=== PATIENT | female | born 1950 | race African-American/Black ===

== ENCOUNTER 2016-09-22 04:58 | Inpatient (IN) | payer MEDICARE, MEDICAID ==
[2016-09-22] MEDS ORDERED: ALBUTEROL SULFATE 0.083% NEB 2.5 MG/3 ML AMPUL NEB ONE ×2 (05:11→07:45)
[2016-09-22] MEDS ORDERED: PREDNISONE 20 MG TABLET PO ONE (05:12)
[2016-09-22] MEDS: ALBUTEROL SULFATE 0.083% NEB 2.5 MG/3 ML AMPUL NEB SCH ×2 (05:12→05:14)
[2016-09-22] MEDS ORDERED: IPRATROPIUM/ALBUTEROL 0.5-2.5 MG/3 ML AMPUL NEB ONE ×2 (05:12→05:46)
--- NOTE | 2016-09-22 05:49 | ER Document Report ---
Doctor's Note Notes: 09/22/16 05:47 I performed a quick triage evaluation of the patient. Patient is a pleasant 65- year-old female with a history of asthma. Patient has been having difficulty breathing since Monday. She's been trying to treat herself at home with breathing treatments. Breathing became much worse overnight tonight. She comes in with tightness and wheezing along some difficulty breathing. On exam she has some mild accessory muscle use. She has poor to fair air movement. On auscultation she has diffuse wheezing. No fevers. She's able to speak in 4-5 word sentences. No previous history of intubation. I will order breathing treatments. We'll give her BiPAP. She's had BiPAP in the past and says it works well for her. I will order magnesium. She's already had Solu-Medrol in triage.
[2016-09-22] MEDS: MAGNESIUM SULFATE/D5W 100 ML IV SCH (06:10)
[2016-09-22 06:12] LABS: ABSOLUTE BASOPHILS # (AUTO) 0.1 10^3/uL (0.0-0.2); ABSOLUTE EOSINOPHILS # (AUTO) 1.1 10^3/uL (0.0-0.6); ABSOLUTE LYMPHOCYTES (AUTO) 2.6 10^3/uL (0.5-4.7); ABSOLUTE NEUT (AUTO) 8.3 10^3/uL (1.7-8.2); BASOPHILS % (AUTO) 0.6 % (0-2); EOSINOPHILS % (AUTO) 8.2 % (0-6); HEMATOCRIT 37.5 % (36.0-47.0); HEMOGLOBIN 12.5 g/dL (12.0-15.5); MEAN CORPUSCULAR HEMOGLOBIN 30.3 pg (27.0-33.4); MEAN CORPUSCULAR HGB CONC 33.4 g/dL (32.0-36.0); MEAN CORPUSCULAR VOLUME 91 fl (80-97); MONOCYTES % (AUTO) 7.8 % (3-13); RED BLOOD COUNT 4.14 10^6/uL (3.72-5.28); SEGMENTED NEUTROPHILS % (AUTO) 63.4 % (42-78)
[2016-09-22 06:26] LABS: ANION GAP 12 (5-19); BLOOD UREA NITROGEN 17 mg/dL (7-20); CALCIUM 9.6 mg/dL (8.4-10.2); CARBON DIOXIDE 27 mmol/L (22-30); CHLORIDE 102 mmol/L (98-107); CREATININE RESULT 0.81 mg/dL (0.52-1.25); GLUCOSE 96 mg/dL (75-110); POTASSIUM 3.9 mmol/L (3.6-5.0); SODIUM 140.5 mmol/L (137-145)
[2016-09-22] MEDS ORDERED: NORMAL SALINE 1000 ML 1,000 ML IV ONE (06:36)
[2016-09-22 06:54] LABS: TROPONIN I < 0.012 ng/mL
--- NOTE | 2016-09-22 07:44 | ER Document Report ---
ED General - General Chief Complaint: Asthma Exacerbation Stated Complaint: DIFFICULTY BREATHING TRAVEL OUTSIDE OF THE [place] IN LAST 30 DAYS: No - HPI Patient complains to provider of: asthma exacerbation Notes: Patient coming in for evaluation shortness of breath. States ongoing for the last few days. Patient states she has been on steroids no recent antibiotics no recent travel. Patient denies fevers. Patient states history of asthma exacerbations rales time in the past normal required BiPAP. Patient states that she's never been intubated before. Patient upon my evaluation is Tom on BiPAP after breathing treatment station that she feels a lot better. - Related Data Allergies/Adverse Reactions: Penicillins Allergy (Intermediate, Verified 11/04/15 10:36) Nausea Home Medications: Current Home Medications Albuterol Sulfate [Ventolin HFA MDI 18 GM] 2 puff IH Q4HP PRN 09/22/16 [History] Citalopram Hydrobromide [Celexa 20 mg Tablet] 20 mg PO DAILY 09/22/16 [History] Ergocalciferol (Vitamin D2) [Drisdol 50,000 Unit (1.25MG) Capsule] 1 cap PO FR@ 1000 09/22/16 [History] Ipratropium/Albuterol Sulfate [Duoneb 3 ml Ampul] 3 ml NEB RTQID 09/22/16 [ History] Lisinopril/Hydrochlorothiazide [Lisinopril-Hctz 20-12.5 mg Tab] 1 each PO DAILY 09/22/16 [History] Loratadine [Claritin 10 mg Tablet] 10 mg PO DAILY 09/22/16 [History] Lovastatin (Mevacor) 20 Mg 20 mg PO QHS 09/22/16 [History] Nystatin 500,000 unit PO QID 09/22/16 [History] Omeprazole 40 mg PO QAM 09/22/16 [History] Oxycodone HCl/Acetaminophen [Percocet 5-325 mg Tablet] 1 tab PO TIDP PRN [History] Potassium Chloride 20 meq PO DAILY 09/22/16 [History] Past Medical History - Social History Smoking Status: Unknown if Ever Smoked Chew tobacco use (# tins/day): No Frequency of alcohol use: None Drug Abuse: None Family History: Reviewed & Not Pertinent Patient has suicidal ideation: No Patient has homicidal ideation: No - Past Medical History Cardiac Medical History: Reports: Hx Hypercholesterolemia, Hx Hypertension Denies: Hx Coronary Artery Disease, Hx Heart Attack Pulmonary Medical History: Reports: Hx Asthma, Hx COPD, Hx Pneumonia Denies: Hx Bronchitis Neurological Medical History: Denies: Hx Cerebrovascular Accident, Hx Seizures Renal/ Medical History: Denies: Hx Peritoneal Dialysis Musculoskeltal Medical History: Denies Hx Arthritis Psychiatric Medical History: Reports: Hx Depression Past Surgical History: Reports: Hx Bowel Surgery, Hx Hysterectomy, Hx Orthopedic Surgery - Right ORIF, Hx Umbilical Hernia - Immunizations Immunizations up to date: Yes Hx Diphtheria, Pertussis, Tetanus Vaccination: Yes Hx Pneumococcal Vaccination: 10/20/11 Review of Systems - Review of Systems Constitutional: No symptoms reported EENT: No symptoms reported Cardiovascular: No symptoms reported Respiratory: Short of breath, Wheezing Gastrointestinal: No symptoms reported Genitourinary: No symptoms reported Female Genitourinary: No symptoms reported Musculoskeletal: No symptoms reported Skin: No symptoms reported Hematologic/Lymphatic: No symptoms reported Neurological/Psychological: No symptoms reported -: Yes All other systems reviewed and negative Physical Exam - Vital signs Vitals: Temp Pulse Resp BP Pulse Ox 98.3 F 113 H 30 H 125/78 92 09/22/16 05:02 09/22/16 05:02 09/22/16 05:02 09/22/16 05:02 09/22/16 05:02 Interpretation: Normal - General General appearance: Appears well, Alert - HEENT Head: Normocephalic, Atraumatic Eyes: Normal Pupils: PERRL - Respiratory Respiratory status: Respiratory distress - Mild on BiPAP Chest status: Nontender Breath sounds: Wheezing Chest palpation: Normal - Cardiovascular Rhythm: Regular Heart sounds: Normal auscultation Murmur: No - Abdominal Inspection: Normal Distension: No distension Bowel sounds: Normal Tenderness: Nontender Organomegaly: No organomegaly - Back Back: Normal, Nontender - Extremities General upper extremity: Normal inspection, Nontender, Normal color, Normal ROM , Normal temperature General lower extremity: Normal inspection, Nontender, Normal color, Normal ROM , Normal temperature, Normal weight bearing. No: Bette's sign - Neurological Neuro grossly intact: Yes Cognition: Normal Orientation: AAOx4 Selmer Coma Scale Eye Opening: Spontaneous Selmer Coma Scale Verbal: Oriented Selmer Coma Scale Motor: Obeys Commands Sweta Coma Scale Total: 15 Speech: Normal Motor strength normal: LUE, RUE, LLE, RLE Sensory: Normal - Psychological Associated symptoms: Normal affect, Normal mood - Skin Skin Temperature: Warm Skin Moisture: Dry Skin Color: Normal Course - Re-evaluation Re-evalutation: 09/22/16 14:38 We were able to titrate the BiPAP off the patient however still requiring oxygen. Multiple reevaluation patient's lung sounds continued to be very coarse wheezing with mild tachypnea. Discussed with PCP will admit the patient for further observation. - Vital Signs Vital signs: Temp Pulse Resp BP Pulse Ox 98.3 F 113 H 26 H 121/63 96 09/22/16 05:02 09/22/16 05:02 09/22/16 11:01 09/22/16 11:00 09/22/16 11:01 - Laboratory Result Diagrams: 09/22/16 05:53 09/22/16 05:53 Laboratory results interpreted by me: 09/22/16 09/22/16 05:53 05:53 WBC 13.0 H RDW 15.0 H Eosinophils % 8.2 H Absolute Neutrophils 8.3 H Absolute Eosinophils 1.1 H Magnesium 1.4 L Critical Care Note - Critical Care Note Total time excluding time spent on procedures (mins): 35 Comments: Multiple evaluations managing BiPAP patient with mild respiratory distress Discharge - Discharge Clinical Impression: Asthma exacerbation Condition: Good Disposition: ADMITTED INPATIENT Admitting Provider: Cresencio Unit Admitted: DOUG
[2016-09-22] MEDS ORDERED: ACETAMINOPHEN 325 MG TABLET PO PRN (12:57)
[2016-09-22] MEDS ORDERED: METHYLPREDNISOLONE INJ 125 MG/2 ML SDV IV ONE (13:30)
--- NOTE | 2016-09-22 14:21 | EKG REPORT ---
SEVERITY:- BORDERLINE ECG - SINUS TACHYCARDIA BORDERLINE PROLONGED QT INTERVAL : Confirmed by: Fernanda Zuniga 22-Sep-2016 14:21:15
[2016-09-22] MEDS: LEVALBUTEROL HCL NEB 1.25 MG/3 ML AMPUL NEB SCH ×2 (14:28→20:28)
[2016-09-22] MEDS: METHYLPREDNISOLONE INJ 125 MG/2 ML SDV IV SCH ×2 (15:25→19:52)
--- NOTE | 2016-09-22 16:58 | PDOC H&P ---
History of Present Illness Admission Date/PCP: 09/22/16 12:57 DAYTON BROWN MD Patient complains of: Worsening chest tightness, dyspnea and wheezes for 4 days. History of Present Illness: MEL SHAY is a 65 year old female with hx of asthma/HTN/Hyperlipidemia/ Chronic back pain/Hip pain s.p right hip replacement/Intestinal malabsorption/ Vitamin D def./Allergic rhinitis/Depression/Morbid obesity who was having worsening dyspnea, wheezes and chest tightness despite using nebulizers at home.She was brought to ER by family for mgt. Past Medical History Cardiac Medical History: Reports: Hyperlipidema, Hypertension Denies: Coronary Artery Disease, Myocardial Infarction Pulmonary Medical History: Reports: Asthma, Chronic Obstructive Pulmonary Disease (COPD), Pneumonia Denies: Bronchitis Neurological Medical History: Denies: Seizures Musculoskeltal Medical History: Denies: Arthritis Psychiatric Medical History: Reports: Depression Hematology: Denies: Anemia Past Surgical History Past Surgical History: Reports: Hysterectomy, Orthopedic Surgery - Right ORIF Social History Smoking Status: Unknown if Ever Smoked Frequency of Alcohol Use: None Hx Recreational Drug Use: No Drugs: None Hx Prescription Drug Abuse: No - Advance Directive Resuscitation Status: Full Code Family History Family History: Reviewed & Not Pertinent Parental Family History Reviewed: Yes Children Family History Reviewed: Yes Sibling(s) Family History Reviewed.: Yes Medication/Allergy Home Medications: Albuterol Sulfate [Ventolin HFA MDI 18 GM] 2 puff IH Q4HP PRN 09/22/16 Citalopram Hydrobromide [Celexa 20 mg Tablet] 20 mg PO DAILY 09/22/16 Ergocalciferol (Vitamin D2) [Drisdol 50,000 Unit (1.25MG) Capsule] 1 cap PO FR@ 1000 09/22/16 Ipratropium/Albuterol Sulfate [Duoneb 3 ml Ampul] 3 ml NEB RTQID 09/22/16 Lisinopril/Hydrochlorothiazide [Lisinopril-Hctz 20-12.5 mg Tab] 1 each PO DAILY 09/22/16 Loratadine [Claritin 10 mg Tablet] 10 mg PO DAILY 09/22/16 Lovastatin (Mevacor) 20 Mg 20 mg PO QHS 09/22/16 Nystatin 500,000 unit PO QID 09/22/16 Omeprazole 40 mg PO QAM 09/22/16 Oxycodone HCl/Acetaminophen [Percocet 5-325 mg Tablet] 1 tab PO TIDP PRN Potassium Chloride 20 meq PO DAILY 09/22/16 Allergies/Adverse Reactions: Penicillins Allergy (Intermediate, Verified 11/04/15 10:36) Nausea Review of Systems Constitutional: PRESENT: as per HPI Eyes: PRESENT: as per HPI Ears: PRESENT: as per HPI Nose, Mouth, and Throat: PRESENT: as per HPI Breasts: PRESENT: as per HPI Cardiovascular: PRESENT: chest pain, dyspnea on exertion Respiratory: PRESENT: cough, dyspnea Gastrointestinal: PRESENT: as per HPI Genitourinary: PRESENT: as per HPI Musculoskeletal: PRESENT: as per HPI Neurological: PRESENT: as per HPI Psychiatric: PRESENT: as per HPI Endocrine: PRESENT: as per HPI Hematologic/Lymphatic: PRESENT: as per HPI Physical Exam Vital Signs: Temp Pulse Resp BP Pulse Ox 98.2 F 110 H 24 H 107/60 97 09/22/16 15:41 09/22/16 15:41 09/22/16 15:41 09/22/16 15:41 09/22/16 15:41 General appearance: PRESENT: severe distress, well-developed, well-nourished Head exam: PRESENT: normocephalic Eye exam: PRESENT: EOMI, PERRLA Ear exam: PRESENT: normal external ear exam, TM's normal bilaterally Mouth exam: PRESENT: moist, neck supple, tongue midline Respiratory exam: PRESENT: decreased breath sounds, wheezes Cardiovascular exam: PRESENT: +S1, +S2 Pulses: PRESENT: +2 pedal pulses bilateral GI/Abdominal exam: PRESENT: normal bowel sounds, soft Rectal exam: PRESENT: deferred Extremities exam: PRESENT: full ROM Musculoskeletal exam: PRESENT: full ROM Neurological exam: PRESENT: alert, awake, oriented to person, oriented to place , oriented to time, CN II-XII grossly intact Psychiatric exam: PRESENT: normal mood Results Impressions: Chest X-Ray 09/22/16 05:46 IMPRESSION: Borderline cardiomegaly with central pulmonary vascular congestion , similar to prior studies. Assessment & Plan - Diagnosis (1) Asthma exacerbation Is this a current diagnosis for this admission?: YesPlan: Ct with oxygen by N/C at 2-3 L/min; Duonebs q4h prn; Xopenex nebs 1.25 mg q6h; Solumedrol 80 mg q6h IV; Levaquin 500 mg qd IV; Symbicort 160/4.5 2 puffs BID. (2) Hypertension Is this a current diagnosis for this admission?: YesPlan: Ct with Lisinopril/HCTZ 20/25 1 qd po; 2 g sodium diet. (3) Hyperlipidemia Is this a current diagnosis for this admission?: YesPlan: Ct with Atorvastain 10 mg qhs since we do not have Lovastatin in our formulary; 200 mg cholesterol diet. (4) Lumbago Qualifiers: Chronicity: chronic Sciatica presence: without sciatica Is this a current diagnosis for this admission?: YesPlan: Ct with Percocet 5/325 1 q6h prn po. Celebrex 200 mg qd po. (5) Intestinal malabsorption Qualifiers: Intestinal malabsorption type: unspecified Qualified Code(s): K90.9 - Intestinal malabsorption, unspecified Is this a current diagnosis for this admission?: YesPlan: Ct with Cholestyramine 4 g BID po. (6) Vitamin D deficiency Is this a current diagnosis for this admission?: YesPlan: Ct with Vitamin D 20599mc weekly po. (7) Rhinitis, allergic Is this a current diagnosis for this admission?: YesPlan: Ct with Claritin 10 mg qd po (8) Depression Is this a current diagnosis for this admission?: YesPlan: Ct with Celexa 20 mg qd po. (9) DVT prophylaxis Is this a current diagnosis for this admission?: YesPlan: Ct with Lovenox 40 mg qd subcut; SCD. - Time Time Spent: 30 to 50 Minutes Medications reviewed and adjusted accordingly: Yes Anticipated discharge: Home Within: within 72 hours - Inpatient Certification Medical Necessity: Failure to Improve With Outpatient Therapy, Significant Comorbidiites Make Outpatient Treatment Too Risky, Need For Continuous Telemetry Monitoring, Need for Nebulizer Therapy and Monitoring of Response, Need for IV Antibiotics
[2016-09-22] MEDS: IPRATROPIUM/ALBUTEROL 0.5-2.5 MG/3 ML AMPUL NEB PRN (17:59)
[2016-09-22] MEDS: CHOLESTYRAMINE/ASPARTAME 4 GM PACKET PO SCH (19:52)
[2016-09-22] MEDS: ATORVASTATIN CALCIUM 10 MG TABLET PO SCH (21:25)
[2016-09-22] MEDS: BUDESONIDE/FORMOTEROL 160-4.5 MCG 60 PUFF/6 GM MDI IH SCH (21:26)
[2016-09-22] MEDS: OXYCODONE-ACETAMINOPHEN 5-325 MG TABLET PO PRN (23:55)
[2016-09-23] MEDS: METHYLPREDNISOLONE INJ 125 MG/2 ML SDV IV SCH ×4 (01:20→21:30)
[2016-09-23] MEDS: LEVALBUTEROL HCL NEB 1.25 MG/3 ML AMPUL NEB SCH ×4 (02:28→20:54)
[2016-09-23 04:33] LABS: ABSOLUTE LYMPHOCYTES (AUTO) 0.8 10^3/uL (0.5-4.7); ABSOLUTE MONOCYTES (AUTO) 0.3 10^3/uL (0.1-1.4); ABSOLUTE NEUT (AUTO) 10.1 10^3/uL (1.7-8.2); BASOPHILS % (AUTO) 0.1 % (0-2); EOSINOPHILS % (AUTO) 0.1 % (0-6); HEMATOCRIT 35.1 % (36.0-47.0); HEMOGLOBIN 11.7 g/dL (12.0-15.5); LYMPHOCYTES % (AUTO) 7.1 % (13-45); MEAN CORPUSCULAR HEMOGLOBIN 30.3 pg (27.0-33.4); MEAN CORPUSCULAR HGB CONC 33.3 g/dL (32.0-36.0); MEAN CORPUSCULAR VOLUME 91 fl (80-97); MONOCYTES % (AUTO) 2.4 % (3-13); RED BLOOD COUNT 3.87 10^6/uL (3.72-5.28); RED CELL DISTRIBUTION WIDTH 15.1 % (11.5-14.0); SEGMENTED NEUTROPHILS % (AUTO) 90.3 % (42-78); WHITE BLOOD COUNT 11.2 10^3/uL (4.0-10.5)
[2016-09-23 04:51] LABS: ALANINE AMINOTRANSFERASE 22 U/L (9-52); ALBUMIN 3.8 g/dL (3.5-5.0); ALKALINE PHOSPHATASE 75 U/L (38-126); ANION GAP 12 (5-19); ASPARTATE AMINO TRANSFERASE 20 U/L (14-36); BILIRUBIN,DIRECT 0.2 mg/dL (0.0-0.4); BILIRUBIN,TOTAL 0.9 mg/dL (0.2-1.3); BLOOD UREA NITROGEN 18 mg/dL (7-20); CALCIUM 9.6 mg/dL (8.4-10.2); CARBON DIOXIDE 27 mmol/L (22-30); CHLORIDE 101 mmol/L (98-107); CREATININE RESULT 0.78 mg/dL (0.52-1.25); Direct HDL 106 mg/dL (>40); GLUCOSE 194 mg/dL (75-110); POTASSIUM 4.2 mmol/L (3.6-5.0); SODIUM 140.1 mmol/L (137-145); TOTAL PROTEIN 6.3 g/dL (6.3-8.2); TRIGLYCERIDES 111 mg/dL (<150)
[2016-09-23 05:02] LABS: DIRECT LDL 56 mg/dL (<100)
[2016-09-23] MEDS: LANSOPRAZOLE 30 MG TAB.RAP.DR PO SCH (05:47)
[2016-09-23] MEDS: CHOLESTYRAMINE/ASPARTAME 4 GM PACKET PO SCH ×2 (08:37→18:08)
[2016-09-23] MEDS: ENOXAPARIN SODIUM INJ 40 MG/0.4 ML DISP.SYRIN SUBCUT SCH (08:41)
[2016-09-23] MEDS: LISINOPRIL 10 MG TABLET PO SCH (10:09)
[2016-09-23] MEDS: LEVOFLOXACIN 500 MG/D5W RTU 100 ML IV SCH (10:09)
[2016-09-23] MEDS: DOCUSATE SODIUM 100 MG CAPSULE PO SCH (10:10)
[2016-09-23] MEDS: CITALOPRAM HYDROBROMIDE 20 MG TABLET PO SCH (10:10)
[2016-09-23] MEDS: CELECOXIB 200 MG CAPSULE PO SCH (10:10)
[2016-09-23] MEDS: HYDROCHLOROTHIAZIDE 25 MG TABLET PO SCH (10:11)
[2016-09-23] MEDS: LORATADINE 10 MG TABLET PO SCH (10:11)
[2016-09-23] MEDS: BUDESONIDE/FORMOTEROL 160-4.5 MCG 60 PUFF/6 GM MDI IH SCH ×2 (10:12→21:30)
[2016-09-23] MEDS: OXYCODONE-ACETAMINOPHEN 5-325 MG TABLET PO PRN (10:20)
--- NOTE | 2016-09-23 13:01 | PDOC PROGRESS REPORT ---
Subjective Progress Note for:: 09/23/16 Subjective:: She is feeling better and dyspnea and wheezes have decreased. We will decrease Solumedrol to 60 mg q6h IV. Physical Exam Vital Signs: Temp Pulse Resp BP Pulse Ox 97.8 F 108 H 20 142/68 H 98 09/23/16 11:55 09/23/16 11:55 09/23/16 11:55 09/23/16 11:55 09/23/16 11:55 Intake & Output 09/22/16 09/23/16 09/24/16 06:59 06:59 06:59 Intake Total 320 720 Balance 320 720 Weight 117.1 kg General appearance: PRESENT: no acute distress, well-developed, well-nourished Head exam: PRESENT: atraumatic, normocephalic Eye exam: PRESENT: EOMI, PERRLA Ear exam: PRESENT: TM's normal bilaterally Mouth exam: PRESENT: moist, neck supple, tongue midline Respiratory exam: PRESENT: decreased breath sounds, wheezes Cardiovascular exam: PRESENT: +S1, +S2 Pulses: PRESENT: +2 pedal pulses bilateral GI/Abdominal exam: PRESENT: normal bowel sounds, soft Extremities exam: PRESENT: full ROM Musculoskeletal exam: PRESENT: full ROM Neurological exam: PRESENT: alert, awake, oriented to person, oriented to place , oriented to time, CN II-XII grossly intact Psychiatric exam: PRESENT: normal mood Results Laboratory Results: 09/23/16 04:07 09/23/16 04:07 09/23/16 09/23/16 09/23/16 04:07 04:07 04:07 WBC 11.2 H RBC 3.87 Hgb 11.7 L Hct 35.1 L MCV 91 MCH 30.3 MCHC 33.3 RDW 15.1 H Plt Count 163 Seg Neutrophils % 90.3 H Lymphocytes % 7.1 L Monocytes % 2.4 L Eosinophils % 0.1 Basophils % 0.1 Absolute Neutrophils 10.1 H Absolute Lymphocytes 0.8 Absolute Monocytes 0.3 Absolute Eosinophils 0.0 Absolute Basophils 0.0 Sodium 140.1 Potassium 4.2 Chloride 101 Carbon Dioxide 27 Anion Gap 12 BUN 18 Creatinine 0.78 Est GFR ( Amer) > 60 Est GFR (Non-Af Amer) > 60 Glucose 194 H Calcium 9.6 Total Bilirubin 0.9 AST 20 ALT 22 Alkaline Phosphatase 75 Total Protein 6.3 Albumin 3.8 Triglycerides 111 Cholesterol 181.40 LDL Cholesterol Direct 56 VLDL Cholesterol 22.0 HDL Cholesterol 106 TSH 0.19 L Impressions: Chest X-Ray 09/22/16 05:46 IMPRESSION: Borderline cardiomegaly with central pulmonary vascular congestion , similar to prior studies. Assessment & Plan - Diagnosis (1) Asthma exacerbation Is this a current diagnosis for this admission?: YesPlan: Ct with oxygen by N/C at 2-3 L/min; Duonebs q4h prn; Xopenex nebs 1.25 mg q6h; Solumedrol 60 mg q6h IV; Levaquin 500 mg qd IV; Symbicort 160/4.5 2 puffs BID. (2) Hypertension Is this a current diagnosis for this admission?: YesPlan: Ct with Lisinopril/HCTZ 20/25 1 qd po; 2 g sodium diet. (3) Hyperlipidemia Is this a current diagnosis for this admission?: YesPlan: Ct with Atorvastain 10 mg qhs since we do not have Lovastatin in our formulary; 200 mg cholesterol diet. (4) Lumbago Qualifiers: Chronicity: chronic Sciatica presence: without sciatica Is this a current diagnosis for this admission?: YesPlan: Ct with Percocet 5/325 1 q6h prn po. Celebrex 200 mg qd po. (5) Intestinal malabsorption Qualifiers: Intestinal malabsorption type: unspecified Qualified Code(s): K90.9 - Intestinal malabsorption, unspecified Is this a current diagnosis for this admission?: YesPlan: Ct with Cholestyramine 4 g BID po. (6) Vitamin D deficiency Is this a current diagnosis for this admission?: YesPlan: Ct with Vitamin D 28248mi weekly po. (7) Rhinitis, allergic Is this a current diagnosis for this admission?: YesPlan: Ct with Claritin 10 mg qd po (8) Depression Is this a current diagnosis for this admission?: YesPlan: Ct with Celexa 20 mg qd po. (9) DVT prophylaxis Is this a current diagnosis for this admission?: YesPlan: Ct with Lovenox 40 mg qd subcut; SCD.
[2016-09-23] MEDS: ATORVASTATIN CALCIUM 10 MG TABLET PO SCH (21:29)
[2016-09-24] MEDS: LEVALBUTEROL HCL NEB 1.25 MG/3 ML AMPUL NEB SCH ×4 (02:10→20:33)
[2016-09-24] MEDS: METHYLPREDNISOLONE INJ 125 MG/2 ML SDV IV SCH ×4 (04:10→22:21)
[2016-09-24] MEDS: LANSOPRAZOLE 30 MG TAB.RAP.DR PO SCH (06:29)
[2016-09-24 06:31] LABS: HEMATOCRIT 34.4 % (36.0-47.0); HEMOGLOBIN 11.4 g/dL (12.0-15.5); HGB HCT DIFFERENCE -0.2; MEAN CORPUSCULAR HEMOGLOBIN 30.1 pg (27.0-33.4); MEAN CORPUSCULAR HGB CONC 33.2 g/dL (32.0-36.0); MEAN CORPUSCULAR VOLUME 91 fl (80-97); WHITE BLOOD COUNT 15.4 10^3/uL (4.0-10.5)
[2016-09-24 06:55] LABS: ANISOCYTOSIS SLIGHT; BAND NEUTROPHILS % (MANUAL) 1 % (3-5); BASOPHILS % (MANUAL) 0 % (0-2); BURR CELLS SLIGHT; EOSINOPHILS % (MANUAL) 1 % (0-6); LYMPHOCYTES % (MANUAL) 5 % (13-45); OVALOCYTES SLIGHT; POIKILOCYTOSIS SLIGHT; TOTAL CELLS COUNTED 100; TOXIC GRANULATION 1+
[2016-09-24 06:57] LABS: ALANINE AMINOTRANSFERASE 22 U/L (9-52); ALBUMIN 3.6 g/dL (3.5-5.0); ALKALINE PHOSPHATASE 70 U/L (38-126); ANION GAP 15 (5-19); ASPARTATE AMINO TRANSFERASE 18 U/L (14-36); BILIRUBIN,DIRECT 0.3 mg/dL (0.0-0.4); BILIRUBIN,TOTAL 0.6 mg/dL (0.2-1.3); BLOOD UREA NITROGEN 17 mg/dL (7-20); CALCIUM 9.6 mg/dL (8.4-10.2); CARBON DIOXIDE 24 mmol/L (22-30); CHLORIDE 100 mmol/L (98-107); GLUCOSE 197 mg/dL (75-110); POTASSIUM 4.2 mmol/L (3.6-5.0); SODIUM 138.7 mmol/L (137-145); TOTAL PROTEIN 5.9 g/dL (6.3-8.2)
[2016-09-24] MEDS: ENOXAPARIN SODIUM INJ 40 MG/0.4 ML DISP.SYRIN SUBCUT SCH (08:45)
[2016-09-24] MEDS: CHOLESTYRAMINE/ASPARTAME 4 GM PACKET PO SCH ×2 (08:46→18:15)
[2016-09-24] MEDS ORDERED: GLUCAGON,HUMAN RECOMB 1 MG INJ IM PRN (08:52)
[2016-09-24] MEDS ORDERED: DEXTROSE 50%-WATER 25 GM/50 ML DISP.SYRIN IV PRN ×2 (08:52)
[2016-09-24] MEDS ORDERED: DEXTROSE 40% GEL 15 GM TUBE PO PRN ×2 (08:52)
[2016-09-24 09:44] LABS: FREE T3 2.59 pg/mL (2.77-5.27)
[2016-09-24] MEDS: HYDROCHLOROTHIAZIDE 25 MG TABLET PO SCH (10:24)
[2016-09-24] MEDS: LORATADINE 10 MG TABLET PO SCH (10:25)
[2016-09-24] MEDS: LISINOPRIL 10 MG TABLET PO SCH (10:25)
[2016-09-24] MEDS: CELECOXIB 200 MG CAPSULE PO SCH (10:25)
[2016-09-24] MEDS: CITALOPRAM HYDROBROMIDE 20 MG TABLET PO SCH (10:25)
[2016-09-24] MEDS: LEVOFLOXACIN 500 MG/D5W RTU 100 ML IV SCH (10:26)
[2016-09-24] MEDS: DOCUSATE SODIUM 100 MG CAPSULE PO SCH (10:26)
[2016-09-24] MEDS: BUDESONIDE/FORMOTEROL 160-4.5 MCG 60 PUFF/6 GM MDI IH SCH ×2 (10:36→22:21)
[2016-09-24] MEDS: IPRATROPIUM/ALBUTEROL 0.5-2.5 MG/3 ML AMPUL NEB SCH ×3 (12:36→20:33)
[2016-09-24] MEDS: INSULIN LISPRO 100 UNIT/ML 3 ML VIAL SUBCUT PRN ×2 (13:16→18:15)
--- NOTE | 2016-09-24 20:15 | PDOC PROGRESS REPORT ---
Subjective Progress Note for:: 09/24/16 Subjective:: Patient seen earlier today on morning rounds. Patient reports she's feeling significantly better. Patient denies chest pain, abdominal pain, nausea, vomiting, fevers, chills, diarrhea, constipation, headache, new onset weakness. Physical Exam Vital Signs: Temp Pulse Resp BP Pulse Ox 98.2 F 89 18 134/71 H 94 09/24/16 07:58 09/24/16 16:33 09/24/16 16:33 09/24/16 07:58 09/24/16 16:33 Intake & Output 09/23/16 09/24/16 09/25/16 06:59 06:59 06:59 Intake Total 320 2202 1200 Output Total 3 Balance 320 2202 1197 Weight 117.1 kg 104.8 kg Exam: General: Awake alert and oriented 3, no acute respiratory distress, obese HEENT: AT/NC, PERRL, EOMI, oropharynx is moist, pink, no scleral icterus, no conjunctival injection Neck: No JVD, trachea midline Chest: Bilateral end expiratory wheezes CV: Regular rate and rhythm, normal S1 and S2, no murmur, rub, or gallop Abdomen: Soft, nontender to palpation, nondistended, active bowel sounds; no rebound, rigidity, or guarding Extremities: No cyanosis, clubbing; 1+edema Neuro: Cranial nerves II through XII are grossly intact without focal deficits; awake alert and oriented 3 Psych: Normal mood and affect Results Laboratory Results: 09/24/16 05:24 09/24/16 05:24 09/24/16 09/24/16 09/24/16 05:24 05:24 05:24 WBC 15.4 H RBC 3.80 Hgb 11.4 L Hct 34.4 L MCV 91 MCH 30.1 MCHC 33.2 RDW 15.0 H Plt Count 161 Seg Neutrophils % Not Reportable Lymphocytes % Not Reportable Monocytes % Not Reportable Eosinophils % Not Reportable Basophils % Not Reportable Absolute Neutrophils Not Reportable Absolute Lymphocytes Not Reportable Absolute Monocytes Not Reportable Absolute Eosinophils Not Reportable Absolute Basophils Not Reportable Sodium 138.7 Potassium 4.2 Chloride 100 Carbon Dioxide 24 Anion Gap 15 BUN 17 Creatinine 0.70 Est GFR ( Amer) > 60 Est GFR (Non-Af Amer) > 60 Glucose 197 H Calcium 9.6 Total Bilirubin 0.6 AST 18 ALT 22 Alkaline Phosphatase 70 Total Protein 5.9 L Albumin 3.6 Free T4 1.00 Free T3 pg/mL 2.59 L Impressions: Chest X-Ray 09/22/16 05:46 IMPRESSION: Borderline cardiomegaly with central pulmonary vascular congestion , similar to prior studies. Assessment & Plan - Diagnosis (1) Acute respiratory failure with hypoxia Is this a current diagnosis for this admission?: YesPlan: Continue oxygen as needed (2) Asthma exacerbation Is this a current diagnosis for this admission?: YesPlan: Continue patient on current study Medrol dosing. Due to current bronchospasm feel that patient is not quite ready for de-escalation to oral steroids. Continue nebulized treatments (3) Depression Is this a current diagnosis for this admission?: Yes (4) Hyperlipidemia Is this a current diagnosis for this admission?: Yes (5) Hypertension Is this a current diagnosis for this admission?: YesPlan: Continue home medications (6) Obesity Qualifiers: Obesity type: due to excess calories Obesity severity: morbid Qualified Code(s): E66.01 - Morbid (severe) obesity due to excess calories Is this a current diagnosis for this admission?: Yes (7) Vitamin D deficiency Is this a current diagnosis for this admission?: Yes (8) DVT prophylaxis Is this a current diagnosis for this admission?: Yes - Time Time Spent with patient: 15-24 minutes Medications reviewed and adjusted accordingly: Yes Anticipated discharge: Home Within: within 48 hours
[2016-09-24] MEDS: IPRATROPIUM/ALBUTEROL 0.5-2.5 MG/3 ML AMPUL NEB PRN (20:32)
[2016-09-24] MEDS ORDERED: IPRATROPIUM/ALBUTEROL 0.5-2.5 MG/3 ML AMPUL NEB ONE (21:00)
[2016-09-24] MEDS: ATORVASTATIN CALCIUM 10 MG TABLET PO SCH (22:21)
[2016-09-25] MEDS: METHYLPREDNISOLONE INJ 125 MG/2 ML SDV IV SCH ×2 (04:10→08:37)
[2016-09-25 06:28] LABS: HEMATOCRIT 35.1 % (36.0-47.0); HEMOGLOBIN 11.3 g/dL (12.0-15.5); HGB HCT DIFFERENCE -1.2; MEAN CORPUSCULAR HEMOGLOBIN 29.6 pg (27.0-33.4); MEAN CORPUSCULAR HGB CONC 32.3 g/dL (32.0-36.0); MEAN CORPUSCULAR VOLUME 92 fl (80-97); RED BLOOD COUNT 3.83 10^6/uL (3.72-5.28); RED CELL DISTRIBUTION WIDTH 15.1 % (11.5-14.0); WHITE BLOOD COUNT 11.5 10^3/uL (4.0-10.5)
[2016-09-25] MEDS: LANSOPRAZOLE 30 MG TAB.RAP.DR PO SCH (06:30)
[2016-09-25 06:51] LABS: BLOOD UREA NITROGEN 20 mg/dL (7-20); CALCIUM 9.7 mg/dL (8.4-10.2); CREATININE RESULT 0.75 mg/dL (0.52-1.25); GLUCOSE 203 mg/dL (75-110)
[2016-09-25 06:52] LABS: ALANINE AMINOTRANSFERASE 20 U/L (9-52); ALBUMIN 3.5 g/dL (3.5-5.0); ALKALINE PHOSPHATASE 64 U/L (38-126); ANION GAP 13 (5-19); ASPARTATE AMINO TRANSFERASE 19 U/L (14-36); BILIRUBIN,TOTAL 0.5 mg/dL (0.2-1.3); CARBON DIOXIDE 23 mmol/L (22-30); CHLORIDE 101 mmol/L (98-107); POTASSIUM 3.6 mmol/L (3.6-5.0); SODIUM 137.3 mmol/L (137-145); TOTAL PROTEIN 5.7 g/dL (6.3-8.2)
[2016-09-25 07:13] LABS: BAND NEUTROPHILS % (MANUAL) 3 % (3-5); BASOPHILS % (MANUAL) 0 % (0-2); EOSINOPHILS % (MANUAL) 0 % (0-6); LYMPHOCYTES % (MANUAL) 4 % (13-45); TOTAL CELLS COUNTED 100
[2016-09-25 07:14] LABS: ANISOCYTOSIS SLIGHT
[2016-09-25 07:16] LABS: OVALOCYTES 1+; POIKILOCYTOSIS 1+; POLYCHROMASIA SLIGHT; TARGET CELLS SLIGHT
[2016-09-25 07:18] LABS: BURR CELLS 1+
[2016-09-25] MEDS: IPRATROPIUM/ALBUTEROL 0.5-2.5 MG/3 ML AMPUL NEB SCH ×4 (08:24→20:22)
[2016-09-25] MEDS: OXYCODONE-ACETAMINOPHEN 5-325 MG TABLET PO PRN (08:37)
[2016-09-25] MEDS: CHOLESTYRAMINE/ASPARTAME 4 GM PACKET PO SCH ×2 (08:37→16:14)
[2016-09-25] MEDS: ENOXAPARIN SODIUM INJ 40 MG/0.4 ML DISP.SYRIN SUBCUT SCH (08:39)
[2016-09-25] MEDS: BUDESONIDE/FORMOTEROL 160-4.5 MCG 60 PUFF/6 GM MDI IH SCH ×2 (10:13→21:29)
[2016-09-25] MEDS: LISINOPRIL 10 MG TABLET PO SCH (10:13)
[2016-09-25] MEDS: LORATADINE 10 MG TABLET PO SCH (10:13)
[2016-09-25] MEDS: CITALOPRAM HYDROBROMIDE 20 MG TABLET PO SCH (10:14)
[2016-09-25] MEDS: DOCUSATE SODIUM 100 MG CAPSULE PO SCH (10:14)
[2016-09-25] MEDS: HYDROCHLOROTHIAZIDE 25 MG TABLET PO SCH (10:14)
[2016-09-25] MEDS: CELECOXIB 200 MG CAPSULE PO SCH (10:14)
[2016-09-25] MEDS: LEVOFLOXACIN 500 MG/D5W RTU 100 ML IV SCH (10:14)
[2016-09-25] MEDS: INSULIN LISPRO 100 UNIT/ML 3 ML VIAL SUBCUT PRN ×2 (11:54→21:29)
--- NOTE | 2016-09-25 15:22 | PDOC PROGRESS REPORT ---
Subjective Progress Note for:: 09/25/16 Subjective:: Patient reports she's breathing significantly better. Patient denies chest pain, abdominal pain, nausea, vomiting, fevers, chills, diarrhea, constipation, headache, new onset weakness. Physical Exam Vital Signs: Temp Pulse Resp BP Pulse Ox 98.5 F 89 18 146/72 H 94 09/25/16 00:16 09/25/16 02:00 09/25/16 00:16 09/25/16 00:16 09/25/16 00:16 Intake & Output 09/24/16 09/25/16 09/26/16 06:59 06:59 06:59 Intake Total 2202 1717 Output Total 3 Balance 2202 1714 Weight 104.8 kg Exam: General: Awake alert and oriented 3, no acute respiratory distress, obese HEENT: AT/NC, PERRL, EOMI, oropharynx is moist, pink, no scleral icterus, no conjunctival injection Neck: No JVD, trachea midline Chest: CTAB CV: IRR, normal S1 and S2, no murmur, rub, or gallop Abdomen: Soft, nontender to palpation, nondistended, active bowel sounds; no rebound, rigidity, or guarding Extremities: No cyanosis, clubbing; trace edema Neuro: Cranial nerves II through XII are grossly intact without focal deficits; awake alert and oriented 3 Psych: Normal mood and affect Results Laboratory Results: 09/25/16 05:24 09/25/16 05:24 09/24/16 09/25/16 09/25/16 05:24 05:24 05:24 WBC 11.5 H RBC 3.83 Hgb 11.3 L Hct 35.1 L MCV 92 MCH 29.6 MCHC 32.3 RDW 15.1 H Plt Count 179 Seg Neutrophils % Not Reportable Lymphocytes % Not Reportable Monocytes % Not Reportable Eosinophils % Not Reportable Basophils % Not Reportable Absolute Neutrophils Not Reportable Absolute Lymphocytes Not Reportable Absolute Monocytes Not Reportable Absolute Eosinophils Not Reportable Absolute Basophils Not Reportable Sodium 137.3 Potassium 3.6 Chloride 101 Carbon Dioxide 23 Anion Gap 13 BUN 20 Creatinine 0.75 Est GFR ( Amer) > 60 Est GFR (Non-Af Amer) > 60 Glucose 203 H Calcium 9.7 Total Bilirubin 0.5 AST 19 ALT 20 Alkaline Phosphatase 64 Total Protein 5.7 L Albumin 3.5 Free T4 1.00 Free T3 pg/mL 2.59 L Impressions: Chest X-Ray 09/22/16 05:46 IMPRESSION: Borderline cardiomegaly with central pulmonary vascular congestion , similar to prior studies. Assessment & Plan - Diagnosis (1) PAF (paroxysmal atrial fibrillation) Is this a current diagnosis for this admission?: YesPlan: Patient's heart rhythm is regular and reports that it is occasionally this way. She is on no rate controlling medications at home. Concern for PAF or PMAT. Will obtain cardiac enzymes and EKG. (2) Acute respiratory failure with hypoxia Is this a current diagnosis for this admission?: YesPlan: Continue oxygen as needed Continue treatment for asthma exacerbation. (3) Asthma exacerbation Is this a current diagnosis for this admission?: YesPlan: Transition patient to oral steroids today. Continue to monitor patient's response to nebulized treatments. (4) Depression Is this a current diagnosis for this admission?: Yes (5) Hyperlipidemia Is this a current diagnosis for this admission?: Yes (6) Hypertension Is this a current diagnosis for this admission?: Yes (7) Obesity Qualifiers: Obesity type: due to excess calories Obesity severity: morbid Qualified Code(s): E66.01 - Morbid (severe) obesity due to excess calories Is this a current diagnosis for this admission?: Yes (8) Vitamin D deficiency Is this a current diagnosis for this admission?: Yes (9) DVT prophylaxis Is this a current diagnosis for this admission?: Yes - Time Time Spent with patient: 25-34 minutes Medications reviewed and adjusted accordingly: Yes Anticipated discharge: Home Within: within 24 hours, within 48 hours
[2016-09-25 16:35] LABS: CREATINE KINASE MB 1.62 ng/mL (<4.55)
[2016-09-25 16:36] LABS: TROPONIN I < 0.012 ng/mL
[2016-09-25] MEDS: PREDNISONE 20 MG TABLET PO SCH (17:14)
[2016-09-25] MEDS: ATORVASTATIN CALCIUM 10 MG TABLET PO SCH (21:29)
--- NOTE | 2016-09-25 22:50 | EKG REPORT ---
SEVERITY:- BORDERLINE ECG - SINUS TACHYCARDIA VENTRICULAR PREMATURE COMPLEX INTERPOLATED VENTRICULAR PREMATURE COMPLEX : Confirmed by: Fernanda Zuniga 25-Sep-2016 22:49:05
[2016-09-26] MEDS: LANSOPRAZOLE 30 MG TAB.RAP.DR PO SCH (06:08)
[2016-09-26] MEDS: CHOLESTYRAMINE/ASPARTAME 4 GM PACKET PO SCH ×2 (07:51→16:25)
[2016-09-26] MEDS: ENOXAPARIN SODIUM INJ 40 MG/0.4 ML DISP.SYRIN SUBCUT SCH (07:51)
[2016-09-26] MEDS: IPRATROPIUM/ALBUTEROL 0.5-2.5 MG/3 ML AMPUL NEB SCH ×3 (08:10→16:10)
[2016-09-26] MEDS: LEVOFLOXACIN 500 MG/D5W RTU 100 ML IV SCH (10:11)
[2016-09-26] MEDS: LORATADINE 10 MG TABLET PO SCH (10:12)
[2016-09-26] MEDS: PREDNISONE 20 MG TABLET PO SCH (10:12)
[2016-09-26] MEDS: LISINOPRIL 10 MG TABLET PO SCH (10:12)
[2016-09-26] MEDS: CELECOXIB 200 MG CAPSULE PO SCH (10:12)
[2016-09-26] MEDS: DOCUSATE SODIUM 100 MG CAPSULE PO SCH (10:12)
[2016-09-26] MEDS: BUDESONIDE/FORMOTEROL 160-4.5 MCG 60 PUFF/6 GM MDI IH SCH (10:13)
[2016-09-26] MEDS: CITALOPRAM HYDROBROMIDE 20 MG TABLET PO SCH (10:13)
[2016-09-26] MEDS: HYDROCHLOROTHIAZIDE 25 MG TABLET PO SCH (10:13)
--- NOTE | 2016-09-26 16:53 | PDOC DISCHARGE SUMMARY ---
General - Admit/Disc Date/PCP Admission Date/Primary Care Provider: 09/22/16 12:57 DAYTON BROWN MD Discharge Date: 09/26/16 - Discharge Diagnosis (1) Asthma exacerbation Is this a current diagnosis for this admission?: Yes (2) Hypertension Is this a current diagnosis for this admission?: Yes (3) Hyperlipidemia Is this a current diagnosis for this admission?: Yes (4) Lumbago Is this a current diagnosis for this admission?: Yes (5) Intestinal malabsorption Is this a current diagnosis for this admission?: Yes (6) Vitamin D deficiency Is this a current diagnosis for this admission?: Yes (7) Rhinitis, allergic Is this a current diagnosis for this admission?: Yes (8) Depression Is this a current diagnosis for this admission?: Yes (9) DVT prophylaxis Is this a current diagnosis for this admission?: Yes - Additional Information Resuscitation Status: Full Code Discharge Activity: Activity As Tolerated Home Medications: Albuterol Sulfate [Ventolin HFA MDI 18 GM] 2 puff IH Q4HP PRN 09/22/16 Citalopram Hydrobromide [Celexa 20 mg Tablet] 20 mg PO DAILY 09/22/16 Ergocalciferol (Vitamin D2) [Drisdol 50,000 unit (1.25MG) Capsule] 1 cap PO FR@ 1000 09/22/16 Ipratropium/Albuterol Sulfate [Duoneb 3 ml Ampul] 3 ml NEB RTQID 09/22/16 Lisinopril/Hydrochlorothiazide [Lisinopril-Hctz 20-12.5 mg Tab] 1 each PO DAILY 09/22/16 Loratadine [Claritin 10 mg Tablet] 10 mg PO DAILY 09/22/16 Lovastatin (Mevacor) 20 Mg 20 mg PO QHS 09/22/16 Nystatin 500,000 unit PO QID 09/22/16 Omeprazole 40 mg PO QAM 09/22/16 Oxycodone HCl/Acetaminophen [Percocet 5-325 mg Tablet] 1 tab PO TIDP PRN Potassium Chloride 20 meq PO DAILY 09/22/16 Doxycycline Hyclate 100 mg PO BID #14 tablet 09/26/16 Prednisone [Deltasone 20 mg Tablet] 20 mg PO ASDIR #15 tablet 05/01/17 History of Present Illness History of Present Illness: MEL SHAY is a 65 year old female with hx of asthma/HTN/Hyperlipidemia/ Chronic back pain/Hip pain s.p right hip replacement/Intestinal malabsorption/ Vitamin D def./Allergic rhinitis/Depression/Morbid obesity who was having worsening dyspnea, wheezes and chest tightness despite using nebulizers at home.She was brought to ER by family for mgt. Hospital Course Hospital Course: 65 yr old woman who was admitted for acute hypoxic respiratory failure secondary to acute asthma exacerbation. She was admitted at [facility] and was put on IV solumedrol, Levaquin , nebulization and oxygen therapy. Her steroid was switched to prednisone and she is stable and back to her basleine. Her blood culture grew staph. species sensitive to Doxycycline. She will be discharged home on Prednisone and Doxycycline. She will f/u with PCP within 1 week. Physical Exam Vital Signs: Temp Pulse Resp BP Pulse Ox 98.6 F 102 H 24 H 151/87 H 100 09/26/16 15:44 09/26/16 16:13 09/26/16 16:13 09/26/16 15:44 09/26/16 16:13 Intake & Output 09/25/16 09/26/16 09/27/16 06:59 06:59 06:59 Intake Total 1729 1163 177 Output Total 3 Balance 1726 1163 177 Weight 118.7 kg 121.2 kg General appearance: PRESENT: well-developed, well-nourished Head exam: PRESENT: atraumatic, normocephalic Eye exam: PRESENT: EOMI, PERRLA Mouth exam: PRESENT: moist, neck supple, tongue midline Respiratory exam: PRESENT: clear to auscultation milena, symmetrical Cardiovascular exam: PRESENT: +S1, +S2 Pulses: PRESENT: +2 pedal pulses bilateral GI/Abdominal exam: PRESENT: normal bowel sounds, soft Rectal exam: PRESENT: deferred Musculoskeletal exam: PRESENT: full ROM Neurological exam: PRESENT: alert, awake, oriented to person, oriented to place , oriented to time, CN II-XII grossly intact Psychiatric exam: PRESENT: normal mood Results Laboratory Results: 09/25/16 05:24 09/25/16 05:24 09/22/16 16:38 Blood Blood Culture - Final Staphylococcus Hominis 09/25/16 09/25/16 15:45 15:45 Creatine Kinase 62 CK-MB (CK-2) 1.62 Troponin I < 0.012 Impressions: Chest X-Ray 09/22/16 05:46 IMPRESSION: Borderline cardiomegaly with central pulmonary vascular congestion , similar to prior studies.
[2016-09-26 18:40] VITALS: BP 134/78
[2016-09-27] MEDS ORDERED: PREDNISONE 20 MG TABLET PO SCH (10:00)
[2016-09-27] MEDS ORDERED: LEVOFLOXACIN 500 MG TABLET PO SCH (10:00)
[2016-09-30] MEDS ORDERED: ERGOCALCIFEROL (VITAMIN D2) 50000 UNIT (1.25 MG) CAPSULE PO SCH (10:00)
== END 2016-09-26 19:31 | disposition home or self-care (01) | DRG 202 ==
LOC: ER 04:58 → UNDOADMIN 11:17 → EH 11:17 → 3W 16:48
PROVIDERS: ADMIT Internal Medicine; ATTEND Internal Medicine
DX: J45.901 Unspecified asthma with (acute) exacerbation (principal); J96.01 Acute respiratory failure with hypoxia; K90.9 Intestinal malabsorption, unspecified; Z68.41 Body mass index [BMI] 40.0-44.9, adult; I10 Essential (primary) hypertension; E78.5 Hyperlipidemia, unspecified; I48.0 Paroxysmal atrial fibrillation; E55.9 Vitamin D deficiency, unspecified; M54.9 Dorsalgia, unspecified; E66.01 Morbid (severe) obesity due to excess calories; F32.9 Major depressive disorder, single episode, unspecified; Z96.641 Presence of right artificial hip joint; Z79.51 Long term (current) use of inhaled steroids; Z79.52 Long term (current) use of systemic steroids
CPT/HCPCS: 36415; 71010; 80048; 80053; 80061; 82550; 82553; 82962; 83735; 83880; 84439; 84443; 84481; 84484; 85025; 87040; 87077; 87186; 93005; 93010; 94640; 96361; 96365; 99291; J1650; J1815; J1956; J2930; J3475; J3490; J7030; J7512; J7620

== ENCOUNTER 2016-11-10 14:23 | Emergency (ER) | payer MEDICARE, MEDICAID ==
[2016-11-10] MEDS ORDERED: IPRATROPIUM/ALBUTEROL 0.5-2.5 MG/3 ML AMPUL NEB ONE ×4 (14:29→18:27)
[2016-11-10] MEDS ORDERED: METHYLPREDNISOLONE INJ 125 MG/2 ML SDV IV ONE (14:29)
--- NOTE | 2016-11-10 14:31 | ER Document Report ---
ED Medical Screen (RME) - General Mode of Arrival: Wheelchair Information source: Patient TRAVEL OUTSIDE OF THE [place] IN LAST 30 DAYS: No - HPI Patient complains to provider of: shortness of breath Onset: This morning Associated Symptoms: Other - see notes above <PHILIPP FISHMAN - Last Filed: 11/10/16 16:16> <YORDANRADHA KING - Last Filed: 11/10/16 16:27> - General Chief Complaint: Shortness Of Breath Stated Complaint: DIFFICULTY BREATHING Time Seen by Provider: 11/10/16 14:28 Notes: 65 year old female with history of asthma and COPD presents to the ED complaining of shortness of breath that started earlier today. Patient denies cough or fever. Patient reports that she is sometimes oxygen dependent. I have greeted and performed a rapid initial assessment of this patient. A comprehensive ED assessment and evaluation of the patient, analysis of test results and completion of the medical decision making process will be conducted by additional ED providers. (PHILIPP FISHMAN) - Related Data Allergies/Adverse Reactions: Penicillins Allergy (Intermediate, Verified 11/04/15 10:36) Nausea Past Medical History - General Information source: Patient - Social History Family history: Reviewed & Not Pertinent - Past Medical History Cardiac Medical History: Reports: Hx Hypercholesterolemia, Hx Hypertension Denies: Hx Coronary Artery Disease, Hx Heart Attack Pulmonary Medical History: Reports: Hx Asthma, Hx COPD, Hx Pneumonia Denies: Hx Bronchitis Neurological Medical History: Denies: Hx Cerebrovascular Accident, Hx Seizures Renal/ Medical History: Denies: Hx Peritoneal Dialysis Musculoskeltal Medical History: Denies Hx Arthritis Psychiatric Medical History: Reports: Hx Depression Past Surgical History: Reports: Hx Bowel Surgery, Hx Hysterectomy, Hx Orthopedic Surgery - Right ORIF, Hx Umbilical Hernia - Immunizations Immunizations up to date: Yes Hx Diphtheria, Pertussis, Tetanus Vaccination: Yes <PHILIPP FISHMAN - Last Filed: 11/10/16 16:16> Review of Systems - Review of Systems Constitutional: No symptoms reported. denies: Fever EENT: No symptoms reported Cardiovascular: No symptoms reported Respiratory: See HPI, Short of breath. denies: Cough Gastrointestinal: No symptoms reported Genitourinary: No symptoms reported Female Genitourinary: No symptoms reported Musculoskeletal: No symptoms reported Skin: No symptoms reported Hematologic/Lymphatic: No symptoms reported Neurological/Psychological: No symptoms reported -: Yes All other systems reviewed and negative <PHILIPP FISHMAN - Last Filed: 11/10/16 16:16> Physical Exam - General General appearance: Alert - Respiratory Respiratory status: Respiratory distress Breath sounds: Decreased air movement - bilaterally, Wheezing - Cardiovascular Rhythm: Regular Heart sounds: Normal auscultation <PHILIPP FISHMAN - Last Filed: 11/10/16 16:16> Course - Laboratory Result Diagrams: 11/10/16 14:43 11/10/16 14:43 <PHILIPP FISHMAN - Last Filed: 11/10/16 16:16> - Laboratory Result Diagrams: 11/10/16 14:43 11/10/16 14:43 <RADHA FARR - Last Filed: 11/10/16 16:27> - Re-evaluation Re-evalutation: 11/10/16 16:27 I personally performed the services described in the documentation, reviewed and edited the documentation which was dictated to the scribe in my presence, and it accurately records my words and actions. (RADHA FARR) - Laboratory Laboratory results interpreted by me: 11/10/16 14:43 WBC 12.4 H MCHC 31.7 L RDW 15.4 H Eosinophils % 10.7 H Absolute Eosinophils 1.3 H Scribe Documentation - Scribe Written by Karuna:: Karuna Lui, 11/10/2016 1550 acting as scribe for :: Yordan <PHILIPP FISHMAN - Last Filed: 11/10/16 16:16>
[2016-11-10] MEDS: MAGNESIUM SULFATE/D5W 100 ML IV SCH ×2 (14:39→17:18)
[2016-11-10 15:08] LABS: PROTHROMBIN TIME 11.7 SEC (11.4-15.4)
[2016-11-10 15:09] LABS: VENOUS BLOOD BASE EXCESS -0.4 mmol/L; VENOUS BLOOD HCO3 26.1 mmol/L (20-32); VENOUS BLOOD PCO2 50.7 mmHg (35-63); VENOUS BLOOD PH 7.33 (7.30-7.42)
[2016-11-10 15:13] LABS: ABSOLUTE EOSINOPHILS # (AUTO) 1.3 10^3/uL (0.0-0.6); ABSOLUTE LYMPHOCYTES (AUTO) 2.3 10^3/uL (0.5-4.7); ABSOLUTE MONOCYTES (AUTO) 1.1 10^3/uL (0.1-1.4); ABSOLUTE NEUT (AUTO) 7.6 10^3/uL (1.7-8.2); BASOPHILS % (AUTO) 0.4 % (0-2); EOSINOPHILS % (AUTO) 10.7 % (0-6); HEMATOCRIT 38.7 % (36.0-47.0); HEMOGLOBIN 12.3 g/dL (12.0-15.5); HGB HCT DIFFERENCE -1.8; LYMPHOCYTES % (AUTO) 18.9 % (13-45); MEAN CORPUSCULAR HEMOGLOBIN 29.5 pg (27.0-33.4); MEAN CORPUSCULAR HGB CONC 31.7 g/dL (32.0-36.0); MEAN CORPUSCULAR VOLUME 93 fl (80-97); MONOCYTES % (AUTO) 9.1 % (3-13); RED BLOOD COUNT 4.17 10^6/uL (3.72-5.28); RED CELL DISTRIBUTION WIDTH 15.4 % (11.5-14.0); SEGMENTED NEUTROPHILS % (AUTO) 60.9 % (42-78); WHITE BLOOD COUNT 12.4 10^3/uL (4.0-10.5)
--- NOTE | 2016-11-10 15:16 | RADIOLOGY REPORT (SQ) ---
EXAM DESCRIPTION: CHEST SINGLE VIEW COMPLETED DATE/TIME: 11/10/2016 2:52 pm REASON FOR STUDY: sob COMPARISON: 09/22/2016 EXAM PARAMETERS: NUMBER OF VIEWS: One view. TECHNIQUE: Single frontal radiographic view of the chest acquired. RADIATION DOSE: NA LIMITATIONS: Study is limited somewhat due to the patient's body habitus. FINDINGS: LUNGS AND PLEURA: No opacities, masses or pneumothorax. No pleural effusion. MEDIASTINUM AND HILAR STRUCTURES: No masses. Contour normal. HEART AND VASCULAR STRUCTURES: The configuration of the heart and mediastinal structures is unchanged . Again there is borderline cardiomegaly. There is mild pulmonary vascular congestion. BONES: No acute findings. HARDWARE: None in the chest. OTHER: No other significant finding. IMPRESSION: No significant interval change. No acute findings. Other findings as noted above. TECHNICAL DOCUMENTATION: JOB ID: [id number]
[2016-11-10 15:27] LABS: ALANINE AMINOTRANSFERASE 31 U/L (9-52); ALBUMIN 3.9 g/dL (3.5-5.0); ALKALINE PHOSPHATASE 74 U/L (38-126); ANION GAP 9 (5-19); ASPARTATE AMINO TRANSFERASE 32 U/L (14-36); BILIRUBIN,DIRECT 0.2 mg/dL (0.0-0.4); BILIRUBIN,TOTAL 0.9 mg/dL (0.2-1.3); BLOOD UREA NITROGEN 11 mg/dL (7-20); CALCIUM 9.3 mg/dL (8.4-10.2); CARBON DIOXIDE 26 mmol/L (22-30); CHLORIDE 106 mmol/L (98-107); CREATININE RESULT 0.74 mg/dL (0.52-1.25); GLUCOSE 104 mg/dL (75-110); POTASSIUM 3.7 mmol/L (3.6-5.0); SODIUM 140.8 mmol/L (137-145); TOTAL PROTEIN 6.9 g/dL (6.3-8.2)
[2016-11-10] MEDS ORDERED: ALBUTEROL SULFATE 0.083% NEB 2.5 MG/3 ML AMPUL NEB ONE (16:29)
[2016-11-10 18:44] VITALS: BP 142/78
--- NOTE | 2016-11-10 18:47 | ER Document Report ---
ED Respiratory Problem - General Chief Complaint: Breathing Difficulty Stated Complaint: DIFFICULTY BREATHING Time Seen by Provider: 11/10/16 14:28 Mode of Arrival: Wheelchair Notes: Patient is having difficulty with her breathing and her asthma for the past week or so. She has home nebulizers as well as home oxygen. She has a history of asthma. Does not smoke cigarettes. Has seen Dr. Pal for this condition. He is having a cough, but it is mostly dry and nonproductive. Has not noted a fever. Denies chest pains. No history of heart disease. TRAVEL OUTSIDE OF THE [place] IN LAST 30 DAYS: No - Related Data Allergies/Adverse Reactions: Penicillins Allergy (Intermediate, Verified 11/04/15 10:36) Nausea Past Medical History - General Information source: Patient - Social History Smoking Status: Never Smoker Cigarette use (# per day): No Family History: Reviewed & Not Pertinent Patient has suicidal ideation: No Patient has homicidal ideation: No - Past Medical History Cardiac Medical History: Reports: Hx Hypercholesterolemia, Hx Hypertension Pulmonary Medical History: Reports: Hx Asthma, Hx COPD, Hx Pneumonia Psychiatric Medical History: Reports: Hx Depression Past Surgical History: Reports: Hx Bowel Surgery, Hx Hysterectomy, Hx Orthopedic Surgery - Right ORIF, Hx Umbilical Hernia - Immunizations Immunizations up to date: Yes Hx Diphtheria, Pertussis, Tetanus Vaccination: Yes Hx Pneumococcal Vaccination: 10/20/11 Review of Systems - Review of Systems Notes: REVIEW OF SYSTEMS: CONSTITUTIONAL : Denies fever. EENT: Denies eye, ear, nose or mouth or throat pain or other symptoms. CARDIOVASCULAR: Denies chest pain. RESPIRATORY: See HPI. GASTROINTESTINAL: Denies abdominal pain or nausea, vomiting, or diarrhea. GENITOURINARY: Denies difficulty or painful urinating, urinary frequency, blood in urine. MUSCULOSKELETAL: Denies back or neck pain. Denies joint pain or swelling. SKIN: Denies rash or skin lesions. NEUROLOGICAL: Denies LOC or altered mental status. Denies headache. Denies sensory loss or motor deficits. ALL OTHER SYSTEMS REVIEWED AND NEGATIVE. Physical Exam - Vital signs Vitals: Resp Pulse Ox 24 H 95 11/10/16 15:23 11/10/16 15:23 Interpretation: Normal - Notes Notes: PHYSICAL EXAMINATION: Heart rate about 105. O2 sat low to mid 90s. GENERAL: Patient is in moderate distress, very tight, prolonged expiratory wheezes bilaterally. HEAD: Atraumatic, normocephalic. EYES: Pupils equal round and reactive to light, extraocular movements intact. ENT: oropharynx clear without exudates. Moist mucous membranes. NECK: Normal range of motion, supple. LUNGS: Breath sounds have multiple areas of labored, wheezing, primarily expiratory, along with prolonged expiratory phase. HEART: Regular rate and rhythm without murmurs. Heart rate between 100 - 110. ABDOMEN: Soft, nontender. No guarding or rebound. BACK: No tenderness throughout entire back. EXTREMITIES: Normal range of motion without pain. No edema. Negative Homans. NEUROLOGICAL: Normal speech, normal gait. Normal sensory, motor, and reflex exams. Awake, alert, and oriented x3. Cranial nerves normal. PSYCH: Normal mood, normal affect. SKIN: Warm, dry, no rashes. Course - Re-evaluation Re-evalutation: 11/10/16 18:44 Patient was able to get up and ambulate around the emergency department and returned to her bed with only a transient decrease in her O2 sat to 88% which quickly returned to the mid 90s on room air. He still has a few expiratory wheezes bilaterally. I am giving her one final, fourth nebulizer treatment and going to discharge her on prednisone taper. 11/10/16 19:07 Patient received a total of 4 nebulizer treatments during her stay. She showed significant breathing bilaterally. She was able to ambulate around the department and only dropped her O2 sats slightly and transiently. Giving her a tapering dose of prednisone to follow her Solu-Medrol IV that was given here. - Vital Signs Vital signs: Temp Pulse Resp BP Pulse Ox 19 142/78 H 93 11/10/16 18:16 11/10/16 18:16 11/10/16 18:30 - Laboratory Result Diagrams: 11/10/16 14:43 11/10/16 14:43 Laboratory results interpreted by me: 11/10/16 14:43 WBC 12.4 H MCHC 31.7 L RDW 15.4 H Eosinophils % 10.7 H Absolute Eosinophils 1.3 H - Diagnostic Test Radiology results interpreted by me: 11/10/16 19:11 Chest x-ray is normal. Discharge - Discharge Clinical Impression: Exacerbation of asthma Condition: Stable Disposition: HOME, SELF-CARE Additional Instructions: ASTHMA: You have been diagnosed as having asthma. This is a condition where there is episodic tightness in the bronchial tubes. Allergies, infections, and polluted or cold air may be contributing factors. Emergency treatment of a severe asthma attack may include adrenaline shots , or bronchodilator aerosol. You may feel lightheaded, have a decreased exercise tolerance and a rapid pulse for an hour or two. Rest and get plenty of fluids. Home treatment of asthma requires bronchodilator drugs. These can be administered by injection, inhalation, or by mouth. Antibiotics and corticosteroids may be required for some patients. You should avoid chemical fumes, dusts, pollens, and exercising in very cold or dry air. If you smoke, stop!! If you develop a fever, increased wheezing, chest pain, or severe shortness of breath, you should contact the doctor immediately. STEROID MEDICATION: You have been given an injection of or oral medicine of the cortisone/ steroid class. This medication is used to control inflammation or allergy. Juan Alberto t is usually only given for a short period of time, until the acute process subsides. There are usually no side effects from short-term use of cortisone-like medications. Some persons feel an increased sense of well-being and are not sleepy at bedtime. Long-term use of cortisone medications is best avoided, unless required for a severe condition. If your condition does not remit, or relapses after the course of corticosteroid medication, you should consult your physician. INHALED BRONCHODILATORS: You have received treatment(s) of and/or prescription for an inhaled bronchodilator -- a medication which stimulates the airways in the lung to dilate. This improves the flow of air in asthma, bronchitis, and emphysema. These medicines have some similarity to adrenaline, and can cause similar side effects: shakiness, racing heart, and a sense of nervousness. These side effects decrease with time. Contact your doctor if these side effects are severe. Do not over-use the medicine. Too-frequent use of the inhaler may make it ineffective. Call your doctor if the inhaler is not controlling your symptoms at the prescribed doses. USE OF ACETAMINOPHEN (Tylenol): Acetaminophen may be taken for pain relief or fever control. It's much safer than aspirin, offering a wider range of "safe" dosages. It is safe during . Some brand names are Tylenol, Panadol, Datril, Anacin 3, Tempra, and Liquiprin. Acetaminophen can be repeated every four hours. The following are maximum recommended dosages: WEIGHT Dose Drops Elixir Chewable( 80mg) (LBS.) drprs=droppers tsp=teaspoon >89 pounds or adults 650 mg to 900 mg Acetaminophen can be repeated every four hours. Maximum dose not to exceed 4000 mg a day. These maximum recommended dosages are slightly higher than the dosages written on the product container, but these dosages are very safe and below the toxic dosage for acetaminophen. FOLLOW-UP CARE: If you have been referred to a physician for follow-up care, call the physician s office for an appointment as you were instructed or within the next two days. If you experience worsening or a significant change in your symptoms, notify the physician immediately or return to the Emergency Department at any time for re-evaluation. Prescriptions: Prednisone [Deltasone 10 mg Tablet] 10 mg PO ASDIR PRN #21 tablet PRN Reason: Forms: Return to Work Referrals: OLY PAL MD [Primary Care Provider] - Follow up as needed
--- NOTE | 2016-11-10 22:25 | EKG REPORT ---
SEVERITY:- OTHERWISE NORMAL ECG - SINUS TACHYCARDIA : Confirmed by: Fernanda Zuniga 10-Nov-2016 22:24:48
== END 2016-11-10 18:58 | disposition home or self-care (01) ==
LOC: ER 14:23
DX: J44.9 Chronic obstructive pulmonary disease, unspecified (principal); Z99.81 Dependence on supplemental oxygen; I10 Essential (primary) hypertension; Z87.01 Personal history of pneumonia (recurrent)
CPT/HCPCS: 93005; 94640 ×2; 99285; 96375; 96365; 36415; 87040; 85025; 85610; 80053; 82803; 83605; 71010; 93010; J2930; J3475; A9270 ×2; J7620

== ENCOUNTER 2016-11-26 14:57 | Inpatient (IN) | payer MEDICARE, MEDICAID ==
[2016-11-26] MEDS ORDERED: IPRATROPIUM/ALBUTEROL 0.5-2.5 MG/3 ML AMPUL NEB ONE ×3 (15:09→15:31)
[2016-11-26] MEDS ORDERED: PREDNISONE 20 MG TABLET PO ONE (15:15)
--- NOTE | 2016-11-26 15:23 | ER Document Report ---
ED Medical Screen (RME) - General Chief Complaint: Shortness Of Breath Stated Complaint: DIFFICULTY BREATHING Time Seen by Provider: 11/26/16 15:15 Notes: Patient with a history of asthma who was exposed to dinner today and began wheezing and is having a severe asthma attack at this time. Patient has many allergies and very severe asthma reaction to many allergens. She was just seen here a week or so ago with a bad episode of wheezing, but responded nicely and was able to be discharged home eventually. Her chest has wheezes bilaterally and the upper and lower lobes. She has had a dry cough. Denies fever. TRAVEL OUTSIDE OF THE [place] IN LAST 30 DAYS: No - Related Data Allergies/Adverse Reactions: Penicillins Allergy (Intermediate, Verified 11/26/16 15:02) Nausea Past Medical History - Social History Chew tobacco use (# tins/day): No Frequency of alcohol use: None Drug Abuse: None Family history: Reviewed & Not Pertinent - Past Medical History Cardiac Medical History: Reports: Hx Hypercholesterolemia, Hx Hypertension Denies: Hx Coronary Artery Disease, Hx Heart Attack Pulmonary Medical History: Reports: Hx Asthma, Hx COPD, Hx Pneumonia Denies: Hx Bronchitis Neurological Medical History: Denies: Hx Cerebrovascular Accident, Hx Seizures Renal/ Medical History: Denies: Hx Peritoneal Dialysis Musculoskeltal Medical History: Denies Hx Arthritis Psychiatric Medical History: Reports: Hx Depression Past Surgical History: Reports: Hx Bowel Surgery, Hx Hysterectomy, Hx Orthopedic Surgery - Right ORIF, Hx Umbilical Hernia - Immunizations Immunizations up to date: Yes Hx Diphtheria, Pertussis, Tetanus Vaccination: Yes Physical Exam - Vital signs Vitals: Temp Pulse Resp BP Pulse Ox 98.3 F 118 H 24 H 124/79 93 11/26/16 15:01 11/26/16 15:01 11/26/16 15:01 11/26/16 15:01 11/26/16 15:01 Course - Vital Signs Vital signs: Temp Pulse Resp BP Pulse Ox 98.3 F 118 H 24 H 124/79 93 11/26/16 15:01 11/26/16 15:01 11/26/16 15:12 11/26/16 15:01 11/26/16 15:01
[2016-11-26] MEDS ORDERED: ALBUTEROL SULFATE 0.083% NEB 2.5 MG/3 ML AMPUL NEB ONE ×2 (15:31→17:37)
--- NOTE | 2016-11-26 15:37 | ER Document Report ---
ED Respiratory Problem - General Mode of Arrival: Wheelchair Information source: Patient, Relative - TRAVEL OUTSIDE OF THE [place] IN LAST 30 DAYS: No - HPI Patient complains to provider of: Asthma, Cough, Short of breath Onset: Other - 2 days ago Context: Hx asthma Cough: Nonproductive Associated symptoms: Other - see notes above <PHILIPP FISHMAN - Last Filed: 11/26/16 19:24> <DENIA GEORGES - Last Filed: 11/26/16 19:33> - General Chief Complaint: Shortness Of Breath Stated Complaint: DIFFICULTY BREATHING Time Seen by Provider: 11/26/16 15:15 Notes: 65 year old female with history of asthma, hypertension, and hyperlipidemia presents to the ED complaining of shortness of breath that started 2 days ago. Patient is additionally complaining of chest tightness, but no pain, and non- productive cough. Patient denies fever, vomiting, diarrhea, numbness, tingling, or weakness. Patient reports that she was cleaning the oven prior to onset of symptoms. Patient reports pine allergy and does not take daily allergy medication. Patient has used an inhaler 3-4 times a day for the past 2 days with no relief. Patient was seen in the ED 3 weeks ago for similar complaints. Patient has never been intubated secondary to asthma exacerbation. PCP: Dr. Dupont (PHILIPP FISHMAN) - Related Data Allergies/Adverse Reactions: Penicillins Allergy (Intermediate, Verified 11/26/16 15:02) Nausea Past Medical History - General Information source: Patient, Relative - - Social History Smoking Status: Never Smoker Chew tobacco use (# tins/day): Yes Frequency of alcohol use: None Drug Abuse: None Family History: Reviewed & Not Pertinent Patient has suicidal ideation: No Patient has homicidal ideation: No - Past Medical History Cardiac Medical History: Reports: Hx Hypercholesterolemia, Hx Hypertension Pulmonary Medical History: Reports: Hx Asthma, Hx Pneumonia Renal/ Medical History: Denies: Hx Peritoneal Dialysis Psychiatric Medical History: Reports: Hx Depression Past Surgical History: Reports: Hx Bowel Surgery, Hx Hysterectomy, Hx Orthopedic Surgery - Right ORIF, Hx Umbilical Hernia - Immunizations Immunizations up to date: Yes Hx Diphtheria, Pertussis, Tetanus Vaccination: Yes Hx Pneumococcal Vaccination: 10/20/11 <PHILIPP FISHMAN - Last Filed: 11/26/16 19:24> Review of Systems - Review of Systems Constitutional: No symptoms reported. denies: Fever, Weakness EENT: No symptoms reported Cardiovascular: See HPI, Other - chest tightness. denies: Chest pain Respiratory: See HPI, Cough, Short of breath. denies: Sputum Gastrointestinal: No symptoms reported. denies: Diarrhea, Vomiting Genitourinary: No symptoms reported Female Genitourinary: No symptoms reported Musculoskeletal: See HPI Skin: No symptoms reported Hematologic/Lymphatic: No symptoms reported Neurological/Psychological: No symptoms reported. denies: Numbness, Tingling -: Yes All other systems reviewed and negative <PHILIPP FISHMAN - Last Filed: 11/26/16 19:24> Physical Exam <PHILIPP FISHMAN - Last Filed: 11/26/16 19:24> <DENIA GEORGES - Last Filed: 11/26/16 19:33> - Vital signs Vitals: Temp Pulse Resp BP Pulse Ox 98.3 F 118 H 24 H 124/79 93 11/26/16 15:01 11/26/16 15:01 11/26/16 15:01 11/26/16 15:01 11/26/16 15:01 - Notes Notes: GENERAL: Alert, interacts well. Appears acutely short of breath. HEAD: Normocephalic, atraumatic. EYES: Pupils equal, round, and reactive to light. Extraocular movements intact. ENT: Oral mucosa moist, tongue midline. NECK: Full range of motion. Supple. Trachea midline. LUNGS: No rales, rhonchi, or crackles. Severe diffuse expiratory wheezing that is auditory without a stethoscope. Patient is breathing with pursed lips, but is not tripoding. Appears significantly short of breath. HEART: Regular rhythm, but mildly tachycardic. No murmurs, gallops, or rubs. ABDOMEN: Soft, non-tender. Non-distended. Bowel sounds present in all 4 quadrants. EXTREMITIES: Moves all 4 extremities spontaneously. No edema, radial and dorsalis pedis pulses 2/4 bilaterally. No cyanosis. NEUROLOGICAL: Alert and oriented x3. Normal speech. Biceps and patellar DTRs 2+ bilaterally. PSYCH: Normal affect, normal mood. SKIN: Warm, dry, normal turgor. No rashes or lesions noted. (PHILIPP FISHMAN) Course - Consults Dr. Amaya Time consulted: 17:40 <PHILIPP FISHMAN - Last Filed: 11/26/16 19:24> <DENIA GEORGES - Last Filed: 11/26/16 19:33> - Re-evaluation Re-evalutation: 11/26/16 16:18 Wheezing has decreased, but is still audible without a stethoscope. 11/26/16 16:50 Expiratory wheezing is no longer audible through the door, but is still audible with the stethoscope. Patient continues to breath with pursed lips. (PHILIPP FISHMAN) 11/26/16 17:43 After recheck and 3 breathing treatments, patient has improved, but not significantly, patient will be admitted to Dr. Amaya for exacerbation of asthma. Patient is started on BiPAP 11/26/16 17:44 X-ray reveals no acute process (DENIA GEORGES) - Vital Signs Vital signs: Temp Pulse Resp BP Pulse Ox 98.3 F 118 H 24 H 124/79 93 11/26/16 15:01 11/26/16 15:01 11/26/16 15:12 11/26/16 15:01 11/26/16 15:01 - Consults Dr. Amaya Reason for consultation: 11/26/16 17:40 Patient was discussed with Dr. Amaya who agrees to admit the patient. (PHILIPP FISHMAN) Critical Care Note - Critical Care Note Total time excluding time spent on procedures (mins): 35 <DENIA GEORGES - Last Filed: 11/26/16 19:33> Discharge <PHILPIP FISHMAN - Last Filed: 11/26/16 19:24> - Discharge Admitting Provider: Elo Amaya Unit Admitted: Telemetry <DENIA GEORGES - Last Filed: 11/26/16 19:33> - Discharge Clinical Impression: Acute severe exacerbation of asthma with allergic rhinitis Condition: Fair Disposition: ADMITTED INPATIENT Scribe Attestation: 11/26/16 19:33 I personally performed the services described in the documentation, reviewed and edited the documentation which was dictated to the scribe in my presence, and it accurately records my words and actions. (DENIA GEORGES) Scribe Documentation - Scribe Written by Scribe:: Karuna Lui, 11/26/2016 1557 acting as scribe for :: Charis <PHILIPP FISHMAN - Last Filed: 11/26/16 19:24>
--- NOTE | 2016-11-26 16:20 | RADIOLOGY REPORT (SQ) ---
EXAM DESCRIPTION: CHEST SINGLE VIEW COMPLETED DATE/TIME: 11/26/2016 4:00 pm REASON FOR STUDY: severe wheezing, SOB COMPARISON: 11/10/2016 EXAM PARAMETERS: NUMBER OF VIEWS: One view. TECHNIQUE: Single frontal radiographic view of the chest acquired. RADIATION DOSE: NA LIMITATIONS: Body habitus. FINDINGS: LUNGS AND PLEURA: No opacities, masses or pneumothorax. No pleural effusion. MEDIASTINUM AND HILAR STRUCTURES: No masses. Contour normal. HEART AND VASCULAR STRUCTURES: Heart normal in size on today's examination. Normal vasculature. BONES: No acute findings. HARDWARE: None in the chest. OTHER: No other significant finding. IMPRESSION: NO ACUTE RADIOGRAPHIC FINDING IN THE CHEST. TECHNICAL DOCUMENTATION: JOB ID: [id number]
[2016-11-26] MEDS ORDERED: METHYLPREDNISOLONE INJ 125 MG/2 ML SDV IV ONE (17:37)
[2016-11-26] MEDS ORDERED: ALBUTEROL SULFATE 0.083% NEB 2.5 MG/3 ML AMPUL NEB PRN (17:40)
[2016-11-26] MEDS ORDERED: ONDANSETRON HCL INJ/PF 4 MG/2 ML SDV IV PRN (17:40)
[2016-11-26] MEDS ORDERED: ACETAMINOPHEN 325 MG TABLET PO PRN (17:40)
[2016-11-26] MEDS ORDERED: HYDRALAZINE HCL INJ/PF 20 MG/1 ML SDV IV PRN (18:16)
--- NOTE | 2016-11-26 18:25 | PDOC H&P ---
History of Present Illness Admission Date/PCP: 11/26/16 18:08 Dr. Dupont Patient complains of: Shortness of breath History of Present Illness: MEL SHAY is a 65 year old female with past medical history of asthma, hypertension presents with several days increasing shortness of breath. No fevers. No chest pain. Patient has had frequent admissions for asthma. She has been seen by pulmonary medicine in the past Dr. Ontiveros. She apparently has allergy to pine pollen and her asthma has been worse since moving to this area from [place]. Medications listed below have not been verified. Past Medical History Cardiac Medical History: Reports: Hyperlipidema, Hypertension Denies: Coronary Artery Disease, Myocardial Infarction Pulmonary Medical History: Reports: Asthma, Chronic Obstructive Pulmonary Disease (COPD), Pneumonia Denies: Bronchitis Neurological Medical History: Denies: Seizures Musculoskeltal Medical History: Denies: Arthritis Psychiatric Medical History: Reports: Depression Hematology: Denies: Anemia Past Surgical History Past Surgical History: Reports: Hysterectomy, Orthopedic Surgery - Right ORIF Social History Information Source: Patient Lives with: Family Smoking Status: Never Smoker Frequency of Alcohol Use: None Hx Recreational Drug Use: No Drugs: None Hx Prescription Drug Abuse: No - Advance Directive Resuscitation Status: Full Code Family History Family History: Reviewed & Not Pertinent Parental Family History Reviewed: Yes Children Family History Reviewed: Yes Sibling(s) Family History Reviewed.: Yes Medication/Allergy Home Medications: Albuterol Sulfate [Ventolin HFA MDI 18 GM] 2 puff IH Q4HP PRN 09/22/16 Citalopram Hydrobromide [Celexa 20 mg Tablet] 20 mg PO DAILY 09/22/16 Ergocalciferol (Vitamin D2) [Drisdol 50,000 unit (1.25MG) Capsule] 1 cap PO FR@ 1000 09/22/16 Ipratropium/Albuterol Sulfate [Duoneb 3 ml Ampul] 3 ml NEB RTQID 09/22/16 Lisinopril/Hydrochlorothiazide [Lisinopril-Hctz 20-12.5 mg Tab] 1 each PO DAILY 09/22/16 Loratadine [Claritin 10 mg Tablet] 10 mg PO DAILY 09/22/16 Lovastatin (Mevacor) 20 Mg 20 mg PO QHS 09/22/16 Nystatin 500,000 unit PO QID 09/22/16 Omeprazole 40 mg PO QAM 09/22/16 Oxycodone HCl/Acetaminophen [Percocet 5-325 mg Tablet] 1 tab PO TIDP PRN Potassium Chloride 20 meq PO DAILY 09/22/16 Doxycycline Hyclate 100 mg PO BID #14 tablet 09/26/16 Prednisone [Deltasone 20 mg Tablet] 20 mg PO ASDIR #15 tablet 09/26/16 Prednisone [Deltasone 10 mg Tablet] 10 mg PO ASDIR PRN #21 tablet 11/10/16 Allergies/Adverse Reactions: Penicillins Allergy (Intermediate, Verified 11/26/16 15:02) Nausea Review of Systems Constitutional: ABSENT: chills, fever(s), headache(s), weight gain, weight loss Eyes: ABSENT: visual disturbances Ears: ABSENT: hearing changes Cardiovascular: PRESENT: dyspnea on exertion. ABSENT: chest pain, edema, orthropnea, palpitations Respiratory: PRESENT: dyspnea. ABSENT: cough, hemoptysis Gastrointestinal: ABSENT: abdominal pain, constipation, diarrhea, hematemesis, hematochezia, nausea, vomiting Genitourinary: ABSENT: dysuria, hematuria Musculoskeletal: ABSENT: joint swelling Integumentary: ABSENT: rash, wounds Neurological: ABSENT: abnormal gait, abnormal speech, confusion, dizziness, focal weakness, syncope Psychiatric: ABSENT: anxiety, depression, homidical ideation, suicidal ideation Endocrine: ABSENT: cold intolerance, heat intolerance, polydipsia, polyuria Hematologic/Lymphatic: ABSENT: easy bleeding, easy bruising Physical Exam Vital Signs: Temp Pulse Resp BP Pulse Ox 98.3 F 118 H 24 H 124/79 93 11/26/16 15:01 11/26/16 15:01 11/26/16 15:12 11/26/16 15:01 11/26/16 15:01 PHYSICAL EXAM: GENERAL: Appears well, no acute distress HEENT: Normocephalic, no scleral icterus, conjunctiva clear, EOEM intact, PERRLA , moist mucous membranes NECK: trachea midline, no thyromegally RESPIRATORY: Mildly tachypneic, inspiratory/expiratory wheezes, poor air excursion CARDIAC: Regular rate and rhythm, no murmur/mirella/rub ABDOMEN: Soft, no distension, no tenderness, no guarding, normal bowel sounds, negative Aguillon sign RECTAL: deferred : deferred EXTREMITIES: Trace bilateral lower extremity edema MUSCULOSKELETAL: No joint swelling or deformity VASCULAR: normal peripheral pulses NEUROLOGIC: Alert, oriented to person/place/time, normal speech, cranial nerves grossly intact, 5/5 strength in all extremities, tactile sensation intact in all extremities SKIN: No rash, no wounds, no worrisome skin lesions PSYCHIATRIC: Normal mood, normal affect Results Impressions: Chest X-Ray 11/26/16 15:31 IMPRESSION: NO ACUTE RADIOGRAPHIC FINDING IN THE CHEST. Assessment & Plan - Diagnosis (1) Acute severe exacerbation of asthma with allergic rhinitis Is this a current diagnosis for this admission?: YesPlan: Admit patient to hospital. IV Solu-Medrol. Scheduled duo nebs. As needed albuterol. (2) Hyperlipidemia Is this a current diagnosis for this admission?: Yes (3) Hypertension Is this a current diagnosis for this admission?: YesPlan: As needed IV hydralazine. Verify home medications and resume. - Time Time Spent: 50 to 70 Minutes
[2016-11-26 21:23] LABS: ABSOLUTE EOSINOPHILS # (AUTO) 0.1 10^3/uL (0.0-0.6); ABSOLUTE LYMPHOCYTES (AUTO) 0.8 10^3/uL (0.5-4.7); ABSOLUTE MONOCYTES (AUTO) 0.3 10^3/uL (0.1-1.4); ABSOLUTE NEUT (AUTO) 12.2 10^3/uL (1.7-8.2); BASOPHILS % (AUTO) 0.2 % (0-2); EOSINOPHILS % (AUTO) 1.1 % (0-6); HEMATOCRIT 37.8 % (36.0-47.0); HGB HCT DIFFERENCE -1.8; LYMPHOCYTES % (AUTO) 6.1 % (13-45); MEAN CORPUSCULAR HEMOGLOBIN 29.5 pg (27.0-33.4); MEAN CORPUSCULAR HGB CONC 31.7 g/dL (32.0-36.0); MEAN CORPUSCULAR VOLUME 93 fl (80-97); MONOCYTES % (AUTO) 2.1 % (3-13); RED BLOOD COUNT 4.06 10^6/uL (3.72-5.28); SEGMENTED NEUTROPHILS % (AUTO) 90.5 % (42-78); WHITE BLOOD COUNT 13.5 10^3/uL (4.0-10.5)
[2016-11-26] MEDS: IPRATROPIUM/ALBUTEROL 0.5-2.5 MG/3 ML AMPUL NEB SCH (21:26)
[2016-11-26 21:43] LABS: ALANINE AMINOTRANSFERASE 28 U/L (9-52); ALBUMIN 3.9 g/dL (3.5-5.0); ALKALINE PHOSPHATASE 83 U/L (38-126); ANION GAP 15 (5-19); ASPARTATE AMINO TRANSFERASE 22 U/L (14-36); BILIRUBIN,DIRECT 0.2 mg/dL (0.0-0.4); BILIRUBIN,TOTAL 1.1 mg/dL (0.2-1.3); BLOOD UREA NITROGEN 22 mg/dL (7-20); CALCIUM 8.8 mg/dL (8.4-10.2); CARBON DIOXIDE 22 mmol/L (22-30); CHLORIDE 106 mmol/L (98-107); CREATININE RESULT 0.91 mg/dL (0.52-1.25); GLUCOSE 164 mg/dL (75-110); POTASSIUM 3.2 mmol/L (3.6-5.0); SODIUM 142.6 mmol/L (137-145); TOTAL PROTEIN 6.5 g/dL (6.3-8.2)
[2016-11-26] MEDS: METHYLPREDNISOLONE INJ 40 MG/1 ML SDV IV SCH (21:57)
[2016-11-26] MEDS ORDERED: METHYLPREDNISOLONE INJ 40 MG/1 ML SDV IV SCH (22:00)
[2016-11-27] MEDS: METHYLPREDNISOLONE INJ 40 MG/1 ML SDV IV SCH ×3 (05:32→21:11)
[2016-11-27] MEDS: IPRATROPIUM/ALBUTEROL 0.5-2.5 MG/3 ML AMPUL NEB SCH ×3 (08:39→20:07)
[2016-11-27] MEDS: ENOXAPARIN SODIUM INJ 40 MG/0.4 ML DISP.SYRIN SUBCUT SCH (11:00)
[2016-11-27] MEDS ORDERED: OXYCODONE-ACETAMINOPHEN 5-325 MG TABLET PO PRN (17:18)
--- NOTE | 2016-11-27 17:19 | PDOC PROGRESS REPORT ---
Subjective Progress Note for:: 11/27/16 Subjective:: Patient's shortness of breath is much improved. She denies fevers, chills, headache, chest pain, abdominal pain, nausea, vomiting. Physical Exam Vital Signs: Temp Pulse Resp BP Pulse Ox 98.1 F 124 H 23 H 140/92 H 95 11/27/16 15:18 11/27/16 15:18 11/27/16 15:18 11/27/16 15:18 11/27/16 15:18 Intake & Output 11/26/16 11/27/16 11/28/16 06:59 06:59 06:59 Intake Total 1000 Output Total 300 Balance 700 Weight 114.7 kg GENERAL: No acute distress HEENT: Conjunctiva clear, nonicteric, moist mucous membranes, no JVD, midline trachea RESPIRATORY: Bilateral inspiratory and expiratory wheezes, good air excursion CARDIAC: Regular rate and rhythm, no murmurs/gallops/rubs ABDOMEN: Soft, nondistended, nontender, positive bowel sounds, no rebound, no guarding EXTREMETIES: No edema, cyanosis, clubbing NEUROLOGIC: Alert, oriented to person/place/time, CN's grossly intact, no focal deficits SKIN: No rash, wounds PSYCH: Normal mood, normal affect Results Laboratory Results: 11/26/16 19:04 11/26/16 19:15 11/26/16 11/26/16 11/26/16 19:04 19:04 19:15 WBC 13.5 H RBC 4.06 Hgb 12.0 Hct 37.8 MCV 93 MCH 29.5 MCHC 31.7 L RDW 15.0 H Plt Count 178 Seg Neutrophils % 90.5 H Lymphocytes % 6.1 L Monocytes % 2.1 L Eosinophils % 1.1 Basophils % 0.2 Absolute Neutrophils 12.2 H Absolute Lymphocytes 0.8 Absolute Monocytes 0.3 Absolute Eosinophils 0.1 Absolute Basophils 0.0 Sodium 142.6 Cancelled Potassium 3.2 L Cancelled Chloride 106 Cancelled Carbon Dioxide 22 Cancelled Anion Gap 15 Cancelled BUN 22 H Cancelled Creatinine 0.91 Cancelled Est GFR ( Amer) > 60 Cancelled Est GFR (Non-Af Amer) > 60 Cancelled Glucose 164 H Cancelled Calcium 8.8 Cancelled Total Bilirubin 1.1 Cancelled AST 22 Cancelled ALT 28 Cancelled Alkaline Phosphatase 83 Cancelled Total Protein 6.5 Cancelled Albumin 3.9 Cancelled Impressions: Chest X-Ray 11/26/16 15:31 IMPRESSION: NO ACUTE RADIOGRAPHIC FINDING IN THE CHEST. Assessment & Plan - Diagnosis (1) Acute severe exacerbation of asthma with allergic rhinitis Is this a current diagnosis for this admission?: YesPlan: Continue IV Solu-Medrol. Scheduled duo nebs. As needed albuterol. I would like to refer patient to [facility] to see pulmonary and allergy immunology for uncontrolled asthma. I think she would benefit from allergy testing. (2) Hyperlipidemia Is this a current diagnosis for this admission?: Yes (3) Hypertension Is this a current diagnosis for this admission?: YesPlan: As needed IV hydralazine. Home medications. - Time Time Spent with patient: 25-34 minutes Anticipated discharge: Home Within: within 48 hours
[2016-11-27] MEDS: ATORVASTATIN CALCIUM 10 MG TABLET PO SCH (21:11)
[2016-11-28] MEDS: METHYLPREDNISOLONE INJ 40 MG/1 ML SDV IV SCH ×2 (05:38→13:57)
[2016-11-28] MEDS: IPRATROPIUM/ALBUTEROL 0.5-2.5 MG/3 ML AMPUL NEB SCH ×3 (08:10→19:53)
[2016-11-28] MEDS: LANSOPRAZOLE 30 MG TAB.RAP.DR PO SCH (08:26)
[2016-11-28] MEDS: ENOXAPARIN SODIUM INJ 40 MG/0.4 ML DISP.SYRIN SUBCUT SCH (09:49)
--- NOTE | 2016-11-28 09:51 | PDOC PROGRESS REPORT ---
Subjective Progress Note for:: 11/28/16 Subjective:: Patient has continued shortness of breath with minimal exertion. She denies fevers, chills, headache, chest pain, abdominal pain, nausea, vomiting. Physical Exam Vital Signs: Temp Pulse Resp BP Pulse Ox 98.0 F 91 16 145/74 H 96 11/28/16 08:00 11/28/16 08:10 11/28/16 08:10 11/28/16 08:00 11/28/16 08:10 Intake & Output 11/27/16 11/28/16 11/29/16 06:59 06:59 06:59 Intake Total 1560 Output Total 300 Balance 1260 Weight 114.7 kg 114.7 kg GENERAL: No acute distress HEENT: Conjunctiva clear, nonicteric, moist mucous membranes, no JVD, midline trachea RESPIRATORY: Bilateral inspiratory and expiratory wheezes, good air excursion CARDIAC: Regular rate and rhythm, no murmurs/gallops/rubs ABDOMEN: Soft, nondistended, nontender, positive bowel sounds, no rebound, no guarding EXTREMETIES: No edema, cyanosis, clubbing NEUROLOGIC: Alert, oriented to person/place/time, CN's grossly intact, no focal deficits SKIN: No rash, wounds PSYCH: Normal mood, normal affect Results Laboratory Results: 11/26/16 19:04 11/26/16 19:15 Impressions: Chest X-Ray 11/26/16 15:31 IMPRESSION: NO ACUTE RADIOGRAPHIC FINDING IN THE CHEST. Assessment & Plan - Diagnosis (1) Acute severe exacerbation of asthma with allergic rhinitis Is this a current diagnosis for this admission?: YesPlan: Continue IV Solu-Medrol. Scheduled duo nebs. As needed albuterol. I would like to refer patient to [facility] to see pulmonary and allergy immunology for uncontrolled asthma. I think she would benefit from allergy testing. Patient is regularly followed by Dr. Dupont her primary care. He can assume care if patient remains in the hospital after 11/29/2016. (2) Hyperlipidemia Is this a current diagnosis for this admission?: Yes (3) Hypertension Is this a current diagnosis for this admission?: YesPlan: As needed IV hydralazine. Home medications. - Time Time Spent with patient: 25-34 minutes Anticipated discharge: Home Within: within 48 hours
[2016-11-28] MEDS: HYDROCHLOROTHIAZIDE 25 MG TABLET PO SCH (09:52)
[2016-11-28] MEDS: POTASSIUM CHLORIDE 10 MEQ TABLET.SA PO SCH (09:52)
[2016-11-28] MEDS: CITALOPRAM HYDROBROMIDE 20 MG TABLET PO SCH (09:52)
[2016-11-28] MEDS: LISINOPRIL 10 MG TABLET PO SCH (09:53)
[2016-11-28] MEDS: LORATADINE 10 MG TABLET PO SCH (09:55)
[2016-11-28] MEDS ORDERED: OXYCODONE-ACETAMINOPHEN 5-325 MG TABLET PO PRN (15:03)
[2016-11-28] MEDS ORDERED: ONDANSETRON HCL INJ/PF 4 MG/2 ML SDV IV PRN (15:07)
[2016-11-28] MEDS: ATORVASTATIN CALCIUM 10 MG TABLET PO SCH (21:44)
[2016-11-28] MEDS: METHYLPREDNISOLONE INJ 125 MG/2 ML SDV IV SCH (21:44)
[2016-11-29] MEDS: METHYLPREDNISOLONE INJ 125 MG/2 ML SDV IV SCH ×3 (05:26→22:28)
[2016-11-29] MEDS: LANSOPRAZOLE 30 MG TAB.RAP.DR PO SCH (07:40)
[2016-11-29] MEDS ORDERED: OXYCODONE-ACETAMINOPHEN 5-325 MG TABLET PO PRN (07:48)
[2016-11-29] MEDS ORDERED: FUROSEMIDE INJ/PF 20 MG/2 ML SDV IV ONE (08:30)
[2016-11-29] MEDS: IPRATROPIUM/ALBUTEROL 0.5-2.5 MG/3 ML AMPUL NEB SCH ×3 (09:16→20:06)
[2016-11-29] MEDS: ENOXAPARIN SODIUM INJ 40 MG/0.4 ML DISP.SYRIN SUBCUT SCH (09:20)
[2016-11-29] MEDS: HYDROCHLOROTHIAZIDE 25 MG TABLET PO SCH (09:32)
[2016-11-29] MEDS: LORATADINE 10 MG TABLET PO SCH (09:32)
[2016-11-29] MEDS: CITALOPRAM HYDROBROMIDE 20 MG TABLET PO SCH (09:32)
[2016-11-29] MEDS: POTASSIUM CHLORIDE 10 MEQ TABLET.SA PO SCH ×2 (09:33→18:50)
[2016-11-29] MEDS: LISINOPRIL 10 MG TABLET PO SCH (09:33)
--- NOTE | 2016-11-29 09:35 | RADIOLOGY REPORT (SQ) ---
EXAM DESCRIPTION: CHEST PA/LAT COMPLETED DATE/TIME: 11/29/2016 9:13 am REASON FOR STUDY: shortness of breath COMPARISON: 11/26/2016. 11/10/2016. TECHNIQUE: Frontal and lateral radiographic views of the chest acquired. NUMBER OF VIEWS: Two view. LIMITATIONS: None. FINDINGS: LUNGS AND PLEURA: Probable subsegmental volume loss in the lingula superimposed on promine nt epicardial fat. No other areas of abnormal lung opacity. No pneumothorax or suggestion of pleura l effusion. MEDIASTINUM AND HILAR STRUCTURES: Stable contours. HEART AND VASCULAR STRUCTURES: Heart normal size. No evidence for failure. BONES: No acute findings. HARDWARE: None in the chest. OTHER: No other significant finding. IMPRESSION: Suspect mild volume loss in the left upper lobe. TECHNICAL DOCUMENTATION: JOB ID: [id number] [employer]- All Rights Reserved
[2016-11-29] MEDS ORDERED: DOCUSATE SODIUM 100 MG CAPSULE PO SCH (10:00)
[2016-11-29 12:42] LABS: ANION GAP 12 (5-19); BLOOD UREA NITROGEN 25 mg/dL (7-20); CALCIUM 9.1 mg/dL (8.4-10.2); CARBON DIOXIDE 25 mmol/L (22-30); CHLORIDE 102 mmol/L (98-107); CREATININE RESULT 0.71 mg/dL (0.52-1.25); GLUCOSE 299 mg/dL (75-110); SODIUM 138.9 mmol/L (137-145)
[2016-11-29] MEDS ORDERED: POTASSIUM CHLORIDE 10 MEQ TABLET.SA PO ONE (16:16)
[2016-11-29] MEDS ORDERED: GLUCAGON,HUMAN RECOMB 1 MG INJ IM PRN (16:18)
[2016-11-29] MEDS ORDERED: DEXTROSE 50%-WATER 25 GM/50 ML DISP.SYRIN IV PRN ×2 (16:18)
[2016-11-29] MEDS ORDERED: DEXTROSE 40% GEL 15 GM TUBE PO PRN ×2 (16:18)
--- NOTE | 2016-11-29 16:34 | RADIOLOGY REPORT (SQ) ---
EXAM DESCRIPTION: CTA CHEST COMPLETED DATE/TIME: 11/29/2016 4:06 pm REASON FOR STUDY: persistant sob COMPARISON: 03/22/2016 TECHNIQUE: CT scan of the chest performed using helical scanning technique with dynamic intravenous contrast injection. Images reviewed with lung, soft tissue and bone windows. Reconstructed coronal and sagittal MPR images reviewed. Additional 3 dimensional post-processing performed to develop Maximal Intensity Projection images (CO P). All images stored on PACS. All CT scanners at this facility use dose modulation, iterative reconstruction, and/or weight based d osing when appropriate to reduce radiation dose to as low as reasonably achievable (ALARA). [facility]: Dose Right [facility]: CareDose [facility]: Dose Right [facility]: Teradose 4D [facility]: Smart Keelr CONTRAST TYPE AND DOSE: contrast/concentration: Isovue 370.00 mg/ml; Total Contrast Delivered: 98.0 ml; Total Saline Delivered: 189.9 ml RENAL FUNCTION: BUN 22 creatinine 0.91 RADIATION DOSE: Up-to-date CT equipment and radiation dose reduction techniques were employed. CTDIv ol: 28.1 - 45.5 mGy. DLP: 3431 mGy-cm. . LIMITATIONS: None. FINDINGS: LUNGS AND PLEURA: Scarring/total of cul atelectasis noted along fissure on the left. No f ocal infiltrates. No worrisome pulmonary lesions. No pneumothorax. No significant pleural effusion . Coronary artery calcifications. AORTA AND GREAT VESSELS: No aneurysm or dissection. HEART: No pericardial effusion. PULMONARY ARTERIES: No emboli visualized in the main pulmonary arteries or the segmental branches. HILAR AND MEDIASTINAL STRUCTURES: No identified masses or abnormal nodes. HARDWARE: None in the chest. UPPER ABDOMEN: No significant findings. Bilateral renal cysts. Limited exam. THYROID AND OTHER SOFT TISSUES: No masses. No adenopathy. BONES: Multilevel degenerative changes the spine. No acute osseous abnormality. 3D MIPS: Confirm above findings. OTHER: No other significant finding. IMPRESSION: No acute pulmonary embolus identified. No focal infiltrates identified. No significant abnormality identified. TECHNICAL DOCUMENTATION: JOB ID: [id number] Quality ID # [id number]: Final reports with documentation of one or more dose reduction techniques (e.g., Au tomated exposure control, adjustment of the mA and/or kV according to patient size, use of iterative reconstruction technique) 2010 [employer]- All Rights Reserved
--- NOTE | 2016-11-29 16:35 | PDOC PROGRESS REPORT ---
Subjective Progress Note for:: 11/29/16 Subjective:: Reports that she still having difficulty breathing. Patient reports it is worse with ambulation. Patient denies orthopnea/PND. She denies lower extremity swelling. Patient reports that she was using easy off in her oven prior to admission. Denies chest pain, fever, chills, nausea, vomiting, diarrhea, edema. Physical Exam Vital Signs: Temp Pulse Resp BP Pulse Ox 97.5 F 85 22 H 158/86 H 98 11/29/16 07:19 11/29/16 07:19 11/29/16 07:19 11/29/16 07:19 11/29/16 07:19 Intake & Output 11/28/16 11/29/16 11/30/16 06:59 06:59 06:59 Intake Total 1560 1945 Output Total 300 Balance 1260 1945 Weight 114.7 kg 116.9 kg Exam: GENERAL: No acute distress HEENT: Conjunctiva clear, nonicteric, moist mucous membranes, no JVD, midline trachea RESPIRATORY: Tachypnea, Bilateral inspiratory and expiratory wheezes, good air excursion CARDIAC: Regular rate and rhythm, no murmurs/gallops/rubs ABDOMEN: Soft, nondistended, nontender, positive bowel sounds, no rebound, no guarding EXTREMETIES: No cyanosis, clubbing; 2+BLE edema NEUROLOGIC: Alert, oriented to person/place/time, CN's grossly intact, no focal deficits SKIN: No rash, wounds PSYCH: Normal mood, normal affect Results Laboratory Results: 11/26/16 19:04 11/26/16 19:15 Impressions: Chest X-Ray 11/26/16 15:31 IMPRESSION: NO ACUTE RADIOGRAPHIC FINDING IN THE CHEST. Assessment & Plan - Diagnosis (1) Acute severe exacerbation of asthma with allergic rhinitis Is this a current diagnosis for this admission?: YesPlan: Patient Solu-Medrol 125 mg IV q. 8. Patient has had possible pneumonia in her left lower lobe for the last 3 admissions. Patient has not had a CT of the chest since developing chronic recurring pneumonia. Obtain CT chest with contrast. Add singulair and flonase. Patient will be covered by Dr. Dupont beginning 11/30/2016. (2) Hyperlipidemia Qualifiers: Hyperlipidemia type: unspecified Qualified Code(s): E78.5 - Hyperlipidemia, unspecified Is this a current diagnosis for this admission?: YesPlan: Statin (3) Hypertension Is this a current diagnosis for this admission?: YesPlan: Control, but could use improvement. Add Lasix IV twice daily, suspect patient has an element of chronic diastolic heart failure and will change patient's diet to being cardiac. (4) Hypokalemia Is this a current diagnosis for this admission?: YesPlan: Replete and recheck. Check magnesium (5) Osteoarthritis Qualifiers: Osteoarthritis location: unspecified site Osteoarthritis type: unspecified Qualified Code(s): M19.90 - Unspecified osteoarthritis, unspecified site Is this a current diagnosis for this admission?: Yes (6) Vitamin D deficiency Is this a current diagnosis for this admission?: YesPlan: Continue vitamin D oral (7) Obesity Qualifiers: Obesity type: due to excess calories Obesity severity: morbid Qualified Code(s): E66.01 - Morbid (severe) obesity due to excess calories Is this a current diagnosis for this admission?: Yes - Time Time Spent with patient: 25-34 minutes Medications reviewed and adjusted accordingly: Yes - Inpatient Certification Based on my medical assessment, after consideration of the patient's comorbidities, presenting symptoms, or acuity I expect that the services needed warrant INPATIENT care.: Yes I certify that my determination is in accordance with my understanding of Medicare's requirements for reasonable and necessary INPATIENT services [42 CFR 412.3e].: Yes Medical Necessity: Need for Nebulizer Therapy and Monitoring of Response Post Hospital Care: D/C Computer [employer] Integrator Documentation
[2016-11-29] MEDS: FUROSEMIDE INJ/PF 20 MG/2 ML SDV IV SCH (17:14)
[2016-11-29 21:50] LABS: ANION GAP 11 (5-19); BLOOD UREA NITROGEN 27 mg/dL (7-20); CALCIUM 9.3 mg/dL (8.4-10.2); CARBON DIOXIDE 28 mmol/L (22-30); CHLORIDE 97 mmol/L (98-107); CREATININE RESULT 0.85 mg/dL (0.52-1.25); GLUCOSE 238 mg/dL (75-110); SODIUM 135.8 mmol/L (137-145)
[2016-11-29 22:00] LABS: POTASSIUM 2.9 mmol/L (3.6-5.0)
[2016-11-29] MEDS: MONTELUKAST SODIUM 10 MG TABLET PO SCH (22:28)
[2016-11-29] MEDS: ATORVASTATIN CALCIUM 10 MG TABLET PO SCH (22:28)
[2016-11-29] MEDS ORDERED: FLUTICASONE NASAL SPRAY 50 MCG/SPRY 120 SPRAY/16 GM ONE (22:45)
[2016-11-29] MEDS: POTASSIUM CHLORIDE 20 MEQ/15 ML UDCUP PO SCH (23:24)
[2016-11-29] MEDS: FLUTICASONE NASAL SPRAY 50 MCG/SPRY 120 SPRAY/16 GM NASL SCH (23:26)
[2016-11-30] MEDS: INSULIN LISPRO 100 UNIT/ML 3 ML VIAL SUBCUT PRN ×3 (00:04→22:39)
[2016-11-30] MEDS: POTASSIUM CHLORIDE 20 MEQ/15 ML UDCUP PO SCH ×3 (02:29→05:32)
[2016-11-30] MEDS: METHYLPREDNISOLONE INJ 125 MG/2 ML SDV IV SCH ×3 (05:31→22:05)
[2016-11-30 06:32] LABS: ANION GAP 11 (5-19); BLOOD UREA NITROGEN 28 mg/dL (7-20); CALCIUM 9.3 mg/dL (8.4-10.2); CARBON DIOXIDE 29 mmol/L (22-30); CHLORIDE 101 mmol/L (98-107); GLUCOSE 205 mg/dL (75-110); SODIUM 140.6 mmol/L (137-145)
[2016-11-30 06:48] LABS: POTASSIUM 3.9 mmol/L (3.6-5.0)
[2016-11-30 07:02] LABS: HEMOGLOBIN 11.5 g/dL (12.0-15.5); HGB HCT DIFFERENCE -0.5; MEAN CORPUSCULAR HEMOGLOBIN 29.7 pg (27.0-33.4); MEAN CORPUSCULAR HGB CONC 32.7 g/dL (32.0-36.0); MEAN CORPUSCULAR VOLUME 91 fl (80-97); RED BLOOD COUNT 3.86 10^6/uL (3.72-5.28); RED CELL DISTRIBUTION WIDTH 14.9 % (11.5-14.0); WHITE BLOOD COUNT 13.5 10^3/uL (4.0-10.5)
[2016-11-30 07:16] LABS: BAND NEUTROPHILS % (MANUAL) 4 % (3-5); BASOPHILS % (MANUAL) 0 % (0-2); EOSINOPHILS % (MANUAL) 0 % (0-6); LYMPHOCYTES % (MANUAL) 9 % (13-45); TOTAL CELLS COUNTED 100
[2016-11-30 07:19] LABS: POLYCHROMASIA SLIGHT
[2016-11-30 07:20] LABS: ANISOCYTOSIS SLIGHT; BURR CELLS SLIGHT; TEAR DROP CELLS SLIGHT
[2016-11-30] MEDS: IPRATROPIUM/ALBUTEROL 0.5-2.5 MG/3 ML AMPUL NEB SCH ×3 (07:57→19:54)
[2016-11-30] MEDS: LANSOPRAZOLE 30 MG TAB.RAP.DR PO SCH (08:20)
[2016-11-30] MEDS: ENOXAPARIN SODIUM INJ 40 MG/0.4 ML DISP.SYRIN SUBCUT SCH (09:02)
[2016-11-30] MEDS: FLUTICASONE NASAL SPRAY 50 MCG/SPRY 120 SPRAY/16 GM NASL SCH ×2 (09:05→22:06)
[2016-11-30] MEDS: FUROSEMIDE INJ/PF 20 MG/2 ML SDV IV SCH ×2 (09:06→17:07)
[2016-11-30] MEDS: POTASSIUM CHLORIDE 10 MEQ TABLET.SA PO SCH ×2 (09:06→17:07)
[2016-11-30] MEDS: CITALOPRAM HYDROBROMIDE 20 MG TABLET PO SCH (09:06)
[2016-11-30] MEDS: LORATADINE 10 MG TABLET PO SCH (09:06)
[2016-11-30] MEDS: HYDROCHLOROTHIAZIDE 25 MG TABLET PO SCH (09:07)
[2016-11-30] MEDS: LISINOPRIL 10 MG TABLET PO SCH (09:07)
[2016-11-30] MEDS ORDERED: ERGOCALCIFEROL (VITAMIN D2) 50000 UNIT (1.25 MG) CAPSULE PO SCH (10:00)
--- NOTE | 2016-11-30 17:47 | XCELERA REPORT ---
[address] [address] Transthoracic Echocardiogram Report Name: MEL SHAY Age: 65 yrs Gender: Female : 1950 Patient Status: Inpatient Patient Location: 5\S\536\S\A Study Date: 11/30/2016 09:57 AM Height: 68 in Weight: 257 lb BSA: 2.3 m2 Procedure: A two-dimensional transthoracic echocardiogram with color flow and Doppler was performed. The study was technically difficult with many images being suboptimal in quality. Reason For Study: ?pulm htn, chronic chf History: ?pulm htn, chronic chf. Ordering Physician: PAT CAMP Performed By: Fanny Iraheta Interpretation Summary ?pulm htn, chronic chf The left ventricle is normal in size. There is mild asymmetric left ventricular hypertrophy. No 'MONSTER' or LVOT obstruction , hence no IHSS ( HOCM ). LV EF is 65% Left ventricular systolic function is normal. Doppler measurements suggest impaired left ventricular relaxation, which is associated with grade I/IV or mild diastolic dysfunction The left ventricular wall motion is normal. There is no thrombus. The left atrial size is normal. There is no evidence of mitral valve prolapse. There is no mitral valve stenosis. There is no mitral regurgitation noted. There is no aortic valve stenosis There is no LVOT obstruction. No aortic regurgitation is present. There is no tricuspid stenosis. There is a mild amount of tricuspid regurgitation There is mild pulmonary hypertension by echo RVSP is 40 mm of Hg , with RA mean of 10. There is no pericardial effusion. MMode/2D Measurements \T\ Calculations RVDd: 2.9 cm LVIDd: 4.0 cm FS: 37.6 % Ao root diam: 2.6 cm IVSd: 1.3 cm LVIDs: 2.5 cm EDV(Teich): 69.7 ml LVPWd: 1.2 cm ESV(Teich): 22.1 ml Ao root area: 5.4 cm2 EF(Teich): 68.2 % LA dimension: 2.8 cm LVOT diam: 2.0 cm LVOT area: 3.2 cm2 Doppler Measurements \T\ Calculations MV E max brenda: MV P1/2t max brenda: Ao V2 max: LV V1 max P.7 cm/sec 50.7 cm/sec 156.1 cm/sec 4.1 mmHg MV A max brenda: MV P1/2t: 87.1 msec Ao max PG: LV V1 max: 62.4 cm/sec MVA(P1/2t): 2.5 cm2 9.7 mmHg 100.8 cm/sec MV E/A: 0.81 MV dec slope: FLORIN(V,D): 2.0 cm2 170.7 cm/sec2 PA V2 max: TR max brenda: 116.7 cm/sec 274.2 cm/sec PA max PG: TR max P.1 mmHg 5.5 mmHg Left Ventricle The left ventricle is normal in size. There is mild asymmetric left ventricular hypertrophy. No 'MONSTER' or LVOT obstruction , hence no IHSS ( HOCM ). LV EF is 65%. Left ventricular systolic function is normal. Doppler measurements suggest impaired left ventricular relaxation, which is associated with grade I/IV or mild diastolic dysfunction. The left ventricular wall motion is normal. There is no thrombus. Right Ventricle The right ventricle is grossly normal size. The right ventricle is not well visualized secondary to technical limitations. Atria The right atrium is normal. The left atrial size is normal. Mitral Valve There is mild mitral annular calcification. There is no evidence of mitral valve prolapse. There is no vegetation seen on the mitral valve. There is no mitral valve stenosis. There is no mitral regurgitation noted. Aortic Valve The aortic valve is mildly calcified. There is no aortic valvular vegetation. There is no aortic valve stenosis. There is no LVOT obstruction. No aortic regurgitation is present. Tricuspid Valve There is no tricuspid stenosis. There is a mild amount of tricuspid regurgitation. There is mild pulmonary hypertension by echo. RVSP is 40 mm of Hg , with RA mean of 10. Pulmonic Valve There is no pulmonic valvular stenosis. There is no pulmonic valvular regurgitation. Great Vessels The aortic root is normal size. Effusions There is no pericardial effusion. : PAT CAMP > Noemi Cunningham
--- NOTE | 2016-11-30 17:52 | PDOC PROGRESS REPORT ---
Subjective Progress Note for:: 11/30/16 Subjective:: 65 year old woman admitted for severe asthma exacerbation. She has not been compliant with refill of Symbicort HFA as per pharmacy review. She is still having wheezes and dyspnea. We will add Symbicort HFA. Physical Exam Vital Signs: Temp Pulse Resp BP Pulse Ox 97.8 F 90 20 140/83 H 98 11/30/16 16:03 11/30/16 16:03 11/30/16 16:03 11/30/16 16:03 11/30/16 16:10 Intake & Output 11/29/16 11/30/16 12/01/16 06:59 06:59 06:59 Intake Total 1944 1730 50 Balance 1944 1730 50 Weight 116.9 kg 117.1 kg General appearance: PRESENT: mild distress, morbidly obese, well-nourished Head exam: PRESENT: atraumatic, normocephalic Eye exam: PRESENT: EOMI, PERRLA Ear exam: PRESENT: TM's normal bilaterally Mouth exam: PRESENT: moist, neck supple, tongue midline Neck exam: PRESENT: full ROM Respiratory exam: PRESENT: decreased breath sounds, wheezes Cardiovascular exam: PRESENT: +S1, +S2 Pulses: PRESENT: +2 pedal pulses bilateral GI/Abdominal exam: PRESENT: normal bowel sounds, soft Rectal exam: PRESENT: deferred Extremities exam: PRESENT: full ROM Musculoskeletal exam: PRESENT: full ROM Neurological exam: PRESENT: alert, awake, oriented to person, oriented to place , oriented to time, CN II-XII grossly intact Psychiatric exam: PRESENT: normal mood Results Laboratory Results: 11/30/16 05:55 11/30/16 05:55 11/29/16 11/30/16 11/30/16 21:08 05:55 05:55 WBC 13.5 H RBC 3.86 Hgb 11.5 L Hct 35.0 L MCV 91 MCH 29.7 MCHC 32.7 RDW 14.9 H Plt Count 173 Seg Neutrophils % Not Reportable Lymphocytes % Not Reportable Monocytes % Not Reportable Eosinophils % Not Reportable Basophils % Not Reportable Absolute Neutrophils Not Reportable Absolute Lymphocytes Not Reportable Absolute Monocytes Not Reportable Absolute Eosinophils Not Reportable Absolute Basophils Not Reportable Sodium 135.8 L 140.6 Potassium 2.9 L* 3.9 D Chloride 97 L 101 Carbon Dioxide 28 29 Anion Gap 11 11 BUN 27 H 28 H Creatinine 0.85 0.70 Est GFR ( Amer) > 60 > 60 Est GFR (Non-Af Amer) > 60 > 60 Glucose 238 H 205 H Calcium 9.3 9.3 Impressions: Chest X-Ray 11/29/16 00:00 IMPRESSION: Suspect mild volume loss in the left upper lobe. Chest/Abdomen CTA 11/29/16 00:00 IMPRESSION: No acute pulmonary embolus identified. No focal infiltrates identified. No significant abnormality identified. Assessment & Plan - Diagnosis (1) Acute severe exacerbation of asthma with allergic rhinitis Is this a current diagnosis for this admission?: YesPlan: Ct with Duonebs q6h; Albuterol nebs 2.5 mg q6h prl; Solumedrol 125 mg q6h IV; Symbicort HFA 160/4.5 2 puffs q12h; oxygen by N/C at 2 L/min prn. (2) Hypertension Qualifiers: Hypertension type: essential hypertension Qualified Code(s): I10 - Essential (primary) hypertension Is this a current diagnosis for this admission?: YesPlan: Ct with Lisinopril/HCTZ 20/25 1 qd po; Hydarlazine 10 mg q6h prn IV. 2 g sodium diet. (3) Hyperlipidemia Qualifiers: Hyperlipidemia type: unspecified Qualified Code(s): E78.5 - Hyperlipidemia, unspecified Is this a current diagnosis for this admission?: YesPlan: Ct with Atorvastatin 5 mg qhs po since Lovastatin is not in our formulary. Ct with 200 mg cholesterol diet. (4) Rhinitis, allergic Qualifiers: Chronicity: unspecified Allergic rhinitis seasonality: non-seasonal Is this a current diagnosis for this admission?: YesPlan: Ct with Flonase nasal spray- 2 sprays BID; Claritin 10 mg qd po; Singulair 10 mg qd po (5) Intestinal malabsorption Qualifiers: Intestinal malabsorption type: unspecified Qualified Code(s): K90.9 - Intestinal malabsorption, unspecified Is this a current diagnosis for this admission?: YesPlan: Ct with Cholestyramine 4 g BID po (6) Vitamin D deficiency Is this a current diagnosis for this admission?: YesPlan: Ct with Vitamin D [id number] weekly po (7) Edema extremities Is this a current diagnosis for this admission?: YesPlan: Ct with Lasix 20 mG BID po; Monitor chemistries daily. Strict input/out put chart. (8) Hypokalemia Is this a current diagnosis for this admission?: YesPlan: Ct with KCL 40 MEQ qd po. Monitor chemistries daily (9) Depression Plan: Ct with Celexa 20 mg qd po. (10) DVT prophylaxis Is this a current diagnosis for this admission?: YesPlan: Ct with Lovenox 40 mg qd subcut; SCD
[2016-11-30] MEDS: CHOLESTYRAMINE/ASPARTAME 4 GM PACKET PO SCH (22:05)
[2016-11-30] MEDS: BUDESONIDE/FORMOTEROL 160-4.5 MCG 60 PUFF/6 GM MDI IH SCH (22:06)
[2016-11-30] MEDS: MONTELUKAST SODIUM 10 MG TABLET PO SCH (22:06)
[2016-11-30] MEDS: ATORVASTATIN CALCIUM 10 MG TABLET PO SCH (22:06)
[2016-12-01] MEDS: METHYLPREDNISOLONE INJ 125 MG/2 ML SDV IV SCH ×2 (06:28→21:19)
[2016-12-01 06:33] LABS: ALANINE AMINOTRANSFERASE 36 U/L (9-52); ALBUMIN 3.5 g/dL (3.5-5.0); ALKALINE PHOSPHATASE 63 U/L (38-126); ANION GAP 12 (5-19); ASPARTATE AMINO TRANSFERASE 17 U/L (14-36); BILIRUBIN,DIRECT 0.2 mg/dL (0.0-0.4); BLOOD UREA NITROGEN 31 mg/dL (7-20); CALCIUM 9.4 mg/dL (8.4-10.2); CARBON DIOXIDE 30 mmol/L (22-30); CHLORIDE 97 mmol/L (98-107); CREATININE RESULT 0.74 mg/dL (0.52-1.25); GLUCOSE 206 mg/dL (75-110); POTASSIUM 3.4 mmol/L (3.6-5.0); SODIUM 139.3 mmol/L (137-145); TOTAL PROTEIN 5.6 g/dL (6.3-8.2)
[2016-12-01 06:53] LABS: HEMOGLOBIN 11.8 g/dL (12.0-15.5); HGB HCT DIFFERENCE -0.6; MEAN CORPUSCULAR HEMOGLOBIN 29.5 pg (27.0-33.4); MEAN CORPUSCULAR HGB CONC 32.6 g/dL (32.0-36.0); MEAN CORPUSCULAR VOLUME 91 fl (80-97); RED BLOOD COUNT 3.98 10^6/uL (3.72-5.28); RED CELL DISTRIBUTION WIDTH 14.9 % (11.5-14.0); WHITE BLOOD COUNT 12.5 10^3/uL (4.0-10.5)
[2016-12-01 06:59] LABS: BASOPHILS % (MANUAL) 0 % (0-2); EOSINOPHILS % (MANUAL) 0 % (0-6); LYMPHOCYTES % (MANUAL) 10 % (13-45); TOTAL CELLS COUNTED 100
[2016-12-01 07:00] LABS: ANISOCYTOSIS SLIGHT; BURR CELLS SLIGHT; OVALOCYTES SLIGHT; POIKILOCYTOSIS SLIGHT; SCHISTOCYTES SLIGHT; TOXIC GRANULATION SLIGHT
[2016-12-01] MEDS: IPRATROPIUM/ALBUTEROL 0.5-2.5 MG/3 ML AMPUL NEB SCH ×3 (08:11→19:57)
[2016-12-01] MEDS: INSULIN LISPRO 100 UNIT/ML 3 ML VIAL SUBCUT PRN ×4 (08:32→23:17)
[2016-12-01] MEDS: CHOLESTYRAMINE/ASPARTAME 4 GM PACKET PO SCH ×4 (08:36→21:21)
[2016-12-01] MEDS: LANSOPRAZOLE 30 MG TAB.RAP.DR PO SCH (08:36)
[2016-12-01] MEDS: HYDROCHLOROTHIAZIDE 25 MG TABLET PO SCH (10:45)
[2016-12-01] MEDS: LORATADINE 10 MG TABLET PO SCH (10:46)
[2016-12-01] MEDS: FUROSEMIDE INJ/PF 20 MG/2 ML SDV IV SCH (10:46)
[2016-12-01] MEDS: LISINOPRIL 10 MG TABLET PO SCH (10:46)
[2016-12-01] MEDS: CITALOPRAM HYDROBROMIDE 20 MG TABLET PO SCH (10:46)
[2016-12-01] MEDS: ENOXAPARIN SODIUM INJ 40 MG/0.4 ML DISP.SYRIN SUBCUT SCH (10:47)
[2016-12-01] MEDS: POTASSIUM CHLORIDE 10 MEQ TABLET.SA PO SCH ×2 (10:47→17:20)
[2016-12-01] MEDS: FLUTICASONE NASAL SPRAY 50 MCG/SPRY 120 SPRAY/16 GM NASL SCH ×2 (10:48→21:21)
[2016-12-01] MEDS: BUDESONIDE/FORMOTEROL 160-4.5 MCG 60 PUFF/6 GM MDI IH SCH ×2 (10:49→21:21)
[2016-12-01] MEDS ORDERED: HYDRALAZINE HCL INJ/PF 20 MG/1 ML SDV IV PRN (12:47)
--- NOTE | 2016-12-01 14:31 | PDOC PROGRESS REPORT ---
Subjective Progress Note for:: 12/01/16 Subjective:: 65 year old woman admitted for severe asthma exacerbation. She has not been compliant with refill of Symbicort HFA as per pharmacy review. She is still having wheezes and dyspnea, but she is better after we added Symbicort HFA.We will decrease Solumedrol to 80 mg Q8H IV. Physical Exam Vital Signs: Temp Pulse Resp BP Pulse Ox 97.8 F 92 16 149/75 H 95 12/01/16 11:40 12/01/16 11:40 12/01/16 11:40 12/01/16 11:40 12/01/16 11:40 Intake & Output 11/30/16 12/01/16 12/02/16 06:59 06:59 06:59 Intake Total 1730 1198 Balance 1730 1198 Weight 117.1 kg 117.7 kg General appearance: PRESENT: cooperative, mild distress, morbidly obese, well- nourished Head exam: PRESENT: atraumatic, normocephalic Eye exam: PRESENT: EOMI, PERRLA Ear exam: PRESENT: normal external ear exam, TM's normal bilaterally Mouth exam: PRESENT: moist, neck supple Neck exam: PRESENT: full ROM Respiratory exam: PRESENT: decreased breath sounds, wheezes Cardiovascular exam: PRESENT: +S1, +S2 Pulses: PRESENT: +2 pedal pulses bilateral GI/Abdominal exam: PRESENT: normal bowel sounds, soft Rectal exam: PRESENT: deferred Extremities exam: PRESENT: full ROM Musculoskeletal exam: PRESENT: full ROM Neurological exam: PRESENT: alert, awake, oriented to person, oriented to place , oriented to time, CN II-XII grossly intact Psychiatric exam: PRESENT: normal mood Results Laboratory Results: 12/01/16 05:54 12/01/16 05:54 12/01/16 12/01/16 05:54 05:54 WBC 12.5 H RBC 3.98 Hgb 11.8 L Hct 36.0 MCV 91 MCH 29.5 MCHC 32.6 RDW 14.9 H Plt Count 178 Seg Neutrophils % Not Reportable Lymphocytes % Not Reportable Monocytes % Not Reportable Eosinophils % Not Reportable Basophils % Not Reportable Absolute Neutrophils Not Reportable Absolute Lymphocytes Not Reportable Absolute Monocytes Not Reportable Absolute Eosinophils Not Reportable Absolute Basophils Not Reportable Sodium 139.3 Potassium 3.4 L Chloride 97 L Carbon Dioxide 30 Anion Gap 12 BUN 31 H Creatinine 0.74 Est GFR ( Amer) > 60 Est GFR (Non-Af Amer) > 60 Glucose 206 H Calcium 9.4 Total Bilirubin 1.0 AST 17 ALT 36 Alkaline Phosphatase 63 Total Protein 5.6 L Albumin 3.5 Impressions: Chest X-Ray 11/29/16 00:00 IMPRESSION: Suspect mild volume loss in the left upper lobe. Chest/Abdomen CTA 11/29/16 00:00 IMPRESSION: No acute pulmonary embolus identified. No focal infiltrates identified. No significant abnormality identified. Assessment & Plan - Diagnosis (1) Acute severe exacerbation of asthma with allergic rhinitis Is this a current diagnosis for this admission?: YesPlan: Ct with Duonebs q6h; Albuterol nebs 2.5 mg q6h prl; Solumedrol 80 mg q8h IV; Symbicort HFA 160/4.5 2 puffs q12h; oxygen by N/C at 2 L/min prn. (2) Hypertension Qualifiers: Hypertension type: essential hypertension Qualified Code(s): I10 - Essential (primary) hypertension Is this a current diagnosis for this admission?: YesPlan: Ct with Lisinopril/HCTZ 20/25 1 qd po; Hydarlazine 10 mg q6h prn IV. 2 g sodium diet. (3) Hyperlipidemia Qualifiers: Hyperlipidemia type: unspecified Qualified Code(s): E78.5 - Hyperlipidemia, unspecified Is this a current diagnosis for this admission?: YesPlan: Ct with Atorvastatin 5 mg qhs po since Lovastatin is not in our formulary. Ct with 200 mg cholesterol diet. (4) Rhinitis, allergic Qualifiers: Chronicity: unspecified Allergic rhinitis seasonality: non-seasonal Is this a current diagnosis for this admission?: YesPlan: Ct with Flonase nasal spray- 2 sprays BID; Claritin 10 mg qd po; Singulair 10 mg qd po (5) Intestinal malabsorption Qualifiers: Intestinal malabsorption type: unspecified Qualified Code(s): K90.9 - Intestinal malabsorption, unspecified Is this a current diagnosis for this admission?: YesPlan: Ct with Cholestyramine 4 g BID po (6) Vitamin D deficiency Is this a current diagnosis for this admission?: YesPlan: Ct with Vitamin D [id number] weekly po (7) Edema extremities Is this a current diagnosis for this admission?: YesPlan: Ct with Lasix 20 mg daily po; Monitor chemistries daily. Strict input/out put chart. (8) Hypokalemia Is this a current diagnosis for this admission?: YesPlan: Ct with KCL 40 MEQ qd po. Monitor chemistries daily (9) Depression Plan: Ct with Celexa 20 mg qd po. (10) DVT prophylaxis Is this a current diagnosis for this admission?: YesPlan: Ct with Lovenox 40 mg qd subcut; SCD
[2016-12-01] MEDS ORDERED: METHYLPREDNISOLONE INJ 125 MG/2 ML SDV IV ONE (15:00)
[2016-12-01] MEDS: ATORVASTATIN CALCIUM 10 MG TABLET PO SCH (21:21)
[2016-12-01] MEDS: MONTELUKAST SODIUM 10 MG TABLET PO SCH (21:21)
[2016-12-02] MEDS: METHYLPREDNISOLONE INJ 125 MG/2 ML SDV IV SCH ×3 (05:40→21:42)
[2016-12-02 05:50] LABS: HEMATOCRIT 36.8 % (36.0-47.0); HGB HCT DIFFERENCE -0.8; MEAN CORPUSCULAR HGB CONC 32.5 g/dL (32.0-36.0); MEAN CORPUSCULAR VOLUME 92 fl (80-97); RED BLOOD COUNT 3.99 10^6/uL (3.72-5.28); RED CELL DISTRIBUTION WIDTH 14.4 % (11.5-14.0); WHITE BLOOD COUNT 13.7 10^3/uL (4.0-10.5)
[2016-12-02 06:08] LABS: ALANINE AMINOTRANSFERASE 27 U/L (9-52); ALBUMIN 3.5 g/dL (3.5-5.0); ALKALINE PHOSPHATASE 58 U/L (38-126); ANION GAP 12 (5-19); ASPARTATE AMINO TRANSFERASE 22 U/L (14-36); BILIRUBIN,DIRECT 0.2 mg/dL (0.0-0.4); BILIRUBIN,TOTAL 1.2 mg/dL (0.2-1.3); BLOOD UREA NITROGEN 36 mg/dL (7-20); CALCIUM 9.2 mg/dL (8.4-10.2); CARBON DIOXIDE 29 mmol/L (22-30); CHLORIDE 98 mmol/L (98-107); CREATININE RESULT 0.72 mg/dL (0.52-1.25); GLUCOSE 193 mg/dL (75-110); POTASSIUM 3.7 mmol/L (3.6-5.0); SODIUM 138.7 mmol/L (137-145); TOTAL PROTEIN 6.1 g/dL (6.3-8.2)
[2016-12-02 06:21] LABS: BAND NEUTROPHILS % (MANUAL) 2 % (3-5); BASOPHILS % (MANUAL) 0 % (0-2); EOSINOPHILS % (MANUAL) 0 % (0-6); LYMPHOCYTES % (MANUAL) 2 % (13-45); TOTAL CELLS COUNTED 100
[2016-12-02 06:22] LABS: ANISOCYTOSIS SLIGHT; OVALOCYTES SLIGHT; POIKILOCYTOSIS SLIGHT; TOXIC VACUOLATION PRESENT
[2016-12-02] MEDS: IPRATROPIUM/ALBUTEROL 0.5-2.5 MG/3 ML AMPUL NEB SCH ×3 (07:44→19:56)
[2016-12-02] MEDS: LANSOPRAZOLE 30 MG TAB.RAP.DR PO SCH (08:38)
[2016-12-02] MEDS: CHOLESTYRAMINE/ASPARTAME 4 GM PACKET PO SCH ×4 (08:38→21:42)
[2016-12-02] MEDS: INSULIN LISPRO 100 UNIT/ML 3 ML VIAL SUBCUT PRN ×4 (08:38→23:17)
[2016-12-02] MEDS ORDERED: FUROSEMIDE INJ/PF 20 MG/2 ML SDV IV SCH (10:00)
[2016-12-02] MEDS: FLUTICASONE NASAL SPRAY 50 MCG/SPRY 120 SPRAY/16 GM NASL SCH ×2 (10:33→21:42)
[2016-12-02] MEDS: ENOXAPARIN SODIUM INJ 40 MG/0.4 ML DISP.SYRIN SUBCUT SCH (10:33)
[2016-12-02] MEDS: BUDESONIDE/FORMOTEROL 160-4.5 MCG 60 PUFF/6 GM MDI IH SCH ×2 (10:33→21:43)
[2016-12-02] MEDS: LORATADINE 10 MG TABLET PO SCH (10:33)
[2016-12-02] MEDS: CITALOPRAM HYDROBROMIDE 20 MG TABLET PO SCH (10:34)
[2016-12-02] MEDS: POTASSIUM CHLORIDE 10 MEQ TABLET.SA PO SCH ×2 (10:34→17:11)
[2016-12-02] MEDS: HYDROCHLOROTHIAZIDE 25 MG TABLET PO SCH (10:35)
[2016-12-02] MEDS: LISINOPRIL 10 MG TABLET PO SCH (10:35)
--- NOTE | 2016-12-02 17:07 | PDOC PROGRESS REPORT ---
Subjective Progress Note for:: 12/02/16 Subjective:: 65 year old woman admitted for severe asthma exacerbation. She has not been compliant with refill of Symbicort HFA as per pharmacy review. She is still having wheezes and dyspnea, but she is better after we added Symbicort HFA.We will decrease Solumedrol to 60 mg Q8H IV. Physical Exam Vital Signs: Temp Pulse Resp BP Pulse Ox 98.2 F 85 18 147/86 H 97 12/02/16 15:16 12/02/16 15:16 12/02/16 15:16 12/02/16 15:16 12/02/16 15:16 Intake & Output 12/01/16 12/02/16 12/03/16 06:59 06:59 06:59 Intake Total 1198 2770 Balance 1198 2770 Weight 117.7 kg 115.5 kg General appearance: PRESENT: cooperative, mild distress, morbidly obese, well- nourished Head exam: PRESENT: atraumatic, normocephalic Eye exam: PRESENT: EOMI, PERRLA Ear exam: PRESENT: TM's normal bilaterally Mouth exam: PRESENT: moist, neck supple, tongue midline Respiratory exam: PRESENT: decreased breath sounds, symmetrical, wheezes Cardiovascular exam: PRESENT: +S1, +S2 Pulses: PRESENT: +2 pedal pulses bilateral GI/Abdominal exam: PRESENT: normal bowel sounds, soft Rectal exam: PRESENT: deferred Extremities exam: PRESENT: full ROM Musculoskeletal exam: PRESENT: full ROM Neurological exam: PRESENT: alert, awake, oriented to person, oriented to place Psychiatric exam: PRESENT: normal mood Results Laboratory Results: 12/02/16 05:15 12/02/16 05:15 12/02/16 12/02/16 05:15 05:15 WBC 13.7 H RBC 3.99 Hgb 12.0 Hct 36.8 MCV 92 MCH 30.0 MCHC 32.5 RDW 14.4 H Plt Count 160 Seg Neutrophils % Not Reportable Lymphocytes % Not Reportable Monocytes % Not Reportable Eosinophils % Not Reportable Basophils % Not Reportable Absolute Neutrophils Not Reportable Absolute Lymphocytes Not Reportable Absolute Monocytes Not Reportable Absolute Eosinophils Not Reportable Absolute Basophils Not Reportable Sodium 138.7 Potassium 3.7 Chloride 98 Carbon Dioxide 29 Anion Gap 12 BUN 36 H Creatinine 0.72 Est GFR ( Amer) > 60 Est GFR (Non-Af Amer) > 60 Glucose 193 H Calcium 9.2 Total Bilirubin 1.2 AST 22 ALT 27 Alkaline Phosphatase 58 Total Protein 6.1 L Albumin 3.5 Impressions: Chest X-Ray 11/29/16 00:00 IMPRESSION: Suspect mild volume loss in the left upper lobe. Chest/Abdomen CTA 11/29/16 00:00 IMPRESSION: No acute pulmonary embolus identified. No focal infiltrates identified. No significant abnormality identified. Assessment & Plan - Diagnosis (1) Acute severe exacerbation of asthma with allergic rhinitis Is this a current diagnosis for this admission?: YesPlan: Ct with Duonebs q6h; Albuterol nebs 2.5 mg q6h prl; Solumedrol 60 mg q8h IV; Symbicort HFA 160/4.5 2 puffs q12h; oxygen by N/C at 2 L/min prn. (2) Hypertension Qualifiers: Hypertension type: essential hypertension Qualified Code(s): I10 - Essential (primary) hypertension Is this a current diagnosis for this admission?: YesPlan: Ct with Lisinopril/HCTZ 20/25 1 qd po; Hydarlazine 10 mg q6h prn IV. 2 g sodium diet. (3) Hyperlipidemia Qualifiers: Hyperlipidemia type: unspecified Qualified Code(s): E78.5 - Hyperlipidemia, unspecified Is this a current diagnosis for this admission?: YesPlan: Ct with Atorvastatin 5 mg qhs po since Lovastatin is not in our formulary. Ct with 200 mg cholesterol diet. (4) Rhinitis, allergic Qualifiers: Chronicity: unspecified Allergic rhinitis seasonality: non-seasonal Is this a current diagnosis for this admission?: YesPlan: Ct with Flonase nasal spray- 2 sprays BID; Claritin 10 mg qd po; Singulair 10 mg qd po (5) Intestinal malabsorption Qualifiers: Intestinal malabsorption type: unspecified Qualified Code(s): K90.9 - Intestinal malabsorption, unspecified Is this a current diagnosis for this admission?: YesPlan: Ct with Cholestyramine 4 g BID po (6) Vitamin D deficiency Is this a current diagnosis for this admission?: YesPlan: Ct with Vitamin D [id number] weekly po (7) Edema extremities Is this a current diagnosis for this admission?: NoPlan: Monitor chemistries daily. Strict input/out put chart.She no longer need diuretic since she does not have leg swelling. (8) Hypokalemia Is this a current diagnosis for this admission?: YesPlan: Ct with KCL 40 MEQ qd po. Monitor chemistries daily (9) Depression Is this a current diagnosis for this admission?: YesPlan: Ct with Celexa 20 mg qd po. (10) DVT prophylaxis Is this a current diagnosis for this admission?: YesPlan: Ct with Lovenox 40 mg qd subcut; SCD
[2016-12-02] MEDS: ATORVASTATIN CALCIUM 10 MG TABLET PO SCH (21:42)
[2016-12-02] MEDS: MONTELUKAST SODIUM 10 MG TABLET PO SCH (21:43)
[2016-12-03] MEDS: METHYLPREDNISOLONE INJ 125 MG/2 ML SDV IV SCH (05:16)
[2016-12-03 06:58] LABS: HEMATOCRIT 37.8 % (36.0-47.0); HEMOGLOBIN 12.1 g/dL (12.0-15.5); HGB HCT DIFFERENCE -1.5; MEAN CORPUSCULAR HEMOGLOBIN 29.6 pg (27.0-33.4); MEAN CORPUSCULAR HGB CONC 32.1 g/dL (32.0-36.0); MEAN CORPUSCULAR VOLUME 92 fl (80-97); RED CELL DISTRIBUTION WIDTH 14.4 % (11.5-14.0); WHITE BLOOD COUNT 14.1 10^3/uL (4.0-10.5)
[2016-12-03 07:16] LABS: BAND NEUTROPHILS % (MANUAL) 2 % (3-5); BASOPHILS % (MANUAL) 0 % (0-2); EOSINOPHILS % (MANUAL) 1 % (0-6); LYMPHOCYTES % (MANUAL) 9 % (13-45); TOTAL CELLS COUNTED 100
[2016-12-03 07:17] LABS: POLYCHROMASIA SLIGHT
[2016-12-03 07:18] LABS: ANISOCYTOSIS SLIGHT; BURR CELLS SLIGHT; OVALOCYTES 1+; POIKILOCYTOSIS 1+
[2016-12-03 07:21] LABS: ALANINE AMINOTRANSFERASE 33 U/L (9-52); ALBUMIN 3.5 g/dL (3.5-5.0); ALKALINE PHOSPHATASE 65 U/L (38-126); ANION GAP 11 (5-19); ASPARTATE AMINO TRANSFERASE 22 U/L (14-36); BILIRUBIN,DIRECT 0.1 mg/dL (0.0-0.4); BILIRUBIN,TOTAL 1.2 mg/dL (0.2-1.3); BLOOD UREA NITROGEN 32 mg/dL (7-20); CALCIUM 9.3 mg/dL (8.4-10.2); CARBON DIOXIDE 27 mmol/L (22-30); CHLORIDE 101 mmol/L (98-107); CREATININE RESULT 0.68 mg/dL (0.52-1.25); GLUCOSE 160 mg/dL (75-110); POTASSIUM 3.8 mmol/L (3.6-5.0); SODIUM 138.7 mmol/L (137-145); TOTAL PROTEIN 6.1 g/dL (6.3-8.2)
[2016-12-03] MEDS: IPRATROPIUM/ALBUTEROL 0.5-2.5 MG/3 ML AMPUL NEB SCH ×3 (08:15→19:34)
[2016-12-03] MEDS: CHOLESTYRAMINE/ASPARTAME 4 GM PACKET PO SCH ×4 (08:29→21:18)
[2016-12-03] MEDS: LANSOPRAZOLE 30 MG TAB.RAP.DR PO SCH (08:30)
[2016-12-03] MEDS: FLUTICASONE NASAL SPRAY 50 MCG/SPRY 120 SPRAY/16 GM NASL SCH ×2 (11:02→21:19)
[2016-12-03] MEDS: ENOXAPARIN SODIUM INJ 40 MG/0.4 ML DISP.SYRIN SUBCUT SCH (11:02)
[2016-12-03] MEDS: BUDESONIDE/FORMOTEROL 160-4.5 MCG 60 PUFF/6 GM MDI IH SCH ×2 (11:02→21:18)
[2016-12-03] MEDS: LISINOPRIL 10 MG TABLET PO SCH (11:03)
[2016-12-03] MEDS: PREDNISONE 20 MG TABLET PO SCH ×2 (11:03→17:13)
[2016-12-03] MEDS: LORATADINE 10 MG TABLET PO SCH (11:04)
[2016-12-03] MEDS: HYDROCHLOROTHIAZIDE 25 MG TABLET PO SCH (11:04)
[2016-12-03] MEDS: CITALOPRAM HYDROBROMIDE 20 MG TABLET PO SCH (11:05)
[2016-12-03] MEDS: INSULIN LISPRO 100 UNIT/ML 3 ML VIAL SUBCUT PRN ×3 (12:20→22:15)
[2016-12-03] MEDS: POTASSIUM CHLORIDE 10 MEQ TABLET.SA PO SCH (17:14)
--- NOTE | 2016-12-03 20:05 | PDOC PROGRESS REPORT ---
Subjective Progress Note for:: 12/03/16 Subjective:: Reports that she is piquantly improved. Denies chest pain, fever, chills, nausea, vomiting, diarrhea, edema. Physical Exam Vital Signs: Temp Pulse Resp BP Pulse Ox 97.9 F 98 16 146/94 H 97 12/03/16 07:12 12/03/16 08:15 12/03/16 08:15 12/03/16 07:12 12/03/16 08:15 Intake & Output 12/02/16 12/03/16 12/04/16 06:59 06:59 06:59 Intake Total 2770 1170 390 Balance 2770 1170 390 Weight 115.5 kg 115.5 kg 115.5 kg Exam: GENERAL: No acute distress HEENT: Conjunctiva clear, nonicteric, moist mucous membranes, no JVD, midline trachea RESPIRATORY: good air excursion, CTAB CARDIAC: Regular rate and rhythm, no murmurs/gallops/rubs ABDOMEN: Soft, nondistended, nontender, positive bowel sounds, no rebound, no guarding EXTREMETIES: No cyanosis, clubbing; trace edema NEUROLOGIC: Alert, oriented to person/place/time, CN's grossly intact, no focal deficits SKIN: No rash, wounds PSYCH: Normal mood, normal affect Results Laboratory Results: 12/03/16 06:32 12/03/16 06:32 12/03/16 12/03/16 06:32 06:32 WBC 14.1 H RBC 4.10 Hgb 12.1 Hct 37.8 MCV 92 MCH 29.6 MCHC 32.1 RDW 14.4 H Plt Count 163 Seg Neutrophils % Not Reportable Lymphocytes % Not Reportable Monocytes % Not Reportable Eosinophils % Not Reportable Basophils % Not Reportable Absolute Neutrophils Not Reportable Absolute Lymphocytes Not Reportable Absolute Monocytes Not Reportable Absolute Eosinophils Not Reportable Absolute Basophils Not Reportable Sodium 138.7 Potassium 3.8 Chloride 101 Carbon Dioxide 27 Anion Gap 11 BUN 32 H Creatinine 0.68 Est GFR ( Amer) > 60 Est GFR (Non-Af Amer) > 60 Glucose 160 H Calcium 9.3 Total Bilirubin 1.2 AST 22 ALT 33 Alkaline Phosphatase 65 Total Protein 6.1 L Albumin 3.5 Impressions: Chest X-Ray 11/29/16 00:00 IMPRESSION: Suspect mild volume loss in the left upper lobe. Chest/Abdomen CTA 11/29/16 00:00 IMPRESSION: No acute pulmonary embolus identified. No focal infiltrates identified. No significant abnormality identified. Assessment & Plan - Diagnosis (1) Acute severe exacerbation of asthma with allergic rhinitis Is this a current diagnosis for this admission?: YesPlan: Transition patient to prednisone. Continue breathing treatments. Continues to be this improved tomorrow may be discharged home Patient will be covered by Dr. Dupont beginning 12/05/2016. (2) Hyperlipidemia Qualifiers: Hyperlipidemia type: unspecified Qualified Code(s): E78.5 - Hyperlipidemia, unspecified Is this a current diagnosis for this admission?: Yes (3) Hypertension Qualifiers: Hypertension type: essential hypertension Qualified Code(s): I10 - Essential (primary) hypertension Is this a current diagnosis for this admission?: Yes (4) Hypokalemia Is this a current diagnosis for this admission?: Yes (5) Osteoarthritis Qualifiers: Osteoarthritis location: unspecified site Osteoarthritis type: unspecified Qualified Code(s): M19.90 - Unspecified osteoarthritis, unspecified site Is this a current diagnosis for this admission?: Yes (6) Vitamin D deficiency Is this a current diagnosis for this admission?: Yes (7) Obesity Qualifiers: Obesity type: due to excess calories Is this a current diagnosis for this admission?: Yes (8) Pulmonary hypertension Is this a current diagnosis for this admission?: Yes (9) Sleep-disordered breathing Is this a current diagnosis for this admission?: YesPlan: Recommend outpatient study for sleep apnea - Time Time Spent with patient: 25-34 minutes Medications reviewed and adjusted accordingly: Yes Anticipated discharge: Home Within: within 24 hours
[2016-12-03] MEDS: MONTELUKAST SODIUM 10 MG TABLET PO SCH (21:19)
[2016-12-03] MEDS: ATORVASTATIN CALCIUM 10 MG TABLET PO SCH (21:21)
[2016-12-04] MEDS: LANSOPRAZOLE 30 MG TAB.RAP.DR PO SCH (08:14)
[2016-12-04] MEDS: CHOLESTYRAMINE/ASPARTAME 4 GM PACKET PO SCH (08:14)
[2016-12-04] MEDS: INSULIN LISPRO 100 UNIT/ML 3 ML VIAL SUBCUT PRN (08:14)
[2016-12-04] MEDS: IPRATROPIUM/ALBUTEROL 0.5-2.5 MG/3 ML AMPUL NEB SCH (08:41)
[2016-12-04 09:15] VITALS: BP 151/97
[2016-12-04] MEDS: LISINOPRIL 10 MG TABLET PO SCH (10:34)
[2016-12-04] MEDS: BUDESONIDE/FORMOTEROL 160-4.5 MCG 60 PUFF/6 GM MDI IH SCH (10:34)
[2016-12-04] MEDS: LORATADINE 10 MG TABLET PO SCH (10:35)
[2016-12-04] MEDS: PREDNISONE 20 MG TABLET PO SCH (10:35)
[2016-12-04] MEDS: CITALOPRAM HYDROBROMIDE 20 MG TABLET PO SCH (10:35)
[2016-12-04] MEDS: FLUTICASONE NASAL SPRAY 50 MCG/SPRY 120 SPRAY/16 GM NASL SCH (10:35)
[2016-12-04] MEDS: HYDROCHLOROTHIAZIDE 25 MG TABLET PO SCH (10:35)
[2016-12-04] MEDS: ENOXAPARIN SODIUM INJ 40 MG/0.4 ML DISP.SYRIN SUBCUT SCH (10:38)
--- NOTE | 2016-12-04 13:49 | PDOC DISCHARGE SUMMARY ---
General - Admit/Disc Date/PCP Admission Date/Primary Care Provider: 11/26/16 17:41 Dr. Dupont Discharge Date: 12/04/16 - Discharge Diagnosis (1) Acute severe exacerbation of asthma with allergic rhinitis Is this a current diagnosis for this admission?: Yes (2) Hyperlipidemia Is this a current diagnosis for this admission?: Yes (3) Hypertension Is this a current diagnosis for this admission?: Yes (4) Hypokalemia Is this a current diagnosis for this admission?: Yes (5) Osteoarthritis Is this a current diagnosis for this admission?: Yes (6) Vitamin D deficiency Is this a current diagnosis for this admission?: Yes (7) Obesity Is this a current diagnosis for this admission?: Yes (8) Pulmonary hypertension Is this a current diagnosis for this admission?: Yes (9) Sleep-disordered breathing Is this a current diagnosis for this admission?: Yes - Additional Information Resuscitation Status: Full Code Discharge Diet: Cardiac, Diabetic Discharge Activity: Activity As Tolerated, Slowly Increase Activity, Weigh Daily Home Medications: Citalopram Hydrobromide [Celexa 20 mg Tablet] 20 mg PO DAILY 11/27/16 Ergocalciferol (Vitamin D2) [Drisdol 50,000 unit (1.25MG) Capsule] 50,000 unit PO WE@10 11/27/16 Ipratropium/Albuterol Sulfate [Duoneb 3 ml Ampul] 3 ml NEB RTQID 11/27/16 Lisinopril/Hydrochlorothiazide [Lisinopril-Hctz 20-25 mg Tab] 1 tab PO DAILY 07/15 Loratadine [Claritin 10 mg Tablet] 10 mg PO DAILY 11/27/16 Lovastatin [Mevacor] 20 mg PO DAILY 11/27/16 Omeprazole 40 mg PO DAILY 11/27/16 Oxycodone HCl/Acetaminophen [Percocet 5-325 mg Tablet] 1 tab PO Q8HP PRN Potassium Chloride [K-Tab ER] 20 meq PO ACBRKFST 11/27/16 Budesonide/Formoterol Fumarate [Symbicort HFA 160-4.5 mcg Inhaler 6 gm] 2 puff IH Q12 #1 inhaler 12/04/16 Fluticasone Propionate [Flonase Nasal Convoy 50 Mcg/Convoy 16 gm] 1 spray NASL Q12 #1 spray.pump 07/09/17 Montelukast Sodium [Singulair 10 mg Tablet] 10 mg PO QHS #30 tablet 12/04/16 Prednisone [Deltasone 20 mg Tablet] 40 mg PO BID #30 tablet 12/04/16 History of Present Illness History of Present Illness: Please see h+P for full HPI Hospital Course Hospital Course: Patient was admitted and started on high dose Solumedrol and scheduled nebulized treatments. Patient required slow taper of steroids. Underwent a CTA of the chest which revealed significant scarring of the lingula. She also underwent echocardiogram which revealed mild pulmonary hypertension. Patient continued to improve and was discharged on a tapering basis steroids. Patient was given referral to pulmonary medicine with Dr. Gibbs and to Dr. Zuniga for possible obstructive sleep apnea. Patient did describe significant snoring and her did admit to frequent arousal from sleep with coughing and gasping. Patient is discharged home today in stable condition. Physical Exam Vital Signs: Temp Pulse Resp BP Pulse Ox 98.1 F 95 17 151/97 H 98 12/04/16 10:23 12/04/16 10:23 12/04/16 10:23 12/04/16 10:23 12/04/16 10:23 Intake & Output 12/03/16 12/04/16 12/05/16 06:59 06:59 06:59 Intake Total 1170 2360 840 Balance 1170 2360 840 Weight 115.5 kg 116.9 kg Exam: GENERAL: No acute distress HEENT: Conjunctiva clear, nonicteric, moist mucous membranes, no JVD, midline trachea RESPIRATORY: good air excursion, CTAB CARDIAC: Regular rate and rhythm, no murmurs/gallops/rubs ABDOMEN: Soft, nondistended, nontender, positive bowel sounds, no rebound, no guarding EXTREMETIES: No cyanosis, clubbing; trace edema NEUROLOGIC: Alert, oriented to person/place/time, CN's grossly intact, no focal deficits SKIN: No rash, wounds PSYCH: Normal mood, normal affect Results Laboratory Results: 12/03/16 06:32 12/03/16 06:32 Impressions: Chest X-Ray 11/29/16 00:00 IMPRESSION: Suspect mild volume loss in the left upper lobe. Chest/Abdomen CTA 11/29/16 00:00 IMPRESSION: No acute pulmonary embolus identified. No focal infiltrates identified. No significant abnormality identified. Qualifiers PATEINT BEING DISCHARGED WITH ANY OF THE FOLLOWING DIAGNOSIS?: No Plan Time Spent: Less than 30 Minutes
== END 2016-12-04 10:50 | disposition home or self-care (01) | DRG 203 ==
LOC: ER 14:57 → EH 17:41 → UNDOADMIN 18:08 → 5 20:20
PROVIDERS: ADMIT Internal Medicine; ATTEND Internal Medicine
PROC: 5A09357 Assistance with Respiratory Ventilation, Less than 24 Consecutive Hours, Continuous Positive Airway Pressure (ICD-10-PCS; principal; 2016-11-26)
DX: J45.51 Severe persistent asthma with (acute) exacerbation (principal); E78.5 Hyperlipidemia, unspecified; I10 Essential (primary) hypertension; E87.6 Hypokalemia; M19.90 Unspecified osteoarthritis, unspecified site; E55.9 Vitamin D deficiency, unspecified; E66.9 Obesity, unspecified; Z68.38 Body mass index [BMI] 38.0-38.9, adult; I27.2 Other secondary pulmonary hypertension; F32.9 Major depressive disorder, single episode, unspecified; Z79.899 Other long term (current) drug therapy; Z90.710 Acquired absence of both cervix and uterus; Z88.0 Allergy status to penicillin
CPT/HCPCS: 36415; 71010; 71020; 71275; 80048; 80053; 82962; 83036; 83735; 85025; 93306; 94640; 99291; J1650; J1815; J1940; J2920; J2930; J3490; J7512; J7620

== ENCOUNTER 2017-03-03 11:33 | Emergency (ER) | payer MEDICARE, MEDICAID ==
[2017-03-03 11:39] VITALS: BP 131/99
[2017-03-03] MEDS ORDERED: IPRATROPIUM/ALBUTEROL 0.5-2.5 MG/3 ML AMPUL NEB ONE ×3 (11:43→11:44)
[2017-03-03] MEDS ORDERED: PREDNISONE 20 MG TABLET PO ONE (11:44)
--- NOTE | 2017-03-03 11:44 | ER Document Report ---
ED General - General Chief Complaint: Shortness Of Breath Stated Complaint: DIFFICULTY BREATHING Time Seen by Provider: 03/03/17 11:43 Mode of Arrival: Ambulatory Information source: Patient Notes: 66-year-old female history of asthma presents with complaint of asthma exacerbation of the 4 days. Patient was last on steroids in October is nondiabetic. She notes they are burning incense at home which has flared up her allergies. Patient denies any fevers or chills denies any productivity to the cough TRAVEL OUTSIDE OF THE [place] IN LAST 30 DAYS: No - HPI Onset: Other Onset/Duration: Persistent Quality of pain: No pain Severity: Mild Pain Level: Denies Associated symptoms: Nonproductive cough, Shortness of breath Exacerbated by: Walking, Coughing Relieved by: Denies Similar symptoms previously: Yes Recently seen / treated by doctor: Yes - Related Data Allergies/Adverse Reactions: Penicillins Allergy (Intermediate, Verified 11/26/16 15:02) Nausea Past Medical History - Social History Smoking Status: Never Smoker Cigarette use (# per day): No Chew tobacco use (# tins/day): No Smoking Education Provided: No Frequency of alcohol use: None Family History: Reviewed & Not Pertinent Patient has suicidal ideation: No Patient has homicidal ideation: No - Past Medical History Cardiac Medical History: Reports: Hx Hypercholesterolemia, Hx Hypertension Denies: Hx Coronary Artery Disease, Hx Heart Attack Pulmonary Medical History: Reports: Hx Asthma, Hx COPD, Hx Pneumonia Denies: Hx Bronchitis Neurological Medical History: Denies: Hx Cerebrovascular Accident, Hx Seizures Renal/ Medical History: Denies: Hx Peritoneal Dialysis Musculoskeltal Medical History: Denies Hx Arthritis Psychiatric Medical History: Reports: Hx Depression Past Surgical History: Reports: Hx Bowel Surgery, Hx Hysterectomy, Hx Orthopedic Surgery - Right ORIF, Hx Umbilical Hernia - Immunizations Immunizations up to date: Yes Hx Diphtheria, Pertussis, Tetanus Vaccination: Yes Hx Pneumococcal Vaccination: 10/20/11 Review of Systems - Review of Systems Notes: REVIEW OF SYSTEMS: CONSTITUTIONAL : Denies fever, chills, or sweats. Denies recent illness. EENT: Denies eye, ear, throat, or mouth pain or symptoms. Denies nasal or sinus congestion or discharge. Denies throat, tongue, or mouth swelling or difficulty swallowing. CARDIOVASCULAR: Denies chest pain. Denies palpitations or racing or irregular heart beat. Denies ankle edema. RESPIRATORY: Admits shortness of breath difficulty breathing GASTROINTESTINAL: Denies abdominal pain or distention. Denies nausea, vomiting , or diarrhea. Denies blood in vomitus, stools, or per rectum. Denies black, tarry stools. Denies constipation. GENITOURINARY: Denies difficulty urinating, painful urination, burning, frequency, blood in urine, or discharge. FEMALE GENITOURINARY: Denies vaginal bleeding, heavy or abnormal periods, irregular periods. Denies vaginal discharge or odor. MUSCULOSKELETAL: Denies back or neck pain or stiffness. Denies joint pain or swelling. SKIN: Denies rash, lesions or sores. HEMATOLOGIC : Denies easy bruising or bleeding. LYMPHATIC: Denies swollen, enlarged glands. NEUROLOGICAL: Denies confusion or altered mental status. Denies passing out or loss of consciousness. Denies dizziness or lightheadedness. Denies headache. Denies weakness or paralysis or loss of use of either side. Denies problems with gait or speech. Denies sensory loss, numbness, or tingling. Denies seizures. PSYCHIATRIC: Denies anxiety or stress. Denies depression, suicidal ideation, or homicidal ideation. ALL OTHER SYSTEMS REVIEWED AND NEGATIVE. PHYSICAL EXAMINATION: GENERAL: Well-appearing, well-nourished and in no acute distress. HEAD: Atraumatic, normocephalic. EYES: Pupils equal round and reactive to light, extraocular movements intact, conjunctiva are normal. ENT: Nares patent, oropharynx clear without exudates. Moist mucous membranes. NECK: Normal range of motion, supple without lymphadenopathy LUNGS: Coarse inspiratory expiratory wheezing all throughout HEART: Regular rate and rhythm without murmurs ABDOMEN: Soft, nontender, nondistended abdomen. No guarding, no rebound. No masses appreciated. Female : deferred Musculoskeletal: Normal range of motion, no pitting or edema. No cyanosis. NEUROLOGICAL: Cranial nerves grossly intact. Normal speech, normal gait. Normal sensory, motor exams PSYCH: Normal mood, normal affect. SKIN: Warm, Dry, normal turgor, no rashes or lesions noted. Dictation was performed using [employer] Mobile recognition software Physical Exam - Vital signs Vitals: Temp Pulse Resp BP Pulse Ox 97.9 F 106 H 24 H 131/99 H 92 03/03/17 11:38 03/03/17 11:38 03/03/17 11:38 03/03/17 11:38 03/03/17 11:38 Course - Re-evaluation Re-evalutation: 03/03/17 11:46 Patient will be treated with 3 DuoNeb's prednisone. I will reevaluate after breathing treatments. Patient is currently satting 92% on room air. Patient does not appear to be in any distress at this time 03/03/17 12:35 Patient notes significant relief of breathing difficulty after breathing treatments. She requests to go home, 03/03/17 12:45 Pt O2 sats are up to 94% patient otherwise looks well is insistent she leaves After performing a Medical Screening Examination, I estimate there is LOW risk for ACUTE CORONARY SYNDROME, RESPIRATORY FAILURE, SEPSIS OR MENINGITIS, thus I consider the discharge disposition reasonable. I have reevaluated this patient multiple times and no significant life threatening changes are noted. The patient and I have discussed the diagnosis and risks, and we agree with discharging home with close follow-up. We also discussed returning to the Emergency Department immediately if new or worsening symptoms occur. We have discussed the symptoms which are most concerning (e.g., changing or worsening pain, trouble swallowing or breathing, neck stiffness, fever) that necessitate immediate return. - Vital Signs Vital signs: Temp Pulse Resp BP Pulse Ox 97.9 F 102 H 24 H 131/99 H 94 03/03/17 11:38 03/03/17 12:34 03/03/17 11:38 03/03/17 11:38 03/03/17 12:34 Discharge - Discharge Clinical Impression: COPD exacerbation Condition: Stable Disposition: HOME, SELF-CARE Instructions: Chronic Obstructive Lung Disease ([facility]) Additional Instructions: Follow up with your physician tomorrow for further care or return to the ED IMMEDIATELY if symptoms worsen or new concerns occur. If you cannot afford to follow up with your primary care physician a list of low cost clinics have been provided at the end of your discharge papers as well. Prescriptions: Prednisone [Deltasone 20 mg Tablet] 3 tab PO DAILY 5 Days tablet
== END 2017-03-03 12:47 | disposition home or self-care (01) ==
LOC: ER 11:33
DX: J44.1 Chronic obstructive pulmonary disease with (acute) exacerbation (principal); R05 Cough; R06.02 Shortness of breath
CPT/HCPCS: 94640 ×2; 99284; A9270 ×2; J7512; J7620

== ENCOUNTER → 2017-05-09 | Outpatient (CLI) | payer MEDICARE, MEDICAID ==
--- NOTE | 2017-05-09 14:13 | WOMENS IMAGING REPORT ---
EXAM DESCRIPTION: BILAT SCREENING MAMMO W/CAD COMPLETED DATE/TIME: 05/09/2017 10:45 am REASON FOR STUDY: SCREENING MAMMO Z12.31 ENCNTR SCREEN MAMMOGRAM FOR MALIGNANT NEOPLASM OF KATJA COMPARISON: Multiple since 2009 TECHNIQUE: Standard craniocaudal and mediolateral oblique views of each breast recorded using digita l acquisition. LIMITATIONS: None. FINDINGS: Findings present which are benign by mammographic criteria. No suspicious masses, calcifi cations or architectural distortion. Pertinent benign findings: Benign calcifications bilaterally Read with the assistance of CAD. .[facility] - R2 Cenova Version 1.3 .[facility] - R2 Cenova Version 1.3 .[facility] - R2 Cenova Version 2.4 .[facility] [place] - R2 Cenova Version 2.4 .[facility] - R2 Washerette Machine Operator Version 9.2 Benign mammographic findings may include one or more of the following: Smooth masses, popcorn/rim/co arse calcifications, asymmetries, post-procedure changes, and lesions with long-standing stability. IMPRESSION: BENIGN MAMMOGRAPHIC FINDINGS. BIRADS 2 BREAST DENSITY: b. There are scattered areas of fibroglandular density. BIRAD: 2 BENIGN FINDING(S) RECOMMENDATION: ROUTINE SCREENING COMMENT: The patient has been notified of the results by letter per SA requirements. Additional no tification policies are in place for contacting patient with suspicious or incomplete findings. Quality ID #225: The [employer] recommends an annual screening mammogram for women aged 40 years or over. This facility utilizes a reminder system to ensure that all patients receive reminder letters, and/or direct phone calls for appointments. This includes reminders for routine scr eening mammograms, diagnostic mammograms, or other Breast Imaging Interventions when appropriate. Th is patient will be placed in the appropriate reminder system. The [employer] (ACR) has developed recommendations for screening MRI of the breast s in certain patient populations, to be used in conjunction with mammography. Breast MRI surveillanc e may be appropriate for women with more than 20% lifetime risk of developing breast cancer as deter mined by genetic testing, significant family history of the disease, or history of mantle radiation f or Hodgkins Disease. ACR Practice Guidelines 2008. TECHNICAL DOCUMENTATION: FINDING NUMBER: (1) ASSESSMENT: (1) JOB ID: [id number] [email or web address]- All Rights Reserved
== END ==
LOC: WI 10:05
PROVIDERS: ATTEND Internal Medicine
DX: Z12.31 Encounter for screening mammogram for malignant neoplasm of breast (principal)
CPT/HCPCS: 77067; G0202

== ENCOUNTER → 2018-04-26 | Outpatient (CLI) | payer MEDICARE, MEDICAID ==
--- NOTE | 2018-04-26 11:24 | RADIOLOGY REPORT (SQ) ---
EXAM DESCRIPTION: CT CHEST WITHOUT COMPLETED DATE/TIME: 04/26/2018 10:32 am REASON FOR STUDY: PULMONARY NODULE R91.1 SOLITARY PULMONARY NODULE COMPARISON: 11/29/2016 TECHNIQUE: CT scan performed of the chest without intravenous contrast. Images reviewed with lung, soft tissue and bone windows. Reconstructed coronal and sagittal MPR images reviewed. All images st ored on PACS. All CT scanners at this facility use dose modulation, iterative reconstruction, and/or weight based d osing when appropriate to reduce radiation dose to as low as reasonably achievable (ALARA). [facility]: Dose Right [facility]: CareDose [facility]: Dose Right [facility]: Teradose 4D [facility]: Smart Technologies RADIATION DOSE: CT Rad equipment meets quality standard of care and radiation dose reduction techniq ues were employed. CTDIvol: 19.4 mGy. DLP: 754 mGy-cm. mGy. LIMITATIONS: No technical limitations. FINDINGS: LUNGS AND PLEURA: Mild chronic interstitial changes are suggested in the left base. No pu lmonary nodule is appreciated. No acute infiltrates are seen. There is no pleural effusion. HILAR AND MEDIASTINAL STRUCTURES: No identified masses or abnormal nodes. No obvious aneurysm. HEART AND VASCULAR STRUCTURES: No aneurysm. No pericardial effusion. UPPER ABDOMEN: There is large parapelvic cyst in the left kidney. THYROID AND OTHER SOFT TISSUES: No masses. No adenopathy. BONES: No significant finding. HARDWARE: None in the chest. OTHER: No other significant findings. IMPRESSION: No pulmonary nodule is seen. There are mild chronic interstitial changes in the left lo wer lobe. There is a large parapelvic cyst in the left kidney. TECHNICAL DOCUMENTATION: JOB ID: [id number] Quality ID # [id number]: Final reports with documentation of one or more dose reduction techniques (e.g., Au tomated exposure control, adjustment of the mA and/or kV according to patient size, use of iterative reconstruction technique) 2010 [email or web address]- All Rights Reserved Reading location - IP/workstation name: [email or web address]
== END ==
LOC: RAD 10:20
PROVIDERS: ATTEND Internal Medicine Critical Care Medicine
DX: R91.1 Solitary pulmonary nodule (principal)
CPT/HCPCS: 71250

== ENCOUNTER → 2018-05-10 | Outpatient (CLI) | payer MEDICARE, MEDICAID ==
--- NOTE | 2018-05-10 11:35 | WOMENS IMAGING REPORT ---
EXAM DESCRIPTION: BILAT SCREENING MAMMO W/CAD COMPLETED DATE/TIME: 05/10/2018 10:28 am REASON FOR STUDY: BILATERAL SCREENING MAMMO /Z12.31 Z12.31 ENCNTR SCREEN MAMMOGRAM FOR MALIGNANT NE OPLASM OF KATJA COMPARISON: [id number] TECHNIQUE: Standard craniocaudal and mediolateral oblique views of each breast recorded using payByMobilea l acquisition. LIMITATIONS: None. FINDINGS: Findings present which are benign by mammographic criteria. No suspicious masses, calcifi cations or architectural distortion. Pertinent benign findings: Stable asymmetry right. Read with the assistance of CAD. .[facility] - R2 Cenova Version 1.3 .[facility] Imaging - R2 Cenova Version 1.3 .[facility] Imaging - R2 Cenova Version 2.4 .[facility] [place] R2 Cenova Version 2.4 .[facility] - R2 Machine Fancy Stitcher Version 9.2 Benign mammographic findings may include one or more of the following: Smooth masses, popcorn/rim/co arse calcifications, asymmetries, post-procedure changes, and lesions with long-standing stability. IMPRESSION: BENIGN MAMMOGRAPHIC FINDINGS. BIRADS 2 BREAST DENSITY: a. The breasts are almost entirely fatty. BIRAD: 2 BENIGN FINDING(S) RECOMMENDATION: ROUTINE SCREENING COMMENT: The patient has been notified of the results by letter per SA requirements. Additional no tification policies are in place for contacting patient with suspicious or incomplete findings. Quality ID #225: The [employer] recommends an annual screening mammogram for women aged 40 years or over. This facility utilizes a reminder system to ensure that all patients receive reminder letters, and/or direct phone calls for appointments. This includes reminders for routine scr eening mammograms, diagnostic mammograms, or other Breast Imaging Interventions when appropriate. Th is patient will be placed in the appropriate reminder system. The [employer] (ACR) has developed recommendations for screening MRI of the breast s in certain patient populations, to be used in conjunction with mammography. Breast MRI surveillanc e may be appropriate for women with more than 20% lifetime risk of developing breast cancer as deter mined by genetic testing, significant family history of the disease, or history of mantle radiation f or Hodgkins Disease. ACR Practice Guidelines 2008. TECHNICAL DOCUMENTATION: FINDING NUMBER: (1) ASSESSMENT: (1) JOB ID: [id number] [employer]- All Rights Reserved Reading location - IP/workstation name: [facility] [[email or web address]]
== END ==
LOC: WI 08:53
PROVIDERS: ATTEND Internal Medicine
DX: Z12.31 Encounter for screening mammogram for malignant neoplasm of breast (principal)
CPT/HCPCS: 77067

== ENCOUNTER → 2018-11-12 | Outpatient (CLI) | payer MEDICARE, MEDICAID ==
--- NOTE | 2018-11-12 16:42 | RADIOLOGY REPORT (SQ) ---
EXAM DESCRIPTION: SHOULDER LEFT 2 OR MORE VIEWS COMPLETED DATE/TIME: 11/12/2018 2:44 pm REASON FOR STUDY: M19.012 PRIMARY OSTEOARTHRITIS, LEFT SHOULDER M19.012 PRIMARY OSTEOARTHRITIS, LEF T SHOULDER COMPARISON: None. NUMBER OF VIEWS: Three views. TECHNIQUE: Internal rotation, external rotation, and Y view images acquired of the left shoulder. LIMITATIONS: None. FINDINGS: MINERALIZATION: Normal. BONES: No acute fracture or dislocation. Mild glenohumeral and acromioclavicular arthrosis. . JOINTS: No dislocation. VISUALIZED LUNGS AND RIBS: No pneumothorax. No rib fracture. SOFT TISSUES: No radiopaque foreign body. OTHER: No other significant finding. IMPRESSION: NO RADIOGRAPHIC EVIDENCE OF ACUTE INJURY.Mild glenohumeral and acromioclavicular arthros is. TECHNICAL DOCUMENTATION: JOB ID: [id number] [place]-72 2010 [employer]- All Rights Reserved Reading location - IP/workstation name: [email or web address]
== END ==
LOC: RAD 14:30
PROVIDERS: ATTEND Internal Medicine
DX: M19.012 Primary osteoarthritis, left shoulder (principal)

== ENCOUNTER 2019-02-16 18:23 | Inpatient (IN) | payer MEDICARE, MEDICAID ==
[2019-02-16] MEDS ORDERED: MAGNESIUM SULFATE/D5W 2 GM/200 ML RTUPB IV ONE (18:27)
[2019-02-16] MEDS ORDERED: ONDANSETRON HCL INJ/PF 4 MG/2 ML SDV ONE (18:35)
[2019-02-16] MEDS ORDERED: ALBUTEROL SULFATE 0.083% NEB 2.5 MG/3 ML AMPUL NEB ONE ×5 (18:36→22:00)
[2019-02-16] MEDS ORDERED: FAMOTIDINE INJ/PF 20 MG/2 ML SDV IV ONE (18:39)
[2019-02-16] MEDS ORDERED: EPINEPHRINE INJ/PF 1 MG/1 ML AMPULE ONE (18:39)
[2019-02-16] MEDS ORDERED: DIPHENHYDRAMINE HCL 50 MG/ML VIAL ONE (18:40)
[2019-02-16 19:22] LABS: ABSOLUTE BASOPHILS # (AUTO) 0.1 10^3/uL (0.0-0.2); ABSOLUTE EOSINOPHILS # (AUTO) 1.7 10^3/uL (0.0-0.6); ABSOLUTE LYMPHOCYTES (AUTO) 5.8 10^3/uL (0.5-4.7); ABSOLUTE MONOCYTES (AUTO) 1.7 10^3/uL (0.1-1.4); ABSOLUTE NEUT (AUTO) 8.4 10^3/uL (1.7-8.2); BASOPHILS % (AUTO) 0.5 % (0-2); EOSINOPHILS % (AUTO) 9.8 % (0-6); HEMATOCRIT 39.9 % (36.0-47.0); HEMOGLOBIN 12.7 g/dL (12.0-15.5); LYMPHOCYTES % (AUTO) 32.6 % (13-45); MEAN CORPUSCULAR HEMOGLOBIN 29.3 pg (27.0-33.4); MEAN CORPUSCULAR VOLUME 92 fl (80-97); MONOCYTES % (AUTO) 9.5 % (3-13); PLATELET COUNT 243 10^3/uL (150-450); RED BLOOD COUNT 4.35 10^6/uL (3.72-5.28); RED CELL DISTRIBUTION WIDTH 14.5 % (11.5-14.0); SEGMENTED NEUTROPHILS % (AUTO) 47.6 % (42-78); TOTAL CELLS COUNTED % (AUTO) 100 %; WHITE BLOOD COUNT 17.7 10^3/uL (4.0-10.5)
[2019-02-16 19:23] LABS: PROTHROMBIN TIME 12.1 SEC (11.4-15.4)
[2019-02-16 19:25] LABS: ALBUMIN 4.2 g/dL (3.5-5.0); ALKALINE PHOSPHATASE 88 U/L (38-126); ANION GAP 10 (5-19); ASPARTATE AMINO TRANSFERASE 28 U/L (14-36); BILIRUBIN,DIRECT 0.2 mg/dL (0.0-0.4); BILIRUBIN,TOTAL 0.7 mg/dL (0.2-1.3); BLOOD UREA NITROGEN 35 mg/dL (7-20); CALCIUM 9.5 mg/dL (8.4-10.2); CARBON DIOXIDE 29 mmol/L (22-30); CHLORIDE 102 mmol/L (98-107); GLUCOSE 126 mg/dL (75-110)
--- NOTE | 2019-02-16 19:39 | RADIOLOGY REPORT (SQ) ---
EXAM DESCRIPTION: CHEST SINGLE VIEW COMPLETED DATE/TIME: 02/16/2019 7:18 pm REASON FOR STUDY: wheezing, SOB COMPARISON: 12/09/2016 TECHNIQUE: Single frontal radiographic view of the chest acquired. NUMBER OF VIEWS: One view. LIMITATIONS: None. FINDINGS: LUNGS AND PLEURA: No pneumothorax. No consolidation or pleural effusion. MEDIASTINUM AND HILAR STRUCTURES: Stable. HEART AND VASCULAR STRUCTURES: Stable. BONES: No acute findings. HARDWARE: None in the chest. OTHER: No other significant finding. IMPRESSION: NO ACUTE FINDINGS. TECHNICAL DOCUMENTATION: JOB ID: [id number] [place]-72 2010 [employer]- All Rights Reserved Reading location - IP/workstation name: [email or web address]
[2019-02-16 20:38] LABS: VENOUS BLOOD BASE EXCESS -2.1 mmol/L; VENOUS BLOOD PCO2 52.8 mmHg (35-63); VENOUS BLOOD PH 7.29 (7.30-7.42)
[2019-02-16 20:50] LABS: APPEARANCE,URINE CLEAR; BILIRUBIN,URINE NEGATIVE (NEGATIVE); COLOR,URINE YELLOW; GLUCOSE, URINE NEGATIVE (NEGATIVE); KETONES,URINE NEGATIVE (NEGATIVE); LEUKOCYTE ESTERASE,URINE NEGATIVE (NEGATIVE); NITRITE,URINE NEGATIVE (NEGATIVE); PROTEIN,URINE NEGATIVE (NEGATIVE); URINE SPECIFIC GRAVITY 1.012; UROBILINOGEN,URINE NEGATIVE mg/dL (<2.0)
--- NOTE | 2019-02-16 22:02 | EKG REPORT ---
SEVERITY:- ABNORMAL ECG - SINUS TACHYCARDIA NONSPECIFIC LATERAL ST-T CHANGES : Confirmed by: Jose Guadalupe Sifuentes MD 16-Feb-2019 22:02:14
--- NOTE | 2019-02-16 22:57 | ER Document Report ---
ED General - General Chief Complaint: Respiratory Distress Stated Complaint: SHORTNESS OF BREATH Time Seen by Provider: 02/16/19 18:47 Notes: 68-year-old female presents emergency department via EMS for extreme shortness of breath. Patient has a history of asthma and states that for the past 2 days her breathing has been getting worse since her sister used a new cleaning product. Patient was given 2 g of magnesium and 125 mg of Solu-Medrol IV by EMS and was also given 3 DuoNeb breathing treatments and an albuterol breathing treatment. They tried to place her on CPAP but she could not tolerate it. She did initially have some hypoxia for EMS. Denies any history of intubation in the past. TRAVEL OUTSIDE OF THE [place] IN LAST 30 DAYS: No - Related Data Allergies/Adverse Reactions: Penicillins Allergy (Intermediate, Verified 11/26/16 15:02) Nausea Past Medical History - General Information source: Patient, Emergency Med Personnel - Social History Smoking Status: Never Smoker Chew tobacco use (# tins/day): No Frequency of alcohol use: None Drug Abuse: None Family History: Reviewed & Not Pertinent Patient has suicidal ideation: No Patient has homicidal ideation: No - Past Medical History Cardiac Medical History: Reports: Hx Hypercholesterolemia, Hx Hypertension Denies: Hx Coronary Artery Disease, Hx Heart Attack Pulmonary Medical History: Reports: Hx Asthma, Hx COPD, Hx Pneumonia Denies: Hx Bronchitis Neurological Medical History: Denies: Hx Cerebrovascular Accident, Hx Seizures Renal/ Medical History: Denies: Hx Peritoneal Dialysis Musculoskeletal Medical History: Denies Hx Arthritis Psychiatric Medical History: Reports: Hx Depression Past Surgical History: Reports: Hx Bowel Surgery, Hx Hysterectomy, Hx Orthopedic Surgery - Right ORIF, Hx Umbilical Hernia - Immunizations Immunizations up to date: Yes Hx Diphtheria, Pertussis, Tetanus Vaccination: Yes Hx Pneumococcal Vaccination: 10/20/11 Review of Systems - Review of Systems Constitutional: No symptoms reported Respiratory: See HPI Gastrointestinal: Vomiting - Once on the way in. -: Yes All other systems reviewed and negative Physical Exam - Vital signs Vitals: Temp Resp BP Pulse Ox 98 F 25 H 152/93 H 96 02/16/19 18:45 02/16/19 18:45 02/16/19 18:45 02/16/19 18:45 Interpretation: Hypertensive, Tachycardic, Tachypneic - Notes Notes: GENERAL: Awake, alert, anxious, appears acutely short of breath. HEAD: Normocephalic, atraumatic EYES: Pupils equal, round and reactive to light, extraocular movements intact. ENT: Oral mucosa moist, tongue midline. NECK: Full range of motion, supple, trachea midline. LUNGS: Tachypnea, diffuse expiratory wheezing, decreased air movement, appears acutely short of breath, using accessory muscles of respiration. HEART: Tachycardic rate and rhythm, no murmurs, gallops, rubs. ABDOMEN: Soft, nontender, nondistended, bowel sounds present in all 4 quadrants. EXTREMITIES: Moves all 4 extremities spontaneously, no edema, radial and dorsalis pedis pulses 2/4 bilaterally. No cyanosis. No edema NEUROLOGICAL: Alert and oriented x3, speaking in 1-2 word sentences. No slurred speech. PSYCH: Appears anxious. SKIN: Warm, Dry, urticarial lesions noted across the upper chest and back. No else noted on the body. Course - Re-evaluation Re-evalutation: 02/16/19 22:56 Patient was placed on BiPAP, had Tom been given Solu-Medrol, given the vomit ing, wheezing and finding of hives and worried about anaphylaxis, patient was given 0.3 mg of epinephrine IV, as well as Benadryl and Pepcid. Patient actually had significant improvement after this. Continued giving breathing treatment as well. Patient currently has had complete resolution of hives and no further vomiting. Patient is still on BiPAP. Patient was discussed with Dr. Martinez who agrees to accept the patient to his service for treatment of this asthma exacerbation and anaphylaxis. Chest x-ray shows no acute process, CBC shows leukocytosis at 17.7, venous blood gas as low pH at 7.29 otherwise unremarkable, CMP grossly unremarkable only slightly elevated BUN, urinalysis unremarkable, - Vital Signs Vital signs: Temp Pulse Resp BP Pulse Ox 98 F 22 H 121/78 97 02/16/19 18:45 02/16/19 21:16 02/16/19 21:16 02/16/19 21:11 - Laboratory Result Diagrams: 02/16/19 18:25 02/16/19 18:25 Laboratory results interpreted by me: 02/16/19 02/16/19 02/16/19 18:25 18:25 20:10 WBC 17.7 H RDW 14.5 H Eos % (Auto) 9.8 H Absolute Neuts (auto) 8.4 H Absolute Lymphs (auto) 5.8 H Absolute Monos (auto) 1.7 H Absolute Eos (auto) 1.7 H VBG pH BUN 35 H Est GFR (MDRD) Non-Af 54 L Glucose 126 H Urine Blood SMALL H 02/16/19 20:22 WBC RDW Eos % (Auto) Absolute Neuts (auto) Absolute Lymphs (auto) Absolute Monos (auto) Absolute Eos (auto) VBG pH 7.29 L BUN Est GFR (MDRD) Non-Af Glucose Urine Blood - EKG Interpretation by Me Additional EKG results interpreted by me: 02/16/19 22:57 EKG shows sinus tachycardia at a rate of 108, normal axis, normal intervals, no ST segment elevations or depressions, no T wave inversions per my interpretation. Critical Care Note - Critical Care Note Total time excluding time spent on procedures (mins): 55 Discharge - Discharge Clinical Impression: Acute severe exacerbation of asthma with allergic rhinitis Anaphylaxis Qualifiers: Encounter type: initial encounter Qualified Code(s): T78.2XXA - Anaphylactic shock, unspecified, initial encounter Condition: Serious Disposition: ADMITTED INPATIENT Admitting Provider: Michelle (Hospitalist) Unit Admitted: [facility]
[2019-02-17] MEDS ORDERED: RINGERS SOLUTION,LACTATED 1,000 ML IV PRN (00:31)
[2019-02-17] MEDS ORDERED: TEMAZEPAM 15 MG CAPSULE PO PRN (00:31)
[2019-02-17] MEDS ORDERED: MAG HYDROX/AL HYDROX/SIMETH SUSP 30 ML UDCUP PO PRN (00:31)
[2019-02-17] MEDS ORDERED: LEVALBUTEROL HCL NEB 0.63 MG/3 ML AMPUL NEB PRN (00:31)
[2019-02-17] MEDS ORDERED: ONDANSETRON HCL INJ/PF 4 MG/2 ML SDV IV PRN (00:31)
[2019-02-17] MEDS ORDERED: MAGNESIUM HYDROXIDE SUSP 30 ML UDCUP PO PRN (00:31)
[2019-02-17] MEDS ORDERED: NALBUPHINE HCL INJ 10 MG/1 ML AMPULE IV PRN ×3 (00:44→01:15)
[2019-02-17] MEDS ORDERED: METOPROLOL TARTRATE PF/INJ 5 MG/5 ML SDV IV PRN (00:44)
[2019-02-17] MEDS ORDERED: HYDRALAZINE HCL INJ/PF 20 MG/1 ML SDV IV PRN (00:44)
[2019-02-17 01:47] LABS: FREE T3 3.21 pg/mL (2.77-5.27); FREE T4 (FREE THYROXINE) 1.01 ng/dL (0.78-2.19)
[2019-02-17 02:00] LABS: THYROID STIMULATING HORMONE 2.36 uIU/mL (0.47-4.68)
[2019-02-17 02:10] LABS: CREATINE KINASE MB 3.26 ng/mL (<4.55)
[2019-02-17 02:12] LABS: TROPONIN I 0.053 ng/mL
[2019-02-17] MEDS ORDERED: METHYLPREDNISOLONE INJ 40 MG/1 ML SDV IV SCH (06:00)
--- NOTE | 2019-02-17 06:02 | PDOC H&P ---
History of Present Illness Admission Date/PCP: 02/16/19 23:05 Michael Dupont MD Patient complains of: Allergic reaction History of Present Illness: MEL SHAY is a 68 year old female who presents the emergency room with a 2-day history of an allergic reaction. She admits that 2 days ago her sister used a new cleaning product and since that time she has had progressively worsening dyspnea as well as itching. Her symptoms became severe today and she called EMS to bring her to the hospital. She denies other associated or accompanying signs and symptoms. She admits numerous prior similar episodes with asthma exacerbations. She has not identified any additional aggravating or ameliorating factors for her allergic reaction symptoms. EMS found her to be hypoxic and administered nebulizer therapy with DuoNeb x3 and Solu-Medrol 125 mg IV plus magnesium 2 g IV. EMS attempted the use of CPAP but the patient could not tolerate the mask. In the emergency room the patient was found to have severe work of breathing and was placed on BiPAP with good results. She was also noted to have hives which diminished following administration of epinephrine, Benadryl, Pepcid and intravenous steroids. The patient was subsequently admitted to the hospital for further evaluation and treatment. Past Medical History Cardiac Medical History: Reports: Hyperlipidema, Hypertension Denies: Coronary Artery Disease, Myocardial Infarction Pulmonary Medical History: Reports: Asthma, Pneumonia, Respiratory Failure Denies: Bronchitis, Chronic Obstructive Pulmonary Disease (COPD) EENT Medical History: Reports: Nose - Allergic rhinitis Denies: Cataracts, Ears - Hearing aids Neurological Medical History: Denies: Hemorrhagic CVA, Ischemic CVA, Seizures Endocrine Medical History: Reports: Obesity Denies: Diabetes Mellitus Type 1, Diabetes Mellitus Type 2, Hyperthyroidism, Hypothyroidism Renal/ Medical History: Denies: Chronic Kidney Disease, Nephrolithiasis Malignancy Medical History: Reports: None GI Medical History: Reports: Gastroesophageal Reflux Disease, Other - Malabsorption syndrome Denies: Cirrhosis, Crohn's Disease, Hepatitis, Ulcerative Colitis Musculoskeltal Medical History: 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 Denies: Gout Skin Medical History: Denies: Eczema, Psoriasis Psychiatric Medical History: Reports: Depression Denies: Alcohol Dependency, Substance Abuse, Tobacco Dependency Traumatic Medical History: Reports: None Hematology: Denies: Anemia, Bleeding Tendencies Infectious Medical History: Reports: None Past Surgical History Past Surgical History: Reports: Hysterectomy, Orthopedic Surgery - Right hip ORIF Social History Information Source: Patient Lives with: Spouse/Significant other Smoking Status: Never Smoker Frequency of Alcohol Use: None Hx Recreational Drug Use: No Drugs: None Hx Prescription Drug Abuse: No - Advance Directive Resuscitation Status: Full Code Surrogate healthcare decision maker:: Diane Shay Family History Family History: CAD, CVA, DM, Malignancy Parental Family History Reviewed: Yes Children Family History Reviewed: No Sibling(s) Family History Reviewed.: Yes Medication/Allergy Home Medications: Citalopram Hydrobromide [Celexa 20 mg Tablet] 20 mg PO DAILY 11/27/16 Ergocalciferol (Vitamin D2) [Drisdol 50,000 unit (1.25MG) Capsule] 50,000 unit PO WE@10 11/27/16 Ipratropium/Albuterol Sulfate [Duoneb 3 ml Ampul] 3 ml NEB RTQID 11/27/16 Lisinopril/Hydrochlorothiazide [Lisinopril-Hctz 20-25 mg Tab] 1 tab PO DAILY 11/27/16 Loratadine [Claritin 10 mg Tablet] 10 mg PO DAILY 11/27/16 Lovastatin [Mevacor] 20 mg PO DAILY 11/27/16 Omeprazole 40 mg PO DAILY 11/27/16 Oxycodone HCl/Acetaminophen [Percocet 5-325 mg Tablet] 1 tab PO Q8HP PRN 11/27/16 Potassium Chloride [K-Tab ER] 20 meq PO [id number] 11/27/16 Budesonide/Formoterol Fumarate [Symbicort HFA 160-4.5 mcg Inhaler 6 gm] 2 puff IH Q12 #1 inhaler 12/04/16 Fluticasone Propionate [Flonase Nasal [place] 50 Mcg/[place] 16 gm] 1 spray NASL Q12 #1 spray.pump 12/04/16 Montelukast Sodium [Singulair 10 mg Tablet] 10 mg PO QHS #30 tablet 12/04/16 Prednisone [Deltasone 20 mg Tablet] 40 mg PO BID #30 tablet 12/04/16 Prednisone [Deltasone 20 mg Tablet] 3 tab PO DAILY 5 Days tablet 03/03/17 Allergies/Adverse Reactions: Penicillins Allergy (Intermediate, Verified 11/26/16 15:02) Nausea Review of Systems Constitutional: ABSENT: chills, fever(s) Eyes: ABSENT: visual disturbances, other - Eye pain Ears: ABSENT: hearing changes, other - Ear pain Nose, Mouth, and Throat: ABSENT: mouth pain, sore throat Cardiovascular: ABSENT: chest pain, palpitations Respiratory: PRESENT: dyspnea, other - Wheezing. ABSENT: cough Gastrointestinal: ABSENT: abdominal pain, constipation, diarrhea, nausea, vomiting Genitourinary: ABSENT: dysuria, hematuria Musculoskeletal: PRESENT: back pain - Chronic back pain Integumentary: PRESENT: as per HPI, pruritus, rash - Hives Neurological: ABSENT: confusion, convulsions, focal weakness, memory loss, syncope Psychiatric: ABSENT: anxiety, depression Endocrine: ABSENT: cold intolerance, heat intolerance Hematologic/Lymphatic: ABSENT: easy bleeding, easy bruising Allergic/Immunologic: ABSENT: seasonal rhinorrhea Physical Exam Vital Signs: Temp Pulse Resp BP Pulse Ox 98 F 19 138/69 H 100 02/16/19 18:45 02/16/19 23:51 02/16/19 23:51 02/16/19 23:51 Intake & Output 02/15/19 02/16/19 02/17/19 23:59 23:59 23:59 Intake Total 200 Balance 200 General appearance: PRESENT: no acute distress, cooperative, morbidly obese, other - On BiPAP Head exam: PRESENT: atraumatic, normocephalic Eye exam: PRESENT: conjunctiva pink. ABSENT: conjunctival injection, scleral icterus Ear exam: PRESENT: normal external ear exam. ABSENT: bleeding, drainage Mouth exam: PRESENT: dry mucosa, neck supple Neck exam: ABSENT: thyromegaly, tracheal deviation Respiratory exam: PRESENT: prolonged expiratory phas - Moderately prolonged expiratory phase present throughout all corral, symmetrical, wheezes - Marked expiratory wheezes present throughout all corral, other - On BiPAP Cardiovascular exam: PRESENT: RRR. ABSENT: clicks, gallop, rubs Pulses: PRESENT: normal radial pulses, normal dorsalis pedis pul Vascular exam: PRESENT: normal capillary refill. ABSENT: pallor GI/Abdominal exam: PRESENT: normal bowel sounds, soft Rectal exam: PRESENT: deferred Extremities exam: ABSENT: joint swelling, pedal edema Musculoskeletal exam: ABSENT: deformity, dislocation Neurological exam: PRESENT: alert, oriented to person, oriented to place, oriented to time, oriented to situation, CN II-XII grossly intact. ABSENT: motor sensory deficit Psychiatric exam: PRESENT: appropriate affect, normal mood Skin exam: PRESENT: dry, intact, urticaria - Minimal urticarial rash with minimal excoriation noted primarily on the upper anterior torso at the time of my evaluation after receiving Benadryl and Solu-Medrol in the ER., warm. ABSENT: jaundice, rash Results Laboratory Results: 02/16/19 18:25 02/16/19 18:25 02/16/19 02/16/19 02/16/19 18:25 18:25 18:25 WBC 17.7 H RBC 4.35 Hgb 12.7 Hct 39.9 MCV 92 MCH 29.3 MCHC 32.0 RDW 14.5 H Plt Count 243 Seg Neutrophils % 47.6 VBG pH VBG pCO2 VBG HCO3 VBG Base Excess Sodium 140.8 Potassium 4.0 Chloride 102 Carbon Dioxide 29 Anion Gap 10 BUN 35 H Creatinine 1.01 Est GFR ( Amer) > 60 Glucose 126 H Lactic Acid 1.5 Calcium 9.5 Total Bilirubin 0.7 AST 28 Alkaline Phosphatase 88 Total Protein 7.0 Albumin 4.2 Urine Color Urine Appearance Urine pH Ur Specific [place] Urine Protein Urine Glucose (UA) Urine Ketones Urine Blood Urine Nitrite Ur Leukocyte Esterase Urine WBC (Auto) Urine RBC (Auto) 02/16/19 02/16/19 20:10 20:22 WBC RBC Hgb Hct MCV MCH MCHC RDW Plt Count Seg Neutrophils % VBG pH 7.29 L VBG pCO2 52.8 VBG HCO3 25.0 VBG Base Excess -2.1 Sodium Potassium Chloride Carbon Dioxide Anion Gap BUN Creatinine Est GFR ( Amer) Glucose Lactic Acid Calcium Total Bilirubin AST Alkaline Phosphatase Total Protein Albumin Urine Color YELLOW Urine Appearance CLEAR Urine pH 5.0 Ur Specific [place] 1.012 Urine Protein NEGATIVE Urine Glucose (UA) NEGATIVE Urine Ketones NEGATIVE Urine Blood SMALL H Urine Nitrite NEGATIVE Ur Leukocyte Esterase NEGATIVE Urine WBC (Auto) 0 Urine RBC (Auto) 1 02/16/19 18:25 Troponin I < 0.012 Impressions: Chest X-Ray 02/16/19 18:48 IMPRESSION: NO ACUTE FINDINGS. Assessment and Plan - Diagnosis (1) Status asthmaticus Qualifiers: Asthma severity: severe Asthma persistence: persistent Qualified Code(s): J45.52 - Severe persistent asthma with status asthmaticus Is this a current diagnosis for this admission?: Yes Plan: Patient will be treated with ongoing use of BiPAP and nebulizer therapy. An intense pulmonary toilet utilizing Xopenex, Atrovent and Pulmicort via nebulizer will be employed. Intravenous Solu-Medrol will be continued and patient will be observed closely on IMCU. Oxygen supplementation will be provided to maintain an O2 sat greater than 93%. (2) Acute respiratory failure with hypoxia Is this a current diagnosis for this admission?: Yes Plan: Patient will be treated with oxygen supplementation utilizing BiPAP initially and eventually downgrading to nasal cannula oxygen in order to support a oxygen saturation greater than 93%. (3) Urticaria Is this a current diagnosis for this admission?: Yes Plan: Patient's urticaria will be treated with intravenous Solu-Medrol and close observation. Should the patient's allergy symptoms worsen she may require additional treatment with epinephrine. (4) Hypertension Qualifiers: Hypertension type: essential hypertension Qualified Code(s): I10 - Essential (primary) hypertension Is this a current diagnosis for this admission?: Yes Plan: Patient be continued on her current antihypertensive regimen. Her blood pressure be monitored closely throughout her hospital course. (5) Hyperlipidemia Qualifiers: Hyperlipidemia type: unspecified Qualified Code(s): E78.5 - Hyperlipidemia, unspecified Is this a current diagnosis for this admission?: Yes Plan: Patient will be continued on her current anti-lipid therapeutic regiment. A lipid profile will be obtained to assess efficacy of current therapy. - Time Time Spent with patient: 25-34 minutes Medications reviewed and adjusted accordingly: Yes Anticipated discharge: Home - Inpatient Certification Based on my medical assessment, after consideration of the patient's comorbidities, presenting symptoms, or acuity I expect that the services needed warrant INPATIENT care.: Yes I certify that my determination is in accordance with my understanding of Medicare's requirements for reasonable and necessary INPATIENT services [42 CFR 412.3e].: Yes Medical Necessity: Need Close Monitoring Due to Risk of Patient Decompensation, Need For IV Fluids, Need For Continuous Telemetry Monitoring, Need for Nebulizer Therapy and Monitoring of Response, Risk of Complication if Not Cared For in H ospital
[2019-02-17] MEDS: HEPARIN SOD (PORCINE) 5,000 UNIT/ML 1 ML VIAL SUBCUT SCH ×3 (06:03→21:22)
[2019-02-17 07:32] LABS: CREATINE KINASE 171 U/L (30-135); TRIGLYCERIDES 122 mg/dL (<150)
[2019-02-17 07:51] LABS: CREATINE KINASE MB 3.79 ng/mL (<4.55); TROPONIN I 0.044 ng/mL
[2019-02-17 07:54] LABS: DIRECT LDL 51 mg/dL (<100)
[2019-02-17] MEDS ORDERED: IPRATROPIUM BROMIDE 0.02% NEB 0.5 MG/2.5 ML AMPUL NEB SCH (08:00)
[2019-02-17] MEDS ORDERED: LEVALBUTEROL HCL NEB 1.25 MG/3 ML AMPUL NEB SCH (08:00)
[2019-02-17] MEDS: BUDESONIDE NEB 0.5 MG/2 ML AMPUL NEB SCH ×2 (08:16→20:12)
[2019-02-17] MEDS: FAMOTIDINE 20 MG TABLET PO SCH ×2 (09:31→21:22)
[2019-02-17] MEDS: DOCUSATE SODIUM 100 MG CAPSULE PO SCH ×2 (09:31→17:39)
[2019-02-17] MEDS ORDERED: ALBUTEROL SULFATE 0.083% NEB 2.5 MG/3 ML AMPUL NEB PRN (11:21)
[2019-02-17] MEDS ORDERED: LISINOPRIL 10 MG TABLET PO SCH (11:24)
[2019-02-17] MEDS ORDERED: OXYCODONE-ACETAMINOPHEN 5-325 MG TABLET PO PRN (11:24)
--- NOTE | 2019-02-17 11:30 | PDOC PROGRESS REPORT ---
Subjective Progress Note for:: 02/17/19 Subjective:: 02/16: MEL SHAY is a 68 year old female who presents the emergency room with a 2-day history of an allergic reaction. She admits that 2 days ago her sister used a new cleaning product and since that time she has had progressively worsening dyspnea as well as itching. Her symptoms became severe today and she called EMS to bring her to the hospital. She denies other associated or accompanying signs and symptoms. She admits numerous prior similar episodes with asthma exacerbations. She has not identified any additional aggravating or ameliorating factors for her allergic reaction symptoms. EMS found her to be hypoxic and administered nebulizer therapy with DuoNeb x3 and Solu-Medrol 125 mg IV plus magnesium 2 g IV. EMS attempted the use of CPAP but the patient could not tolerate the mask. In the emergency room the patient was found to have stephon re work of breathing and was placed on BiPAP with good results. She was also noted to have hives which diminished following administration of epinephrine, Benadryl, Pepcid and intravenous steroids. The patient was subsequently admitted to the hospital for further evaluation and treatment. 02/17: Patient feels better. She still wheezing slightly. She is on oxygen chronically at home. She apparently moved from [place] few years ago and since then she has had issues with wheezing and allergies. She mentions that her sister is spraying something in the bathroom over the past few days and this is what exacerbated her condition. Reason For Visit: STATUS ASTHMATICUS Physical Exam Vital Signs: Temp Pulse Resp BP Pulse Ox 97.7 F 110 H 18 139/69 H 96 02/17/19 08:41 02/17/19 08:41 02/17/19 08:41 02/17/19 08:41 02/17/19 08:41 Intake & Output 02/16/19 02/17/19 02/18/19 06:59 06:59 06:59 Intake Total 800 Output Total 625 Balance 175 Weight 237 lb 7.005 oz Exam: Patient is no acute distress Alert oriented to time place person No anxiety or depression Head: atraumatic normocephalic Pupils: are equal reactive Neck: is supple and trachea is central no lymphadenopathy No pharyngeal erythema or exudates Heart: Regular rate and rhythm Lungs: Bilateral wheezing. On nasal cannula oxygen. Abdomen: nontender nondistended Neurological exam: unremarkable Musculoskeletal: No joint swelling or effusion chronic lower back pain and tenderness No suicidal or homicidal ideation Results Laboratory Results: 02/16/19 18:25 02/16/19 18:25 02/16/19 02/16/19 02/16/19 18:25 18:25 18:25 WBC 17.7 H RBC 4.35 Hgb 12.7 Hct 39.9 MCV 92 MCH 29.3 MCHC 32.0 RDW 14.5 H Plt Count 243 Seg Neutrophils % 47.6 VBG pH VBG pCO2 VBG HCO3 VBG Base Excess Sodium 140.8 Potassium 4.0 Chloride 102 Carbon Dioxide 29 Anion Gap 10 BUN 35 H Creatinine 1.01 Est GFR ( Amer) > 60 Glucose 126 H Lactic Acid 1.5 Calcium 9.5 Total Bilirubin 0.7 AST 28 Alkaline Phosphatase 88 Total Protein 7.0 Albumin 4.2 Triglycerides Cholesterol LDL Cholesterol Direct VLDL Cholesterol HDL Cholesterol TSH Free T4 Free T3 pg/mL Urine Color Urine Appearance Urine pH Ur Specific [place] Urine Protein Urine Glucose (UA) Urine Ketones Urine Blood Urine Nitrite Ur Leukocyte Esterase Urine WBC (Auto) Urine RBC (Auto) 02/16/19 02/16/19 02/16/19 18:25 20:10 20:22 WBC RBC Hgb Hct MCV MCH MCHC RDW Plt Count Seg Neutrophils % VBG pH 7.29 L VBG pCO2 52.8 VBG HCO3 25.0 VBG Base Excess -2.1 Sodium Potassium Chloride Carbon Dioxide Anion Gap BUN Creatinine Est GFR ( Amer) Glucose Lactic Acid Calcium Total Bilirubin AST Alkaline Phosphatase Total Protein Albumin Triglycerides Cholesterol LDL Cholesterol Direct VLDL Cholesterol HDL Cholesterol TSH 2.36 Free T4 1.01 Free T3 pg/mL 3.21 Urine Color YELLOW Urine Appearance CLEAR Urine pH 5.0 Ur Specific [place] 1.012 Urine Protein NEGATIVE Urine Glucose (UA) NEGATIVE Urine Ketones NEGATIVE Urine Blood SMALL H Urine Nitrite NEGATIVE Ur Leukocyte Esterase NEGATIVE Urine WBC (Auto) 0 Urine RBC (Auto) 1 02/17/19 06:55 WBC RBC Hgb Hct MCV MCH MCHC RDW Plt Count Seg Neutrophils % VBG pH VBG pCO2 VBG HCO3 VBG Base Excess Sodium Potassium Chloride Carbon Dioxide Anion Gap BUN Creatinine Est GFR ( Amer) Glucose Lactic Acid Calcium Total Bilirubin AST Alkaline Phosphatase Total Protein Albumin Triglycerides 122 Cholesterol 150.70 LDL Cholesterol Direct 51 VLDL Cholesterol 24.0 HDL Cholesterol 86 TSH Free T4 Free T3 pg/mL Urine Color Urine Appearance Urine pH Ur Specific [place] Urine Protein Urine Glucose (UA) Urine Ketones Urine Blood Urine Nitrite Ur Leukocyte Esterase Urine WBC (Auto) Urine RBC (Auto) 02/16/19 02/16/19 02/16/19 18:25 18:25 18:25 Creatine Kinase 141 H CK-MB (CK-2) 2.50 Troponin I < 0.012 Cancelled 02/17/19 02/17/19 02/17/19 01:05 01:05 06:55 Creatine Kinase 153 H 171 H CK-MB (CK-2) 3.26 Troponin I 0.053 02/17/19 06:55 Creatine Kinase CK-MB (CK-2) 3.79 Troponin I 0.044 Impressions: Chest X-Ray 02/16/19 18:48 IMPRESSION: NO ACUTE FINDINGS. Assessment and Plan - Plan Summary Plan Summary: (1) Status asthmaticus Continue DuoNeb and albuterol. Oxygen as needed. Start oral prednisone. Monitor for another day. Possible discharge tomorrow. (2) Acute respiratory failure with hypoxia Currently on nasal cannula oxygen. She chronically uses oxygen at home. (3) Urticaria Resolved. She is on steroids for asthma. (4) Hypertension Patient be continued on her current antihypertensive regimen. Her blood pressure be monitored closely throughout her hospital course. (5) Hyperlipidemia Patient will be continued on her current anti-lipid therapeutic regiment. LDL 51.
[2019-02-17] MEDS: PREDNISONE 20 MG TABLET PO SCH (11:55)
[2019-02-17] MEDS: FUROSEMIDE 20 MG TABLET PO SCH (11:55)
[2019-02-17] MEDS: IPRATROPIUM BROMIDE 0.02% NEB 0.5 MG/2.5 ML AMPUL NEB SCH ×2 (14:10→20:12)
[2019-02-17] MEDS ORDERED: MONTELUKAST SODIUM 10 MG TABLET PO SCH (22:00)
[2019-02-18] MEDS: IPRATROPIUM BROMIDE 0.02% NEB 0.5 MG/2.5 ML AMPUL NEB SCH ×2 (01:40→08:26)
[2019-02-18 05:24] LABS: HEMATOCRIT 33.4 % (36.0-47.0); MEAN CORPUSCULAR HEMOGLOBIN 29.5 pg (27.0-33.4); MEAN CORPUSCULAR VOLUME 89 fl (80-97); PLATELET COUNT 195 10^3/uL (150-450); RED BLOOD COUNT 3.74 10^6/uL (3.72-5.28); RED CELL DISTRIBUTION WIDTH 14.5 % (11.5-14.0); WHITE BLOOD COUNT 14.3 10^3/uL (4.0-10.5)
[2019-02-18 05:42] LABS: ANION GAP 7 (5-19); BLOOD UREA NITROGEN 28 mg/dL (7-20); CALCIUM 9.3 mg/dL (8.4-10.2); CARBON DIOXIDE 30 mmol/L (22-30); CHLORIDE 101 mmol/L (98-107); GLUCOSE 120 mg/dL (75-110); POTASSIUM 3.6 mmol/L (3.6-5.0)
[2019-02-18] MEDS: HEPARIN SOD (PORCINE) 5,000 UNIT/ML 1 ML VIAL SUBCUT SCH (05:48)
[2019-02-18] MEDS ORDERED: OXYCODONE-ACETAMINOPHEN 5-325 MG TABLET PO PRN (07:58)
[2019-02-18] MEDS ORDERED: ALBUTEROL SULFATE HFA (90 MCG/PUFF) 200 PUFF/8.5 GM MDI IH PRN (07:58)
[2019-02-18] MEDS ORDERED: (PENDING PHARMACY ID) (Potassium Chloride [K-Tab Er] 20 MEQ) PO SCH (08:00)
[2019-02-18] MEDS ORDERED: FUROSEMIDE 20 MG TABLET PO SCH (08:00)
[2019-02-18] MEDS: BUDESONIDE NEB 0.5 MG/2 ML AMPUL NEB SCH (08:26)
[2019-02-18] MEDS ORDERED: POTASSIUM CHLORIDE 10 MEQ CAPSULE.ER PO SCH (09:00)
[2019-02-18] MEDS: FUROSEMIDE 20 MG TABLET PO SCH (09:17)
[2019-02-18] MEDS: FAMOTIDINE 20 MG TABLET PO SCH (09:17)
[2019-02-18] MEDS: DOCUSATE SODIUM 100 MG CAPSULE PO SCH (09:17)
[2019-02-18] MEDS: PREDNISONE 20 MG TABLET PO SCH (09:17)
[2019-02-18 09:22] VITALS: BP 117/68
[2019-02-18] MEDS ORDERED: CITALOPRAM HYDROBROMIDE 20 MG TABLET PO SCH (10:00)
[2019-02-18] MEDS ORDERED: HYDROCHLOROTHIAZIDE 25 MG TABLET PO SCH (10:00)
[2019-02-18] MEDS ORDERED: (PENDING PHARMACY ID) (Lovastatin [Mevacor] 20 MG) PO SCH (10:00)
[2019-02-18] MEDS ORDERED: MULTIVITAMIN TABLET PO SCH (10:00)
[2019-02-18] MEDS ORDERED: (PENDING PHARMACY ID) (Lisinopril/Hydrochlorothiazide [Lisinopril-Hctz 20-25 Mg Tab] 1 TAB PO SCH (10:00)
[2019-02-18] MEDS ORDERED: LISINOPRIL 10 MG TABLET PO SCH (10:00)
[2019-02-18] MEDS ORDERED: PANTOPRAZOLE SODIUM 40 MG TABLET.DR PO SCH (10:00)
[2019-02-18] MEDS ORDERED: (PENDING PHARMACY ID) (Tiotropium Bromide [Spiriva Respimat] 2 PUFF) IH SCH (10:00)
--- NOTE | 2019-02-18 10:49 | PDOC DISCHARGE SUMMARY ---
General - Admit/Disc Date/PCP Admission Date/Primary Care Provider: 02/16/19 23:05 Discharge Date: 02/18/19 - Additional Information Resuscitation Status: Full Code Discharge Diet: As Tolerated Discharge Activity: Activity As Tolerated Prescriptions: Albuterol Sulfate [Albuterol Sulfate Hfa] 2 puff IH Q6HP PRN #1 ea PRN Reason: wheezing/sob Prednisone [Deltasone 20 mg Tablet] 40 mg PO DAILY #10 tablet Budesonide [Pulmicort Neb 0.5 mg/2 ml Ampul] 0.5 mg NEB RTBID #60 ampul.neb Albuterol Sulfate [Ventolin 0.083% Neb 2.5 mg/3 mL Ampul] 2.5 mg NEB RTQ2HP PRN #60 vial.neb PRN Reason: Home Medications: Citalopram Hydrobromide [Celexa 20 mg Tablet] 20 mg PO DAILY 11/27/16 Lisinopril/Hydrochlorothiazide [Lisinopril-Hctz 20-25 mg Tab] 1 tab PO DAILY 11/27/16 Lovastatin [Mevacor] 20 mg PO DAILY 11/27/16 Omeprazole 40 mg PO DAILY 11/27/16 Oxycodone HCl/Acetaminophen [Percocet 5-325 mg Tablet] 1 tab PO Q8HP PRN 11/27/16 Potassium Chloride [K-Tab ER] 20 meq PO ACBRKFST 11/27/16 Furosemide [Lasix 20 mg Tablet] 20 mg PO QAM 02/17/19 Multivitamin [Tab-A-Cesar (Multiple Vitamin) Tablet] 1 tab PO DAILY 02/17/19 Tiotropium [place] [Spiriva Respimat] 2 puff IH DAILY 02/17/19 Albuterol Sulfate [Albuterol Sulfate Hfa] 2 puff IH Q6HP PRN #1 ea 02/18/19 Albuterol Sulfate [Ventolin 0.083% Neb 2.5 mg/3 mL Ampul] 2.5 mg NEB RTQ2HP PRN #60 vial.neb 02/18/19 Budesonide [Pulmicort Neb 0.5 mg/2 ml Ampul] 0.5 mg NEB RTBID #60 ampul.neb 02/18/19 Prednisone [Deltasone 20 mg Tablet] 40 mg PO DAILY #10 tablet 02/18/19 History of Present Illness History of Present Illness: 02/16: MEL SHAY is a 68 year old female who presents the emergency room with a 2-day history of an allergic reaction. She admits that 2 days ago her sister used a new cleaning product and since that time she has had progressively worsening dyspnea as well as itching. Her symptoms became severe today and she called EMS to bring her to the hospital. She denies other associated or accompanying signs and symptoms. She admits numerous prior similar episodes with asthma exacerbations. She has not identified any additional aggravating or ameliorating factors for her allergic reaction symptoms. EMS found her to be hypoxic and administered nebulizer therapy with DuoNeb x3 and Solu-Medrol 125 mg IV plus magnesium 2 g IV. EMS attempted the use of CPAP but the patient could not tolerate the mask. In the emergency room the patient was found to have severe work of breathing and was placed on BiPAP with good results. She was also noted to have hives which diminished following administration of epinephrine, Benadryl, Pepcid and intravenous steroids. The patient was subsequently admitted to the hospital for further evaluation and treatment. 02/17: Patient feels better. She still wheezing slightly. She is on oxygen chronically at home. She apparently moved from [place] few years ago and since then she has had issues with wheezing and allergies. She mentions that her sister is spraying something in the bathroom over the past few days and this is what exacerbated her condition. Hospital Course Hospital Course: (1) Status asthmaticus Received DuoNeb and albuterol. She was started on oral prednisone. Significantly improved and wants to go home. Will discharge on oral prednisone and will add inhaled steroids. Should follow-up with PCP after discharge (2) Acute respiratory failure with hypoxia Is chronically on oxygen at home. She is back to her baseline. (3) Urticaria Resolved. She is on steroids for asthma. (4) Hypertension Patient continued on her current antihypertensive regimen. (5) Hyperlipidemia Patient continued on her current anti-lipid therapeutic regiment. LDL 51. Physical Exam Vital Signs: Temp Pulse Resp BP Pulse Ox 97.5 F 94 18 117/68 99 02/18/19 09:19 02/18/19 09:19 02/18/19 09:19 02/18/19 09:19 02/18/19 09:19 Intake & Output 0902/18/19 02/19/19 06:59 06:59 06:59 Intake Total 800 2063 Output Total 625 300 Balance 175 1763 Weight 237 lb 7.005 oz 238 lb 1.588 oz Exam: Patient is no acute distress Alert oriented to time place person No anxiety or depression Head: atraumatic normocephalic Pupils: are equal reactive Neck: is supple and trachea is central no lymphadenopathy No pharyngeal erythema or exudates Heart: Regular rate and rhythm Lungs: Scattered bilateral wheezing. On nasal cannula oxygen. Abdomen: nontender nondistended Neurological exam: unremarkable Musculoskeletal: No joint swelling or effusion chronic lower back pain and tenderness No suicidal or homicidal ideation Results Laboratory Results: 02/18/19 04:30 02/18/19 04:30 02/18/19 02/18/19 04:30 04:30 WBC 14.3 H RBC 3.74 Hgb 11.0 L Hct 33.4 L MCV 89 MCH 29.5 MCHC 33.0 RDW 14.5 H Plt Count 195 Sodium 137.9 Potassium 3.6 Chloride 101 Carbon Dioxide 30 Anion Gap 7 BUN 28 H Creatinine 0.75 Est GFR ( Amer) > 60 Glucose 120 H Calcium 9.3 Magnesium 2.0 02/16/19 20:10 Catheterized Urine Urine Culture - Final NO GROWTH 2 DAYS 02/16/19 02/16/19 02/16/19 18:25 18:25 18:25 Creatine Kinase 141 H CK-MB (CK-2) 2.50 Troponin I < 0.012 Cancelled 02/17/19 02/17/19 02/17/19 01:05 01:05 06:55 Creatine Kinase 153 H 171 H CK-MB (CK-2) 3.26 Troponin I 0.053 02/17/19 06:55 Creatine Kinase CK-MB (CK-2) 3.79 Troponin I 0.044 Impressions: Chest X-Ray 02/16/19 18:48 IMPRESSION: NO ACUTE FINDINGS. Qualifiers - * PATIENT BEING DISCHARGED WITH ANY OF THE FOLLOWING DIAGNOSIS: No Acute Heart Failure - Is this a Heart Failure Patient?: No
[2019-02-18] MEDS ORDERED: ATORVASTATIN CALCIUM 10 MG TABLET PO SCH (22:00)
== END 2019-02-18 13:01 | disposition home or self-care (01) | DRG 202 ==
LOC: ER 18:23 → EH 23:05 → 3S 02-17 01:40
PROVIDERS: ADMIT Emergency Medicine; ATTEND Emergency Medicine
PROC: 5A09357 Assistance with Respiratory Ventilation, Less than 24 Consecutive Hours, Continuous Positive Airway Pressure (ICD-10-PCS; principal; 2019-02-17)
DX: J45.52 Severe persistent asthma with status asthmaticus (principal); J96.01 Acute respiratory failure with hypoxia; L50.9 Urticaria, unspecified; I10 Essential (primary) hypertension; E78.5 Hyperlipidemia, unspecified; E66.9 Obesity, unspecified; K21.9 Gastro-esophageal reflux disease without esophagitis; F32.9 Major depressive disorder, single episode, unspecified; E78.00 Pure hypercholesterolemia, unspecified; E66.01 Morbid (severe) obesity due to excess calories; Z99.81 Dependence on supplemental oxygen; Z79.899 Other long term (current) drug therapy; Z88.0 Allergy status to penicillin; Z79.891 Long term (current) use of opiate analgesic; Z82.49 Family history of ischemic heart disease and other diseases of the circulatory system; Z82.3 Family history of stroke; Z83.3 Family history of diabetes mellitus
CPT/HCPCS: 36415; 71045; 80048; 80053; 80061; 81001; 82550; 82553; 82803; 83605; 83735; 84439; 84443; 84481; 84484; 85025; 85027; 85610; 87040; 87086; 93005; 93010; 94640; 94660; 96374; 96375; 99291; J0171; J1200; J1644; J2300; J2405; J2920; J3475; J3490; J7120; J7512; J7614; S0028

== ENCOUNTER → 2019-05-28 | Outpatient (CLI) | payer MEDICARE, MEDICAID ==
--- NOTE | 2019-05-28 13:43 | WOMENS IMAGING REPORT ---
EXAM DESCRIPTION: BILAT SCREENING MAMMO W/CAD COMPLETED DATE/TIME: 05/28/2019 10:14 am REASON FOR STUDY: Z12.31 SCREENING MAMMO Z12.31 ENCNTR SCREEN MAMMOGRAM FOR MALIGNANT NEOPLASM OF B RE COMPARISON: 2013 and subsequent. EXAM PARAMETERS: Standard craniocaudal and mediolateral oblique views of each breast recorded using digital acquisition. Read with the assistance of CAD. .[facility] - [employer] Systematic Theology Professor Version 9.2 LIMITATIONS: Habitus. 10 images necessary to cover the bilateral breasts. FINDINGS: Findings present which are benign by mammographic criteria. No suspicious masses, calcifi cations or architectural distortion. Pertinent benign findings: Scattered calcifications without suspicious features. Benign mammographic findings may include one or more of the following: Smooth masses, popcorn/rim/co arse calcifications, asymmetries, post-procedure changes, and lesions with long-standing stability. IMPRESSION: BENIGN MAMMOGRAPHIC FINDINGS. BIRADS 2 BREAST DENSITY: a. The breasts are almost entirely fatty. BIRAD: ASSESSMENT: 2 BENIGN FINDING(S) RECOMMENDATION: ROUTINE SCREENING COMMENT: The patient has been notified of the results by letter per SA requirements. Additional no tification policies are in place for contacting patient with suspicious or incomplete findings. Quality ID #[id number]: The [employer] recommends an annual screening mammogram for women aged 40 years or over. This facility utilizes a reminder system to ensure that all patients receive reminder letters, and/or direct phone calls for appointments. This includes reminders for routine scr eening mammograms, diagnostic mammograms, or other Breast Imaging Interventions when appropriate. Th is patient will be placed in the appropriate reminder system. TECHNICAL DOCUMENTATION: FINDING NUMBER: (1) ASSESSMENT: (1) JOB ID: [id number] [employer]- All Rights Reserved Reading location - IP/workstation name: [email or web address]
== END ==
LOC: WI 09:40
PROVIDERS: ATTEND Internal Medicine
DX: Z12.31 Encounter for screening mammogram for malignant neoplasm of breast (principal)
CPT/HCPCS: 77067

== ENCOUNTER → 2019-11-25 | Outpatient (CLI) | payer MEDICARE, MEDICAID ==
--- NOTE | 2019-11-25 15:35 | RADIOLOGY REPORT (SQ) ---
EXAM DESCRIPTION: CT CHEST WITHOUT IMAGES COMPLETED DATE/TIME: 11/25/2019 2:52 pm REASON FOR STUDY: R91.1 SOLITARY PULMONARY NODULE R91.1 SOLITARY PULMONARY NODULE COMPARISON: 04/26/2018 TECHNIQUE: CT scan performed of the chest without intravenous contrast. Images reviewed with lung, soft tissue and bone windows. Reconstructed coronal and sagittal MPR images reviewed. All images st ored on PACS. All CT scanners at this facility use dose modulation, iterative reconstruction, and/or weight based d osing when appropriate to reduce radiation dose to as low as reasonably achievable (ALARA). [facility]: Dose Right [facility]: CareDose [facility]: Dose Right [facility]: Teradose 4D [facility]: [employer] RADIATION DOSE: CT Rad equipment meets quality standard of care and radiation dose reduction techniq ues were employed. CTDIvol: 19.6 mGy. DLP: 849 mGy-cm. mGy. LIMITATIONS: No technical limitations. FINDINGS: LUNGS AND PLEURA: There are mild subpleural changes bilaterally. No focal pulmonary nodul es or consolidation. No effusions. There is mild central bronchiectasis. HILAR AND MEDIASTINAL STRUCTURES: No identified masses or abnormal nodes. No obvious aneurysm. HEART AND VASCULAR STRUCTURES: No aneurysm. No pericardial effusion. UPPER ABDOMEN: No significant changes. THYROID AND OTHER SOFT TISSUES: No masses. No adenopathy. BONES: No significant finding. HARDWARE: None in the chest. OTHER: No other significant findings. IMPRESSION: Mild subpleural interstitial changes most likely chronic. No consolidation. No discret e pulmonary nodules. TECHNICAL DOCUMENTATION: JOB ID: [id number] Quality ID # [id number]: Final reports with documentation of one or more dose reduction techniques (e.g., Au tomated exposure control, adjustment of the mA and/or kV according to patient size, use of iterative reconstruction technique) 2010 [employer]- All Rights Reserved Reading location - IP/workstation name: [email or web address]
== END ==
LOC: RAD 14:37
PROVIDERS: ATTEND Internal Medicine Critical Care Medicine
DX: R91.1 Solitary pulmonary nodule (principal); J98.4 Other disorders of lung
CPT/HCPCS: 71250

== ENCOUNTER 2020-02-02 11:01 | Inpatient (IN) | payer MEDICARE, MEDICAID ==
--- NOTE | 2020-02-02 11:14 | ER Document Report ---
ED Medical Screen (RME) - General Chief Complaint: Shortness Of Breath Stated Complaint: SHORT OF BREATH,VOMITING,DIARRHEA Time Seen by Provider: 02/02/20 11:10 Primary Care Provider: OLY PAL MD [Primary Care Provider] - Follow up as needed Mode of Arrival: Wheelchair Information source: Patient Notes: 69-year-old female presented to ED for severe shortness of breath. She was severely hypertensive in the triage area. She was wheezing audibly inspiratory and expiratory. She states she does have lung problems. She was not febrile at this time. I have contacted the charge nurse to ensure that she was sent straight to a bed. I have greeted and performed a rapid initial assessment of this patient. A comprehensive ED assessment and evaluation of the patient, analysis of test results and completion of medical decision making process will be conducted by an additional ED providers. TRAVEL OUTSIDE OF THE [place] IN LAST 30 DAYS: No - Related Data Allergies/Adverse Reactions: Penicillins Allergy (Intermediate, Verified 11/26/16 15:02) Nausea Past Medical History - Social History Family history: Reviewed & Not Pertinent - Past Medical History Cardiac Medical History: Reports: Hx Hypercholesterolemia, Hx Hypertension Denies: Hx Coronary Artery Disease, Hx Heart Attack Pulmonary Medical History: Reports: Hx Asthma, Hx Pneumonia, Hx Respiratory Failure Denies: Hx Bronchitis, Hx COPD Neurological Medical History: Denies: Hx Cerebrovascular Accident, Hx Seizures Endocrine Medical History: Denies: Hx Diabetes Mellitus Type 1, Hx Diabetes Mellitus Type 2, Hx Hyperthyroidism, Hx Hypothyroidism Renal/ Medical History: Denies: Hx Peritoneal Dialysis GI Medical History: Reports: Hx Gastroesophageal Reflux Disease. 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
[2020-02-02] MEDS ORDERED: NORMAL SALINE 1000 ML 1,000 ML IV PRN (11:31)
[2020-02-02] MEDS ORDERED: VANCOMYCIN HCL INJ 1000 MG VIAL IV ONE (11:44)
[2020-02-02] MEDS ORDERED: LEVOFLOXACIN 750 MG/D5W RTU 750 MG/150 ML RTUPB IV ONE (11:44)
[2020-02-02] MEDS ORDERED: AZITHROMYCIN INJ 500 MG VIAL IV ONE (11:44)
[2020-02-02] MEDS ORDERED: RINGERS LACTATED IV ONE (11:44)
[2020-02-02] MEDS ORDERED: MAGNESIUM SULFATE/D5W 1 GM/100 ML RTUPB IV ONE (11:48)
[2020-02-02] MEDS ORDERED: DEXAMETHASONE SOD PHOS INJ 10 MG/1 ML VIAL IV ONE (11:49)
[2020-02-02] MEDS ORDERED: IPRATROPIUM/ALBUTEROL 0.5-2.5 MG/3 ML AMPUL NEB ONE (11:49)
[2020-02-02] MEDS ORDERED: PROCHLORPERAZINE EDISYLATE INJ 10 MG/2 ML VIAL IV ONE (11:51)
--- NOTE | 2020-02-02 11:59 | RADIOLOGY REPORT (SQ) ---
EXAM DESCRIPTION: CHEST SINGLE VIEW IMAGES COMPLETED DATE/TIME: 02/02/2020 11:42 am REASON FOR STUDY: Short of breath COMPARISON: 01/16/2019 FINDINGS: One-view chest AP portable upright. Lungs are slightly hyperinflated but clear. Stable cardiomediastinal silhouette. There is cardiomeg wilbert with mild prominence of the central vascularity which looks unchanged. No pneumothorax. TECHNICAL DOCUMENTATION: JOB ID: [id number] Reading location - IP/workstation name: [email or web address]
[2020-02-02 12:41] LABS: ARTERIAL BLOOD BASE EXCESS -15.8 mmol/L; ARTERIAL BLOOD H2CO3 1.01 mmol/L (1.05-1.35); ARTERIAL BLOOD HCO3 11.8 mmol/L (20-24); ARTERIAL BLOOD O2 SATURATION 98.1 % (94-98); ARTERIAL BLOOD PCO2 33.5 mmHg (35-45); ARTERIAL BLOOD PO2 139.1 mmHg (80-100); ARTERIAL BLOOD TOTAL CO2 12.8 mmol/L (21-25)
[2020-02-02 12:43] LABS: ARTERIAL BLOOD FIO2 2L
[2020-02-02 12:45] LABS: ARTERIAL BLOOD PH 7.16 (7.35-7.45)
[2020-02-02 13:07] LABS: ABSOLUTE LYMPHOCYTES (AUTO) 2.2 10^3/uL (0.5-4.7); ABSOLUTE MONOCYTES (AUTO) 0.9 10^3/uL (0.1-1.4); ABSOLUTE NEUT (AUTO) 5.9 10^3/uL (1.7-8.2); BASOPHILS % (AUTO) 0.3 % (0-2); EOSINOPHILS % (AUTO) 10.1 % (0-6); LYMPHOCYTES % (AUTO) 21.8 % (13-45); MEAN CORPUSCULAR HGB CONC 33.4 g/dL (32.0-36.0); MEAN CORPUSCULAR VOLUME 93 fl (80-97); MONOCYTES % (AUTO) 9.3 % (3-13); PLATELET COUNT 186 10^3/uL (150-450); RED CELL DISTRIBUTION WIDTH 14.9 % (11.5-14.0); SEGMENTED NEUTROPHILS % (AUTO) 58.5 % (42-78); TOTAL CELLS COUNTED % (AUTO) 100 %; WHITE BLOOD COUNT 10.1 10^3/uL (4.0-10.5)
[2020-02-02 13:11] LABS: INTERNATIONAL RATION (INR) 0.98; PROTHROMBIN TIME 13.2 SEC (11.4-15.4)
[2020-02-02 13:22] LABS: ALBUMIN 4.1 g/dL (3.5-5.0); ALKALINE PHOSPHATASE 77 U/L (38-126); ASPARTATE AMINO TRANSFERASE 23 U/L (14-36); BILIRUBIN,DIRECT 1.1 mg/dL (0.0-0.4); BILIRUBIN,TOTAL 1.1 mg/dL (0.2-1.3); BLOOD UREA NITROGEN 103 mg/dL (7-20); CALCIUM 9.3 mg/dL (8.4-10.2); CARBON DIOXIDE 14 mmol/L (22-30); CHLORIDE 98 mmol/L (98-107); CREATINE KINASE 86 U/L (30-135); GLUCOSE 91 mg/dL (75-110); POTASSIUM 4.5 mmol/L (3.6-5.0); TOTAL PROTEIN 7.1 g/dL (6.3-8.2)
[2020-02-02 13:29] LABS: ANION GAP 22 (5-19)
[2020-02-02 13:43] LABS: A TYPE INFLUENZA AG NEGATIVE (NEGATIVE); B INFLUENZA AG NEGATIVE (NEGATIVE)
--- NOTE | 2020-02-02 15:01 | ER Document Report ---
ED General - General Chief Complaint: Flu Symptoms Stated Complaint: SHORT OF BREATH,VOMITING,DIARRHEA Time Seen by Provider: 02/02/20 11:10 Primary Care Provider: OLY PAL MD [Primary Care Provider] - Follow up as needed Mode of Arrival: Wheelchair TRAVEL OUTSIDE OF THE [place] IN LAST 30 DAYS: No - HPI Notes: Chief complaint: Nausea, vomiting, shortness of breath and generalized weakness History of present illness: 69-year-old female with history of severe asthma with chronic use of nasal O2 2 L/min at home presents now with a 5-day history of nausea, vomiting and progressively worsening weakness and shortness of breath. She denies fever. She denies sputum production. She denies he moptysis. She denies pain in chest or abdomen. She denies dysuria. She is not traveled outside the area and she has no known exposure to COVID-19. - Related Data Allergies/Adverse Reactions: Penicillins Allergy (Intermediate, Verified 02/02/20 11:21) Nausea Past Medical History - General Information source: Patient, [facility] Records - Social History Smoking Status: Never Smoker Chew tobacco use (# tins/day): Yes Family History: CAD, CVA, DM, Malignancy Patient has homicidal ideation: No - Past Medical History Cardiac Medical History: Reports: Hx Hypercholesterolemia, Hx Hypertension Denies: Hx Coronary Artery Disease, Hx Heart Attack Pulmonary Medical History: Reports: Hx Asthma, Hx Pneumonia, Hx Respiratory Failure Denies: Hx Bronchitis, Hx COPD Neurological Medical History: Denies: Hx Cerebrovascular Accident, Hx Seizures Endocrine Medical History: Denies: Hx Diabetes Mellitus Type 1, Hx Diabetes Mellitus Type 2, Hx Hyperthyroidism, Hx Hypothyroidism Renal/ Medical History: Denies: Hx Peritoneal Dialysis GI Medical History: Reports: Hx Gastroesophageal Reflux Disease. 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 HENT: Negative for sore throat. Eyes: Negative for visual changes. Cardiovascular: Negative for chest pain. Respiratory: As per HPI. Gastrointestinal: As per HPI. Genitourinary: Negative for dysuria. Musculoskeletal: Negative for back pain. Skin: Negative for rash. Neurological: Negative for headaches, focal weakness or numbness. 10 point ROS negative except as marked above and in HPI. Focal Physical Exam - Vital signs Vitals: Temp Pulse Resp BP Pulse Ox 97.8 F 106 H 20 79/46 L 97 02/02/20 11:20 02/02/20 11:20 02/02/20 11:20 02/02/20 11:20 02/02/20 11:20 - Notes Notes: GENERAL: Elderly female who appears dehydrated and acutely ill. SKIN: Cool and dry. Good turgor no rashes. HEAD: Normocephalic atraumatic. EYES: Eyes appear sunken PERRLA. EOMI. Conjunctivae and sclerae clear. EARS: CANALS AND TMS CLEAR. NOSE: CLEAR. MOUTH: Tacky oral mucosa. Good dentition. No stridor or edema. No drooling. NECK: Supple. No masses or thyromegaly. No adenopathy. Carotids 2+ without bruits. No JVD. BACK: Symmetrical without tenderness. CHEST: Tachypnea. Tight end expiratory wheezes bilaterally. Mild use of accessory muscles. HEART: Regular rhythm. No murmur gallop or rub. ABDOMEN: Soft nontender without masses, organomegaly or rebound. Bowel sounds normally active. No bruits. GENITALIA: Deferred. EXTREMITIES: No edema. No calf tenderness. Cap refill greater than 2 seconds. Dorsalis pedis and posterior tibial pulses nonpalpable. NEUROLOGICAL: GCS 15. Alert and oriented x3. Sensorimotor testing normal. PSYCHIATRIC: Appropriate affect. Course - Vital Signs Vital signs: Temp Pulse Resp BP Pulse Ox 97.3 F 106 H 19 110/44 L 100 02/02/20 17:00 02/02/20 11:20 02/02/20 17:00 02/02/20 16:07 02/02/20 17:00 - Laboratory Result Diagrams: 02/02/20 12:25 02/02/20 12:25 Laboratory results interpreted by me: 02/02/20 02/02/2002/01/20 12:25 12:25 12:30 RDW 14.9 H Eos % (Auto) 10.1 H Absolute Eos (auto) 1.0 H Carbonic Acid 1.01 L ABG pH 7.16 L* ABG pCO2 33.5 L ABG pO2 139.1 H ABG HCO3 11.8 L ABG Total CO2 12.8 L ABG O2 Saturation 98.1 H VBG pH VBG HCO3 Sodium 134.1 L Carbon Dioxide 14 L Anion Gap 22 H BUN 103 H Creatinine 11.71 H Est GFR ( Amer) 4 L Est GFR (MDRD) Non-Af 3 L Direct Bilirubin 1.1 H Lipase 787.3 H Urine Protein Urine Bilirubin 02/02/20 02/02/20 14:47 16:45 RDW Eos % (Auto) Absolute Eos (auto) Carbonic Acid ABG pH ABG pCO2 ABG pO2 ABG HCO3 ABG Total CO2 ABG O2 Saturation VBG pH 7.14 L* VBG HCO3 15.3 L Sodium Carbon Dioxide Anion Gap BUN Creatinine Est GFR ( Amer) Est GFR (MDRD) Non-Af Direct Bilirubin Lipase Urine Protein 30 H Urine Bilirubin SMALL H - EKG Interpretation by Me Additional EKG results interpreted by me: 02/02/20 15:47 Twelve-lead EKG from 1154 hrs. reviewed contemporaneously by me. Indication for study: Shock Normal sinus rhythm. Rate 96. Intervals normal. QRS axis normal +[address]/T wave changes. Comparison with prior study from 02/16/2019 shows no significant interval change. Interpretation: Normal study. Critical Care Note - Critical Care Note Total time excluding time spent on procedures (mins): 70 - Treatment for hypovolemic shock and initiation of sepsis protocol Discharge - Discharge Clinical Impression: Acute kidney injury, Metabolic acidosis, Dehydration, Hypovolemic shock, Asthma Condition: Serious Disposition: ADMITTED INPATIENT Admitting Provider: Boy (Hospitalist) Unit Admitted: IMCU Referrals: OLY PAL MD [Primary Care Provider] - Follow up as needed
[2020-02-02 15:18] LABS: APPEARANCE,URINE SLIGHTLY-CLOUDY; BILIRUBIN,URINE SMALL (NEGATIVE); COLOR,URINE YELLOW; GLUCOSE, URINE NEGATIVE (NEGATIVE); KETONES,URINE NEGATIVE (NEGATIVE); LEUKOCYTE ESTERASE,URINE NEGATIVE (NEGATIVE); NITRITE,URINE NEGATIVE (NEGATIVE); PROTEIN,URINE 30 mg/dL (NEGATIVE); URINE SPECIFIC GRAVITY 1.013; UROBILINOGEN,URINE NEGATIVE mg/dL (<2.0)
--- NOTE | 2020-02-02 16:38 | RADIOLOGY REPORT (SQ) ---
EXAM DESCRIPTION: CT ABD/PELVIS NO ORAL OR IV IMAGES COMPLETED DATE/TIME: 02/02/2020 3:06 pm REASON FOR STUDY: ALVIN, acute pancreatitis COMPARISON: None. TECHNIQUE: CT scan of the abdomen and pelvis performed without intravenous or oral contrast. Images reviewed with lung, soft tissue, and bone windows. Reconstructed coronal and sagittal MPR images revi ewed. All images stored on PACS. All CT scanners at this facility use dose modulation, iterative reconstruction, and/or weight based d osing when appropriate to reduce radiation dose to as low as reasonably achievable (ALARA). [facility]: Dose Right [facility]: CareDose [facility]: Dose Right [facility]: Teradose 4D [facility]: Smart [employer] RADIATION DOSE: CT Rad equipment meets quality standard of care and radiation dose reduction techniq ues were employed. CTDIvol: 18.6 mGy. DLP: 963 mGy-cm.mGy. LIMITATIONS: None. FINDINGS: LOWER CHEST: No significant findings. No nodules or infiltrates. NON-CONTRASTED LIVER, SPLEEN, ADRENALS: Evaluation limited by lack of IV contrast. No identified sign ificant masses. PANCREAS: No masses. No peripancreatic inflammatory changes. GALLBLADDER: Surgically absent. RIGHT KIDNEY AND URETER: There is an exophytic right superior pole renal cortical cysts. No signifi cant calcifications. No hydronephrosis or hydroureter. LEFT KIDNEY AND URETER: There is an exophytic left renal cortical cyst. No significant calcificatio ns. No hydronephrosis or hydroureter. AORTA AND RETROPERITONEUM: No aneurysm. No retroperitoneal masses or adenopathy. BOWEL AND PERITONEAL CAVITY: Status post right hemicolectomy. Patent anastomosis. No bowel obstruct ion. No ascites or pneumoperitoneum. APPENDIX: Surgically absent. PELVIS, BLADDER, AND ABDOMINAL WALL:Martin catheter within the decompressed urinary bladder. No pelvi c mass. BONES: Spondylosis and degenerative disc disease in the lumbar spine. No suspicious bone lesions. OTHER: No other significant finding. IMPRESSION: No CT evidence of acute pancreatitis. No acute abnormality in the abdomen or pelvis. B ilateral renal cortical cysts. COMMENT: Quality ID # [id number]: Final reports with documentation of one or more dose reduction techniques (e.g., Automated exposure control, adjustment of the mA and/or kV according to patient size, use of iterative reconstruction technique) TECHNICAL DOCUMENTATION: JOB ID: [id number] 2010 [employer]- All Rights Reserved Reading location - IP/workstation name: [email or web address]
[2020-02-02 16:58] LABS: VENOUS BLOOD BASE EXCESS -13.3 mmol/L; VENOUS BLOOD HCO3 15.3 mmol/L (20-32); VENOUS BLOOD PCO2 46.1 mmHg (35-63)
[2020-02-02 17:00] LABS: VENOUS BLOOD PH 7.14 (7.30-7.42)
[2020-02-02] MEDS ORDERED: ALBUTEROL SULFATE HFA (90 MCG/PUFF) 8 GM MDI (1 MDI/ER DISP) IH PRN (17:53)
[2020-02-02] MEDS ORDERED: ACETAMINOPHEN 325 MG TABLET PO PRN (17:57)
--- NOTE | 2020-02-02 18:23 | EKG REPORT ---
SEVERITY:- NORMAL ECG - SINUS RHYTHM : Confirmed by: Jose Guadalupe Sifuentes MD 02-Feb-2020 18:23:10
[2020-02-02] MEDS ORDERED: POLYETHYLENE GLYCOL 3350 POWDER 17 GM/1 PACKET PO PRN (18:27)
[2020-02-02] MEDS ORDERED: PROMETHAZINE HCL INJ 25 MG/1 ML VIAL IV PRN (18:29)
--- NOTE | 2020-02-02 18:48 | PDOC H&P ---
History of Present Illness Admission Date/PCP: 02/02/20 17:25 OLY PAL Patient complains of: Nausea, vomiting, diarrhea and shortness of breath History of Present Illness: MEL SHAY is a 69 year old female with a past medical history of hypertension, hypercholesterolemia and depression who states that approximately 1 to 2 weeks ago she began to feel poorly. She was noticing decreasing appetite. As the illness progressed she developed diarrhea with nausea and vomiting which have been overwhelming over the last several days. She denies having any fever or chills. She did not note any blood in the emesis or stool. On exam she was found to be in severe acute kidney failure. BUN was 103 with a creatinine of 11.71. In addition her lipase was 787. Lactic acid was negative x3. White blood cell count was 10.1 with a platelet count of 186. Based on the hypoxemia, hypotension and kidney failure she meets criteria for sepsis. The sepsis is due to an unknown etiology. She is making urine. She received the standard sepsis IV bolus and was given vancomycin, levofloxacin and azithromycin. Her creatinine clearance on admission was estimated at 11. Past Medical History Cardiac Medical History: Reports: Hyperlipidema, Hypertension Denies: Coronary Artery Disease, Myocardial Infarction Pulmonary Medical History: Reports: Asthma, Pneumonia, Respiratory Failure Denies: Bronchitis, Chronic Obstructive Pulmonary Disease (COPD) Neurological Medical History: Denies: Seizures Endocrine Medical History: Denies: Diabetes Mellitus Type 1, Diabetes Mellitus Type 2, Hyperthyroidism, Hypothyroidism GI Medical History: Reports: Gastroesophageal Reflux Disease Denies: Cirrhosis, Crohn's Disease, Hepatitis, Ulcerative Colitis Musculoskeltal Medical History: 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 Denies: Gout Skin Medical History: Denies: Eczema, Psoriasis Psychiatric Medical History: Reports: Depression Hematology: Denies: Anemia, Bleeding Tendencies Past Surgical History Past Surgical History: Reports: Hysterectomy, Orthopedic Surgery - Right hip ORIF, Other - Right hemicolectomy per CT interpretation Social History Information Source: Patient, [facility] Records Lives with: Family Smoking Status: Never Smoker Electronic Cigarette use?: No Frequency of Alcohol Use: None Hx Recreational Drug Use: No Drugs: None Hx Prescription Drug Abuse: No - Advance Directive Resuscitation Status: Full Code Surrogate healthcare decision maker:: She request that her daughter be the designated decision maker. Family History Family History: CAD, CVA, DM, Malignancy Parental Family History Reviewed: Yes Children Family History Reviewed: Yes Sibling(s) Family History Reviewed.: Yes Medication/Allergy Home Medications: Citalopram Hydrobromide [Celexa 20 mg Tablet] 20 mg PO DAILY 11/27/16 Lisinopril/Hydrochlorothiazide [Lisinopril-Hctz 20-25 mg Tab] 1 tab PO DAILY 11/27/16 Lovastatin [Mevacor] 20 mg PO QPM 11/27/16 Omeprazole 40 mg PO DAILY 11/27/16 Potassium Chloride [K-Tab ER] 20 meq PO [id number] 11/27/16 Multivitamin [Tab-A-Cesar (Multiple Vitamin) Tablet] 1 tab PO DAILY 02/17/19 Albuterol Sulfate [Albuterol Sulfate Hfa] 2 puff IH Q6HP PRN #1 ea 02/18/19 Furosemide [Lasix] 20 mg PO DAILY 02/02/20 Cholestyramine (with Sugar) [Cholestyramine Packet] 1 packet PO BID 02/03/20 Ergocalciferol (Vitamin D2) [Drisdol 50,000 unit (1.25MG) Capsule] 50,000 unit PO GOMES@1000 02/03/20 Montelukast Sodium [Singulair 10 mg Tablet] 10 mg PO QPM 02/03/20 Oxycodone HCl/Acetaminophen [Percocet 5-325 mg Tablet] 1 tab PO Q8HP PRN 02/03/20 Allergies/Adverse Reactions: Penicillins Allergy (Intermediate, Verified 02/02/20 11:21) Nausea Review of Systems All systems: reviewed and no additional remarkable complaints except as stated Constitutional: PRESENT: fatigue, weakness Respiratory: PRESENT: dyspnea Gastrointestinal: PRESENT: diarrhea, nausea, vomiting Physical Exam Vital Signs: Temp Pulse Resp BP Pulse Ox 97.4 F 106 H 20 101/57 L 100 02/02/20 17:10 02/02/20 11:20 02/02/20 18:00 02/02/20 18:00 02/02/20 18:00 Intake & Output 02/01/20 02/02/20 02/03/20 06:59 06:59 06:59 Intake Total 3931 Balance 3931 Weight 105.9 kg General appearance: PRESENT: cooperative, well-developed, other - Moderate distress Head exam: PRESENT: atraumatic, normocephalic Eye exam: PRESENT: conjunctiva pink. ABSENT: scleral icterus Ear exam: PRESENT: normal external ear exam. ABSENT: bleeding, drainage Mouth exam: PRESENT: dry mucosa, tongue midline Neck exam: ABSENT: carotid bruit, JVD, lymphadenopathy Respiratory exam: PRESENT: rales, symmetrical, tachypnea. ABSENT: rhonchi, wheezes Cardiovascular exam: PRESENT: RRR, +S1, +S2. ABSENT: bradycardia, diastolic murmur, irregular rhythm, systolic murmur, tachycardia GI/Abdominal exam: PRESENT: normal bowel sounds, soft. ABSENT: distended, guarding, tenderness Rectal exam: PRESENT: deferred Gentrourinary exam: PRESENT: indwelling catheter Extremities exam: ABSENT: pedal edema Musculoskeletal exam: PRESENT: normal inspection. ABSENT: deformity, dislocation Neurological exam: PRESENT: awake, oriented to person, oriented to place, oriented to situation. ABSENT: alert - Had some difficulty during the encounter as she was short of breath Psychiatric exam: PRESENT: flat affect. ABSENT: agitated, anxious Focused psych exam: ABSENT: delusional, paranoid, restlessness Skin exam: PRESENT: dry, normal color, warm. ABSENT: rash Results Laboratory Results: 02/02/20 12:25 02/02/20 12:25 02/02/20 02/02/20 02/02/20 12:25 12:25 12:25 WBC 10.1 RBC 4.20 Hgb 13.0 Hct 39.0 MCV 93 MCH 31.0 MCHC 33.4 RDW 14.9 H Plt Count 186 Seg Neutrophils % 58.5 Carbonic Acid HCO3/H2CO3 Ratio ABG pH ABG pCO2 ABG pO2 ABG HCO3 ABG O2 Saturation ABG Base Excess VBG pH VBG pCO2 VBG HCO3 VBG Base Excess FiO2 Sodium 134.1 L Potassium 4.5 Chloride 98 Carbon Dioxide 14 L Anion Gap 22 H BUN 103 H Creatinine 11.71 H Est GFR ( Amer) 4 L Glucose 91 Lactic Acid 1.2 Calcium 9.3 Total Bilirubin 1.1 AST 23 Alkaline Phosphatase 77 Total Protein 7.1 Albumin 4.1 Lipase 787.3 H Urine Color Urine Appearance Urine pH Ur Specific [place] Urine Protein Urine Glucose (UA) Urine Ketones Urine Blood Urine Nitrite Ur Leukocyte Esterase Urine WBC (Auto) Urine RBC (Auto) 09/06/20 09/06/20 09/06/20 12:30 13:21 14:47 WBC RBC Hgb Hct MCV MCH MCHC RDW Plt Count Seg Neutrophils % Carbonic Acid 1.01 L HCO3/H2CO3 Ratio 11:1 ABG pH 7.16 L* ABG pCO2 33.5 L ABG pO2 139.1 H ABG HCO3 11.8 L ABG O2 Saturation 98.1 H ABG Base Excess -15.8 VBG pH VBG pCO2 VBG HCO3 VBG Base Excess FiO2 2L Sodium Potassium Chloride Carbon Dioxide Anion Gap BUN Creatinine Est GFR ( Amer) Glucose Lactic Acid 1.1 Calcium Total Bilirubin AST Alkaline Phosphatase Total Protein Albumin Lipase Urine Color YELLOW Urine Appearance SLIGHTLY-CLOUDY Urine pH 5.0 Ur Specific [place] 1.013 Urine Protein 30 H Urine Glucose (UA) NEGATIVE Urine Ketones NEGATIVE Urine Blood NEGATIVE Urine Nitrite NEGATIVE Ur Leukocyte Esterase NEGATIVE Urine WBC (Auto) 3 Urine RBC (Auto) 2 02/02/20 02/02/20 16:45 17:20 WBC RBC Hgb Hct MCV MCH MCHC RDW Plt Count Seg Neutrophils % Carbonic Acid HCO3/H2CO3 Ratio ABG pH ABG pCO2 ABG pO2 ABG HCO3 ABG O2 Saturation ABG Base Excess VBG pH 7.14 L* VBG pCO2 46.1 VBG HCO3 15.3 L VBG Base Excess -13.3 FiO2 Sodium Potassium Chloride Carbon Dioxide Anion Gap BUN Creatinine Est GFR ( Amer) Glucose Lactic Acid 0.9 Calcium Total Bilirubin AST Alkaline Phosphatase Total Protein Albumin Lipase Urine Color Urine Appearance Urine pH Ur Specific [place] Urine Protein Urine Glucose (UA) Urine Ketones Urine Blood Urine Nitrite Ur Leukocyte Esterase Urine WBC (Auto) Urine RBC (Auto) 02/02/20 02/02/20 12:25 12:25 Creatine Kinase 86 Troponin I < 0.012 Impressions: Abdomen/Pelvis CT 02/02/20 13:37 IMPRESSION: No CT evidence of acute pancreatitis. No acute abnormality in the abdomen or pelvis. Bilateral renal cortical cysts. Assessment and Plan - Diagnosis (1) Sepsis Qualifiers: Sepsis type: sepsis due to unspecified organism Sepsis acute organ dysfunction status: with acute organ dysfunction Severe sepsis acute organ dysfunction type: acute renal failure Acute renal failure type: with acute tubular necrosis Severe sepsis shock status: with septic shock Qualified Code(s): A41.9 - Sepsis, unspecified organism; R65.21 - Severe sepsis with septic shock; N17.0 - Acute kidney failure with tubular necrosis Is this a current diagnosis for this admission?: Yes Plan: The patient meets criteria for sepsis. I think in her case it is more from her dehydration and kidney injury than infection. She does have suspicion for Covid-19 with a GI presentation. (2) Acute kidney injury with acute tubular necrosis Is this a current diagnosis for this admission?: Yes Plan: Severe kidney injury with a creatinine of 11. Likely combination of the patient continuing her diuretics while having diarrhea nausea and vomiting. The patient has been given boluses of fluid consistent with a sepsis protocol. She will recieve IV fluids through the night (3) Hypovolemic shock Is this a current diagnosis for this admission?: Yes Plan: Hypotensive on admission more likely due to hypovolemia rather than from an infection. Will hydrate and monitor BP (4) Pancreatitis Qualifiers: Chronicity: acute Pancreatitis type: other Acute pancreatitis c omplication: no infection or necrosis Qualified Code(s): K85.80 - Other acute pancreatitis without necrosis or infection Is this a current diagnosis for this admission?: Yes Plan: Lipase elevated. Administer IV fluids and monitor lipase (5) Hyperlipidemia Qualifiers: Hyperlipidemia type: unspecified Qualified Code(s): E78.5 - Hyperlipidemia, unspecified Is this a current diagnosis for this admission?: Yes Plan: Continue statin therapy (6) Hypertension Qualifiers: Hypertension type: essential hypertension Qualified Code(s): I10 - Essential (primary) hypertension Is this a current diagnosis for this admission?: Yes Plan: Blood pressure is low. Continue IV fluids and monitor vital signs and I&O (7) Depression Qualifiers: Depression Type: unspecified Qualified Code(s): F32.9 - Major depressive disorder, single episode, unspecified Is this a current diagnosis for this admission?: Yes Plan: Continue citalopram (8) Person under investigation for COVID-19 Is this a current diagnosis for this admission?: Yes Plan: Possible GI presentation. Check Covid serology. On zithromax, supplements and melatonin - Time Time Spent with patient: 35 or more minutes Medications reviewed and adjusted accordingly: Yes Anticipated Discharge Disposition: unknown Anticipated Discharge Timeframe: unknown - Inpatient Certification Based on my medical assessment, after consideration of the patient's comorbidities, presenting symptoms, or acuity I expect that the services needed warrant INPATIENT care.: Yes I certify that my determination is in accordance with my understanding of Medicare's requirements for reasonable and necessary INPATIENT services [42 CFR 412.3e].: Yes Medical Necessity: Need For IV Fluids, Need For Continuous Telemetry Monitoring, Need for IV Antibiotics Post Hospital Care: D/C or Transfer Summary
[2020-02-02 19:05] LABS: C-REACTIVE PROTEIN 30.9 mg/L (<10.0)
[2020-02-02 19:38] LABS: ALBUMIN 3.6 g/dL (3.5-5.0); ANION GAP 17 (5-19); BLOOD UREA NITROGEN 96 mg/dL (7-20); CALCIUM 8.7 mg/dL (8.4-10.2); CARBON DIOXIDE 16 mmol/L (22-30); CHLORIDE 98 mmol/L (98-107); GLUCOSE 134 mg/dL (75-110); PHOSPHORUS 12.4 mg/dL (2.5-4.5); POTASSIUM 5.1 mmol/L (3.6-5.0)
[2020-02-02] MEDS: MORPHINE SULFATE 10 MG/ML INJ IV PRN (23:50)
[2020-02-02] MEDS: MELATONIN 5 MG TABLET PO SCH (23:51)
[2020-02-02] MEDS: MONTELUKAST SODIUM 10 MG TABLET PO SCH (23:51)
[2020-02-02] MEDS: DEXAMETHASONE SOD PHOSPHATE INJ 4 MG/1 ML VIAL IV SCH (23:51)
[2020-02-03] MEDS: MORPHINE SULFATE 10 MG/ML INJ IV PRN ×2 (05:48→21:43)
[2020-02-03] MEDS: PANTOPRAZOLE SODIUM 40 MG TABLET.DR PO SCH (05:48)
[2020-02-03] MEDS: DEXAMETHASONE SOD PHOSPHATE INJ 4 MG/1 ML VIAL IV SCH ×3 (05:48→21:43)
[2020-02-03 06:53] LABS: ABSOLUTE LYMPHOCYTES (AUTO) 0.4 10^3/uL (0.5-4.7); ABSOLUTE NEUT (AUTO) 4.6 10^3/uL (1.7-8.2); BASOPHILS % (AUTO) 0.1 % (0-2); HEMATOCRIT 33.8 % (36.0-47.0); HEMOGLOBIN 11.7 g/dL (12.0-15.5); LYMPHOCYTES % (AUTO) 7.6 % (13-45); MEAN CORPUSCULAR HEMOGLOBIN 31.2 pg (27.0-33.4); MEAN CORPUSCULAR HGB CONC 34.6 g/dL (32.0-36.0); MEAN CORPUSCULAR VOLUME 90 fl (80-97); MONOCYTES % (AUTO) 0.7 % (3-13); PLATELET COUNT 154 10^3/uL (150-450); RED BLOOD COUNT 3.75 10^6/uL (3.72-5.28); RED CELL DISTRIBUTION WIDTH 14.6 % (11.5-14.0); SEGMENTED NEUTROPHILS % (AUTO) 91.6 % (42-78); TOTAL CELLS COUNTED % (AUTO) 100 %
[2020-02-03 07:07] LABS: ALBUMIN 3.5 g/dL (3.5-5.0); BLOOD UREA NITROGEN 102 mg/dL (7-20); CALCIUM 8.9 mg/dL (8.4-10.2); GLUCOSE 128 mg/dL (75-110); PHOSPHORUS 12.3 mg/dL (2.5-4.5); POTASSIUM 5.7 mmol/L (3.6-5.0)
[2020-02-03 07:12] LABS: CARBON DIOXIDE 13 mmol/L (22-30); CHLORIDE 98 mmol/L (98-107)
[2020-02-03 07:39] LABS: ANION GAP 20 (5-19)
--- NOTE | 2020-02-03 08:26 | RADIOLOGY REPORT (SQ) ---
EXAM DESCRIPTION: CHEST SINGLE VIEW IMAGES COMPLETED DATE/TIME: 02/03/2020 8:01 am REASON FOR STUDY: chf vs pneumonia COMPARISON: 02/02/2020 FINDINGS: One-view chest AP portable upright. No change. Stable cardiomediastinal silhouette. Prominent central pulmonary vascularity, unchanged. No develop ing infiltrates or pneumothorax. TECHNICAL DOCUMENTATION: JOB ID: [id number] Reading location - IP/workstation name: [email or web address]
[2020-02-03] MEDS ORDERED: CEFEPIME HCL 0.5 GM in DEXTROSE 5%-WATER 25 ML IV SCH (10:00)
[2020-02-03] MEDS: FLUTICASONE/VILANTEROL 100-25 MCG/DOSE IH SCH (10:59)
[2020-02-03] MEDS: ZINC SULFATE 220 MG CAPSULE PO SCH (10:59)
[2020-02-03] MEDS: ASCORBIC ACID 500 MG TABLET PO SCH ×2 (10:59→18:17)
[2020-02-03] MEDS: CITALOPRAM HYDROBROMIDE 20 MG TABLET PO SCH (11:24)
[2020-02-03] MEDS: DOCUSATE SODIUM 100 MG CAPSULE PO SCH (11:24)
[2020-02-03] MEDS: CHOLECALCIFEROL (D3) 1,000 UNIT (25 MCG) TABLET PO SCH (11:25)
[2020-02-03] MEDS: CEFEPIME HCL 0.5 GM in NORMAL SALINE 25 ML IV SCH (11:25)
[2020-02-03] MEDS: AZITHROMYCIN 500 MG in DEXTROSE 5%-WATER 250 ML IV SCH (12:32)
[2020-02-03] MEDS ORDERED: ENOXAPARIN SODIUM INJ 100 MG/1 ML DISP.SYRIN SUBCUT SCH (15:00)
[2020-02-03] MEDS: MELATONIN 5 MG TABLET PO SCH (21:43)
[2020-02-03] MEDS: MONTELUKAST SODIUM 10 MG TABLET PO SCH (21:43)
--- NOTE | 2020-02-03 21:46 | PDOC PROGRESS REPORT ---
Subjective Progress Note for:: 02/03/20 Subjective:: Feeling slightly better. Still with some dyspnea. Unfortunately the order for IV fluids somehow did not make it through to nursing so there was no IV fluid last night. Reason For Visit: ACUTE KIDNEY INJURY,SEPSIS UNKNOWN ETIOLOGY, Physical Exam Vital Signs: Temp Pulse Resp BP Pulse Ox 97.9 F 93 18 97/51 L 100 02/03/20 17:59 02/03/20 17:59 02/03/20 17:59 02/03/20 17:59 02/03/20 17:59 Intake & Output 02/02/20 02/03/20 02/04/20 06:59 06:59 06:59 Intake Total 4051 525 Output Total 700 925 Balance 3351 -400 Weight 105.3 kg General appearance: PRESENT: cooperative, mild distress, well-developed Head exam: PRESENT: atraumatic, normocephalic Ear exam: PRESENT: normal external ear exam. ABSENT: bleeding, drainage Mouth exam: PRESENT: dry mucosa, tongue midline Respiratory exam: PRESENT: rales - faint rales bilaterally, symmetrical, wheezes - sporadic wheezes intermittantly.. ABSENT: accessory muscle use, rhonchi, tachypnea Cardiovascular exam: PRESENT: RRR, +S1, +S2. ABSENT: bradycardia, diastolic murmur, irregular rhythm, systolic murmur, tachycardia GI/Abdominal exam: PRESENT: normal bowel sounds, soft. ABSENT: distended, guarding, tenderness Rectal exam: PRESENT: deferred Gentrourinary exam: PRESENT: indwelling catheter, other - urine concentrated with some sediment Extremities exam: ABSENT: pedal edema Musculoskeletal exam: PRESENT: normal inspection. ABSENT: deformity, dislocation Neurological exam: PRESENT: alert, awake, oriented to person, oriented to place, oriented to situation, CN II-XII grossly intact. ABSENT: altered Psychiatric exam: PRESENT: flat affect. ABSENT: agitated, anxious Focused psych exam: ABSENT: delusional, paranoid, restlessness Skin exam: PRESENT: dry, normal color, warm. ABSENT: rash Results Laboratory Results: 02/03/20 06:25 02/03/20 06:25 02/03/20 02/03/20 06:25 06:25 WBC 5.0 RBC 3.75 Hgb 11.7 L Hct 33.8 L MCV 90 MCH 31.2 MCHC 34.6 RDW 14.6 H Plt Count 154 Seg Neutrophils % 91.6 H Sodium 131.2 L Potassium 5.7 H Chloride 98 Carbon Dioxide 13 L Anion Gap 20 H BUN 102 H Creatinine 7.91 H Est GFR ( Amer) 6 L Glucose 128 H Calcium 8.9 Phosphorus 12.3 H Magnesium 2.6 H Albumin 3.5 Lipase 523.3 H 02/02/20 02/02/20 12:25 12:25 Creatine Kinase 86 Troponin I < 0.012 Impressions: Abdomen/Pelvis CT 02/02/20 13:37 IMPRESSION: No CT evidence of acute pancreatitis. No acute abnormality in the abdomen or pelvis. Bilateral renal cortical cysts. Assessment and Plan - Diagnosis (1) Sepsis Qualifiers: Sepsis type: sepsis due to unspecified organism Sepsis acute organ d ysfunction status: with acute organ dysfunction Severe sepsis acute organ dysfunction type: acute renal failure Acute renal failure type: with acute tubular necrosis Severe sepsis shock status: with septic shock Qualified Code(s): A41.9 - Sepsis, unspecified organism; R65.21 - Severe sepsis with septic shock; N17.0 - Acute kidney failure with tubular necrosis Is this a current diagnosis for this admission?: Yes Plan: Blood pressure is better. Still needs IV fluids. No positive cultures (2) Acute kidney injury with acute tubular necrosis Is this a current diagnosis for this admission?: Yes Plan: Creatinine and BUN slightly better but urine output is still decreased because of the lack of IV fluid last night. IV LR started immediately (3) Hypovolemic shock Is this a current diagnosis for this admission?: Yes Plan: resolved with fluids (4) Pancreatitis Qualifiers: Chronicity: acute Pancreatitis type: other Acute pancreatitis complication: no infection or necrosis Qualified Code(s): K85.80 - Other acute pancreatitis without necrosis or infection Is this a current diagnosis for this admission?: Yes Plan: lipase is better but we will monitor and continue IV fluids (5) Hyperlipidemia Qualifiers: Hyperlipidemia type: unspecified Qualified Code(s): E78.5 - Hyperlipidemia, unspecified Is this a current diagnosis for this admission?: Yes Plan: Continue statin therapy (6) Hypertension Qualifiers: Hypertension type: essential hypertension Qualified Code(s): I10 - Essential (primary) hypertension Is this a current diagnosis for this admission?: Yes Plan: As blood pressure improves consider resuming anti-hypertensive meds (7) Depression Qualifiers: Depression Type: unspecified Qualified Code(s): F32.9 - Major depressive disorder, single episode, unspecified Is this a current diagnosis for this admission?: Yes Plan: Continue citalopram (8) Person under investigation for COVID-19 Is this a current diagnosis for this admission?: Yes Plan: continuing therapy for possible covid infection until serology available - Time Time Spent with patient: 15-24 minutes Medications reviewed and adjusted accordingly: Yes Anticipated Discharge Disposition: unknown Anticipated Discharge Timeframe: unknown
[2020-02-03] MEDS: RINGERS SOLUTION,LACTATED 1,000 ML IV PRN (22:31)
[2020-02-04] MEDS: MORPHINE SULFATE 10 MG/ML INJ IV PRN ×2 (02:05→06:38)
[2020-02-04] MEDS: RINGERS SOLUTION,LACTATED 1,000 ML IV PRN ×4 (02:08→23:50)
[2020-02-04] MEDS: PANTOPRAZOLE SODIUM 40 MG TABLET.DR PO SCH (06:20)
[2020-02-04] MEDS: DEXAMETHASONE SOD PHOSPHATE INJ 4 MG/1 ML VIAL IV SCH ×3 (06:39→21:07)
[2020-02-04 06:45] LABS: ALBUMIN 3.3 g/dL (3.5-5.0); ANION GAP 13 (5-19); BLOOD UREA NITROGEN 95 mg/dL (7-20); CALCIUM 9.4 mg/dL (8.4-10.2); CARBON DIOXIDE 17 mmol/L (22-30); CHLORIDE 105 mmol/L (98-107); GLUCOSE 125 mg/dL (75-110)
[2020-02-04 07:04] LABS: PHOSPHORUS 6.9 mg/dL (2.5-4.5); POTASSIUM 4.7 mmol/L (3.6-5.0)
[2020-02-04] MEDS: CEFEPIME HCL 0.5 GM in NORMAL SALINE 25 ML IV SCH (10:06)
[2020-02-04] MEDS: DOCUSATE SODIUM 100 MG CAPSULE PO SCH (10:07)
[2020-02-04] MEDS: ASCORBIC ACID 500 MG TABLET PO SCH ×2 (10:07→18:15)
[2020-02-04] MEDS: ZINC SULFATE 220 MG CAPSULE PO SCH (10:07)
[2020-02-04] MEDS: CITALOPRAM HYDROBROMIDE 20 MG TABLET PO SCH (10:07)
[2020-02-04] MEDS: CHOLECALCIFEROL (D3) 1,000 UNIT (25 MCG) TABLET PO SCH (10:07)
[2020-02-04] MEDS: FLUTICASONE/VILANTEROL 100-25 MCG/DOSE IH SCH (10:08)
[2020-02-04] MEDS: AZITHROMYCIN 500 MG in DEXTROSE 5%-WATER 250 ML IV SCH (14:00)
[2020-02-04] MEDS: HEPARIN SOD (PORCINE) 5,000 UNIT/ML 1 ML VIAL SUBCUT SCH ×2 (14:05→21:07)
--- NOTE | 2020-02-04 14:42 | PDOC PROGRESS REPORT ---
Subjective Progress Note for:: 02/04/20 Subjective:: Patient states her breathing is a little better but still feels a little short of breath. She is audibly wheezing. She states that she has history of asthma and is on 2 L oxygen at home. She denies any fever or chills. She denies having any episodes of diarrhea today. Reason For Visit: ACUTE KIDNEY INJURY,SEPSIS UNKNOWN ETIOLOGY, Physical Exam Vital Signs: Temp Pulse Resp BP Pulse Ox 97.5 F 86 22 H 124/69 100 02/04/20 08:59 02/04/20 08:59 02/04/20 08:59 02/04/20 08:59 02/04/20 08:59 Intake & Output 02/03/20 02/04/20 02/05/20 06:59 06:59 06:59 Intake Total 4051 2281 536 Output Total 700 1525 Balance 3351 756 536 Weight 105.3 kg 104.9 kg 104.9 kg General appearance: PRESENT: no acute distress, cooperative Neck exam: ABSENT: JVD Respiratory exam: PRESENT: symmetrical, unlabored, wheezes - Very significant bilateral throughout lung corral. ABSENT: accessory muscle use, retraction, stridor, tachypnea Cardiovascular exam: PRESENT: RRR, +S1, +S2. ABSENT: tachycardia GI/Abdominal exam: PRESENT: soft. ABSENT: rebound, rigid, tenderness Neurological exam: PRESENT: alert, awake, oriented to person, oriented to place, oriented to time, oriented to situation Psychiatric exam: ABSENT: agitated, anxious Results Laboratory Results: 02/03/20 06:25 02/04/20 05:24 02/04/20 05:24 Sodium 134.8 L Potassium 4.7 D Chloride 105 Carbon Dioxide 17 L Anion Gap 13 BUN 95 H Creatinine 3.07 H Est GFR ( Amer) 18 L Glucose 125 H Calcium 9.4 Phosphorus 6.9 H D Magnesium 2.1 Albumin 3.3 L 02/02/20 02/02/20 12:25 12:25 Creatine Kinase 86 Troponin I < 0.012 Impressions: Abdomen/Pelvis CT 02/02/20 13:37 IMPRESSION: No CT evidence of acute pancreatitis. No acute abnormality in the abdomen or pelvis. Bilateral renal cortical cysts. Assessment and Plan - Diagnosis (1) Acute kidney injury with acute tubular necrosis Is this a current diagnosis for this admission?: Yes Plan: Creatinine improving today and is down to 3. Still notable hyperphosphatemia which is also improving with improvement in renal function. Hyperkalemia has resolved. We will continue IV fluids through today and hopefully renal function can improve. Avoid nephrotoxic meds. (2) Asthma exacerbation Is this a current diagnosis for this admission?: Yes Plan: Having very significant wheezing on exam noted today. Will put patient on duo nebs every 6 hours. Currently on dexamethasone. If COVID-19 test is negative, will switch to prednisone. (3) Chronic respiratory failure with hypoxia Is this a current diagnosis for this admission?: Yes Plan: Uses 2 L nasal cannula at home. Continue (4) Hypovolemic shock Is this a current diagnosis for this admission?: Yes Plan: resolved with fluids (5) Hypertension Qualifiers: Hypertension type: essential hypertension Qualified Code(s): I10 - Essential (primary) hypertension Is this a current diagnosis for this admission?: Yes Plan: As blood pressure improves consider resuming anti-hypertensive meds (6) Person under investigation for COVID-19 Is this a current diagnosis for this admission?: Yes Plan: continuing therapy for possible covid infection until serology available - Time Time Spent with patient: 15-24 minutes Anticipated Discharge Disposition: Home, Self Care Anticipated Discharge Timeframe: within 48 hours
[2020-02-04] MEDS: IPRATROPIUM/ALBUTEROL 0.5-2.5 MG/3 ML AMPUL NEB SCH ×2 (15:33→21:06)
[2020-02-04] MEDS: MELATONIN 5 MG TABLET PO SCH (21:08)
[2020-02-04] MEDS: MONTELUKAST SODIUM 10 MG TABLET PO SCH (21:08)
[2020-02-05] MEDS: IPRATROPIUM/ALBUTEROL 0.5-2.5 MG/3 ML AMPUL NEB SCH ×4 (02:40→20:51)
[2020-02-05] MEDS: DEXAMETHASONE SOD PHOSPHATE INJ 4 MG/1 ML VIAL IV SCH (05:25)
[2020-02-05] MEDS: PANTOPRAZOLE SODIUM 40 MG TABLET.DR PO SCH (05:25)
[2020-02-05] MEDS: HEPARIN SOD (PORCINE) 5,000 UNIT/ML 1 ML VIAL SUBCUT SCH ×3 (05:25→22:09)
[2020-02-05 06:23] LABS: ALBUMIN 3.4 g/dL (3.5-5.0); ANION GAP 9 (5-19); BLOOD UREA NITROGEN 81 mg/dL (7-20); CALCIUM 9.5 mg/dL (8.4-10.2); CARBON DIOXIDE 22 mmol/L (22-30); CHLORIDE 108 mmol/L (98-107); GLUCOSE 149 mg/dL (75-110); POTASSIUM 4.2 mmol/L (3.6-5.0)
[2020-02-05 06:36] LABS: PHOSPHORUS 4.2 mg/dL (2.5-4.5)
[2020-02-05 07:27] LABS: HEMATOCRIT 32.6 % (36.0-47.0); HEMOGLOBIN 11.3 g/dL (12.0-15.5); MEAN CORPUSCULAR HEMOGLOBIN 31.2 pg (27.0-33.4); MEAN CORPUSCULAR HGB CONC 34.7 g/dL (32.0-36.0); MEAN CORPUSCULAR VOLUME 90 fl (80-97); PLATELET COUNT 163 10^3/uL (150-450); RED BLOOD COUNT 3.62 10^6/uL (3.72-5.28); RED CELL DISTRIBUTION WIDTH 14.4 % (11.5-14.0); WHITE BLOOD COUNT 4.6 10^3/uL (4.0-10.5)
[2020-02-05] MEDS: RINGERS SOLUTION,LACTATED 1,000 ML IV PRN (10:00)
[2020-02-05] MEDS ORDERED: METHYLPREDNISOLONE INJ 40 MG/1 ML SDV IV SCH (10:00)
[2020-02-05] MEDS: FLUTICASONE/VILANTEROL 100-25 MCG/DOSE IH SCH (10:15)
[2020-02-05] MEDS: ASCORBIC ACID 500 MG TABLET PO SCH ×2 (10:15→17:57)
[2020-02-05] MEDS: DOCUSATE SODIUM 100 MG CAPSULE PO SCH (10:15)
[2020-02-05] MEDS: ZINC SULFATE 220 MG CAPSULE PO SCH (10:15)
[2020-02-05] MEDS: CHOLECALCIFEROL (D3) 1,000 UNIT (25 MCG) TABLET PO SCH (10:15)
[2020-02-05] MEDS: CITALOPRAM HYDROBROMIDE 20 MG TABLET PO SCH (10:15)
--- NOTE | 2020-02-05 14:25 | PDOC PROGRESS REPORT ---
Subjective Progress Note for:: 02/05/20 Subjective:: Patient is appreciated because she feels that she is breathing better. She denies any chest pains. Denies nausea or vomiting. Reason For Visit: ACUTE KIDNEY INJURY,SEPSIS UNKNOWN ETIOLOGY, Physical Exam Vital Signs: Temp Pulse Resp BP Pulse Ox 97.9 F 100 18 119/72 100 02/05/20 10:57 02/05/20 13:59 02/05/20 13:59 02/05/20 10:57 02/05/20 13:59 Intake & Output 02/04/20 02/05/20 02/06/20 06:59 06:59 06:59 Intake Total 2281 3258 1000 Output Total 1525 3000 Balance 983 570 4658 Weight 104.9 kg 104.9 kg General appearance: PRESENT: no acute distress, cooperative Neck exam: ABSENT: JVD Respiratory exam: PRESENT: symmetrical, unlabored, wheezes. ABSENT: accessory muscle use, crackles, tachypnea Cardiovascular exam: PRESENT: RRR, +S1, +S2. ABSENT: tachycardia GI/Abdominal exam: PRESENT: soft. ABSENT: rebound, rigid, tenderness Neurological exam: PRESENT: alert, awake, oriented to person, oriented to place, oriented to time Results Laboratory Results: 02/05/20 04:46 02/05/20 04:46 02/05/20 02/05/20 04:46 04:46 WBC 4.6 RBC 3.62 L Hgb 11.3 L Hct 32.6 L MCV 90 MCH 31.2 MCHC 34.7 RDW 14.4 H Plt Count 163 Sodium 138.9 Potassium 4.2 Chloride 108 H Carbon Dioxide 22 Anion Gap 9 BUN 81 H Creatinine 1.56 H Est GFR ( Amer) 40 L Glucose 149 H Calcium 9.5 Phosphorus 4.2 D Magnesium 1.7 Albumin 3.4 L 02/02/20 02/02/20 12:25 12:25 Creatine Kinase 86 Troponin I < 0.012 Impressions: Abdomen/Pelvis CT 02/02/20 13:37 IMPRESSION: No CT evidence of acute pancreatitis. No acute abnormality in the abdomen or pelvis. Bilateral renal cortical cysts. Assessment and Plan - Diagnosis (1) Acute kidney injury with acute tubular necrosis Is this a current diagnosis for this admission?: Yes Plan: Noted to be almost net even yesterday with adequate urine output creatinine continues to improve with IV fluids administration. We will slow down IV fluid rate 70 cc/h today as creatinine is now 1.5. Continue to monitor urine output closely and monitor for post-ATN diuresis which if present, will need augmentation with IV fluids to avoid dehydration. Daily BMPs (2) Asthma exacerbation Qualifiers: Asthma severity: unspecified severity Asthma persistence: unspecified Qu alified Code(s): J45.901 - Unspecified asthma with (acute) exacerbation Is this a current diagnosis for this admission?: Yes Plan: Still having significant wheezing but a little bit better than yesterday. Continue duo nebs and long-acting inhaler. Switch dexamethasone to Solu-Medrol every 12 hours. Start p.o. azithromycin. She will need controller/maintenance inhaler upon discharge. (3) Chronic respiratory failure with hypoxia Is this a current diagnosis for this admission?: Yes Plan: Uses 2 L nasal cannula at home. However currently maintaining 100% on 2 L. Put on 2 L only if necessary. (4) Hypovolemic shock Is this a current diagnosis for this admission?: Yes Plan: Resolved (5) Hypertension Qualifiers: Hypertension type: essential hypertension Qualified Code(s): I10 - Essential (primary) hypertension Is this a current diagnosis for this admission?: Yes Plan: As blood pressure improves consider resuming anti-hypertensive meds (6) Person under investigation for COVID-19 Is this a current diagnosis for this admission?: Yes Plan: Test came back negative - Time Time Spent with patient: 15-24 minutes Anticipated Discharge Disposition: Home, Self Care Anticipated Discharge Timeframe: within 48 hours
[2020-02-05] MEDS ORDERED: AZITHROMYCIN 250 MG TABLET PO ONE (14:45)
[2020-02-05] MEDS: MONTELUKAST SODIUM 10 MG TABLET PO SCH (22:09)
[2020-02-05] MEDS: METHYLPREDNISOLONE INJ 40 MG/1 ML SDV IV SCH (22:09)
[2020-02-05] MEDS: MELATONIN 5 MG TABLET PO SCH (22:09)
[2020-02-06] MEDS: IPRATROPIUM/ALBUTEROL 0.5-2.5 MG/3 ML AMPUL NEB SCH ×4 (02:30→19:57)
[2020-02-06] MEDS: PANTOPRAZOLE SODIUM 40 MG TABLET.DR PO SCH (05:57)
[2020-02-06] MEDS: RINGERS SOLUTION,LACTATED 1,000 ML IV PRN (05:57)
[2020-02-06] MEDS: HEPARIN SOD (PORCINE) 5,000 UNIT/ML 1 ML VIAL SUBCUT SCH ×3 (05:57→21:53)
[2020-02-06 06:18] LABS: ANION GAP 8 (5-19); BLOOD UREA NITROGEN 67 mg/dL (7-20); CALCIUM 9.5 mg/dL (8.4-10.2); CARBON DIOXIDE 23 mmol/L (22-30); CHLORIDE 110 mmol/L (98-107); GLUCOSE 153 mg/dL (75-110); POTASSIUM 3.9 mmol/L (3.6-5.0)
[2020-02-06] MEDS: METHYLPREDNISOLONE INJ 40 MG/1 ML SDV IV SCH ×2 (09:23→21:53)
[2020-02-06] MEDS: DOCUSATE SODIUM 100 MG CAPSULE PO SCH (09:32)
[2020-02-06] MEDS: FLUTICASONE/VILANTEROL 100-25 MCG/DOSE IH SCH (10:48)
[2020-02-06] MEDS: CHOLECALCIFEROL (D3) 1,000 UNIT (25 MCG) TABLET PO SCH (10:48)
[2020-02-06] MEDS: CITALOPRAM HYDROBROMIDE 20 MG TABLET PO SCH (10:48)
[2020-02-06] MEDS: ASCORBIC ACID 500 MG TABLET PO SCH ×2 (10:49→17:00)
[2020-02-06] MEDS: ZINC SULFATE 220 MG CAPSULE PO SCH (10:49)
[2020-02-06] MEDS: AZITHROMYCIN 250 MG TABLET PO SCH (10:49)
--- NOTE | 2020-02-06 13:33 | PDOC PROGRESS REPORT ---
Subjective Progress Note for:: 02/06/20 Subjective:: Patient continues to feel better. She states that her wheezing is better. Not audible without auscultation as before during encounter today but had just received a breathing treatment during my exam. Denies any chest pain. Reason For Visit: ACUTE KIDNEY INJURY,SEPSIS UNKNOWN ETIOLOGY, Physical Exam Vital Signs: Temp Pulse Resp BP Pulse Ox 98.1 F 86 20 134/79 H 98 02/06/20 11:11 02/06/20 11:11 02/06/20 11:11 02/06/20 11:11 02/06/20 11:11 Intake & Output 02/05/20 02/06/20 02/07/20 06:59 06:59 06:59 Intake Total 3258 2070 Output Total 3000 2250 Balance 258 -180 Weight 104.9 kg 104.9 kg General appearance: PRESENT: no acute distress, cooperative Neck exam: ABSENT: JVD Respiratory exam: PRESENT: symmetrical, unlabored, wheezes - A lot better than yesterday. ABSENT: tachypnea Cardiovascular exam: PRESENT: RRR, +S1, +S2. ABSENT: tachycardia GI/Abdominal exam: PRESENT: soft. ABSENT: rebound, rigid, tenderness Neurological exam: PRESENT: alert, awake, oriented to person, oriented to place, oriented to time Results Laboratory Results: 02/05/20 04:46 02/06/20 05:00 02/06/20 05:00 Sodium 140.6 Potassium 3.9 Chloride 110 H Carbon Dioxide 23 Anion Gap 8 BUN 67 H Creatinine 1.24 Est GFR ( Amer) 52 L Glucose 153 H Calcium 9.5 02/02/20 02/02/20 12:25 12:25 Creatine Kinase 86 Troponin I < 0.012 Impressions: Abdomen/Pelvis CT 02/02/20 13:37 IMPRESSION: No CT evidence of acute pancreatitis. No acute abnormality in the abdomen or pelvis. Bilateral renal cortical cysts. Assessment and Plan - Diagnosis (1) Acute kidney injury with acute tubular necrosis Is this a current diagnosis for this admission?: Yes Plan: Renal function continues to improve. Will discontinue IV fluids today and encourage p.o. hydration. Continue to monitor urine output closely and monitor for post-ATN diuresis which if present, will need augmentation with IV fluids to avoid dehydration. Daily BMPs (2) Asthma exacerbation Qualifiers: Asthma severity: unspecified severity Asthma persistence: unspecified Qualified Code(s): J45.901 - Unspecified asthma with (acute) exacerbation Is this a current diagnosis for this admission?: Yes Plan: Still having significant wheezing but a little bit better than yesterday. Continue duo nebs and long-acting inhaler. Solu-Medrol every 12 hours. azithromycin DAY 2/5. She will need controller/maintenance inhaler upon dis charge. (3) Chronic respiratory failure with hypoxia Is this a current diagnosis for this admission?: Yes Plan: Uses 2 L nasal cannula at home. However currently maintaining 100% on 2 L. Put on 2 L only if necessary. (4) Hypovolemic shock Is this a current diagnosis for this admission?: Yes Plan: Resolved (5) Hypertension Qualifiers: Hypertension type: essential hypertension Qualified Code(s): I10 - Essential (primary) hypertension Is this a current diagnosis for this admission?: Yes Plan: As blood pressure improves consider resuming anti-hypertensive meds - Time Time Spent with patient: Less than 15 minutes Anticipated Discharge Disposition: Home, Self Care Anticipated Discharge Timeframe: within 36 hours
[2020-02-06] MEDS: MONTELUKAST SODIUM 10 MG TABLET PO SCH (21:52)
[2020-02-06] MEDS: MELATONIN 5 MG TABLET PO SCH (21:52)
[2020-02-07] MEDS: IPRATROPIUM/ALBUTEROL 0.5-2.5 MG/3 ML AMPUL NEB SCH ×3 (01:59→14:10)
[2020-02-07] MEDS: HEPARIN SOD (PORCINE) 5,000 UNIT/ML 1 ML VIAL SUBCUT SCH (05:19)
[2020-02-07] MEDS: PANTOPRAZOLE SODIUM 40 MG TABLET.DR PO SCH (05:19)
[2020-02-07 07:52] LABS: ANION GAP 10 (5-19); BLOOD UREA NITROGEN 56 mg/dL (7-20); CALCIUM 9.3 mg/dL (8.4-10.2); CARBON DIOXIDE 22 mmol/L (22-30); CHLORIDE 109 mmol/L (98-107); GLUCOSE 160 mg/dL (75-110); POTASSIUM 3.9 mmol/L (3.6-5.0)
[2020-02-07] MEDS: ASCORBIC ACID 500 MG TABLET PO SCH (11:28)
[2020-02-07] MEDS: CHOLECALCIFEROL (D3) 1,000 UNIT (25 MCG) TABLET PO SCH (11:29)
[2020-02-07] MEDS: CITALOPRAM HYDROBROMIDE 20 MG TABLET PO SCH (11:29)
[2020-02-07] MEDS: ZINC SULFATE 220 MG CAPSULE PO SCH (11:29)
[2020-02-07] MEDS: AZITHROMYCIN 250 MG TABLET PO SCH (11:30)
[2020-02-07] MEDS: DOCUSATE SODIUM 100 MG CAPSULE PO SCH (11:34)
[2020-02-07] MEDS: METHYLPREDNISOLONE INJ 40 MG/1 ML SDV IV SCH (11:37)
[2020-02-07] MEDS: FLUTICASONE/VILANTEROL 100-25 MCG/DOSE IH SCH (11:37)
[2020-02-07 14:37] VITALS: BP 144/68
--- NOTE | 2020-02-07 15:04 | PDOC DISCHARGE SUMMARY ---
Impression - Admit/DC Date/PCP Admission Date/Primary Care Provider: 02/02/20 17:25 OLY PAL Discharge Date: 02/07/20 - Discharge Diagnosis (1) Acute kidney injury with acute tubular necrosis Is this a current diagnosis for this admission?: Yes (2) Hypovolemic shock Is this a current diagnosis for this admission?: Yes (3) Asthma exacerbation Is this a current diagnosis for this admission?: Yes (4) Chronic respiratory failure with hypoxia Is this a current diagnosis for this admission?: Yes (5) Hypertension Is this a current diagnosis for this admission?: Yes (6) Diarrhea Is this a current diagnosis for this admission?: Yes - Additional Information Resuscitation Status: Full Code Discharge Diet: As Tolerated Discharge Activity: Activity As Tolerated Referrals: ZORAIDA DUMONT MD [ACTIVE STAFF] - (02/06 1215 LEFT A MESSAGE FOR OFFICE TO CALL PATIENT WITH A HOSPITAL FOLLOW UP APPT DATE AND TIME ) OLY PAL MD [Primary Care Provider] - 02/11/20 10:45 am (PATIENT'S APPOINMENT WAS MADE BY DAUGHTER ) Prescriptions: Umeclidinium Brm/Vilanterol Tr [Anoro Ellipta 62.5-25 Mcg INH] 1 each IH DAILY #1 inhaler Prednisone [Deltasone 20 mg Tablet] 40 mg PO DAILY 3 Days #6 tablet Azithromycin [Zithromax 250 mg Tablet] 250 mg PO DAILY 2 Days #2 tablet Home Medications: Citalopram Hydrobromide [Celexa 20 mg Tablet] 20 mg PO DAILY 11/27/16 Lovastatin [Mevacor] 20 mg PO QPM 11/27/16 Omeprazole 40 mg PO DAILY 11/27/16 Multivitamin [Tab-A-Cesar (Multiple Vitamin) Tablet] 1 tab PO DAILY 02/17/19 Albuterol Sulfate [Albuterol Sulfate Hfa] 2 puff IH Q6HP PRN #1 ea 02/18/19 Cholestyramine (with Sugar) [Cholestyramine Packet] 1 packet PO BID 02/03/20 Ergocalciferol (Vitamin D2) [Drisdol 50,000 unit (1.25MG) Capsule] 50,000 unit PO GOMES@1000 02/03/20 Montelukast Sodium [Singulair 10 mg Tablet] 10 mg PO QPM 02/03/20 Oxycodone HCl/Acetaminophen [Percocet 5-325 mg Tablet] 1 tab PO Q8HP PRN 02/03/20 Azithromycin [Zithromax 250 mg Tablet] 250 mg PO DAILY 2 Days #2 tablet 02/07/20 Prednisone [Deltasone 20 mg Tablet] 40 mg PO DAILY 3 Days #6 tablet 02/07/20 Umeclidinium Brm/Vilanterol Tr [Anoro Ellipta 62.5-25 Mcg INH] 1 each IH DAILY #1 inhaler 02/07/20 History of Present Illiness History of Present Illness: According to admitting provider: MEL SHAY is a 69 year old female with a past medical history of hypertension, hypercholesterolemia and depression who states that approximately 1 to 2 weeks ago she began to feel poorly. She was noticing decreasing appetite. As the illness progressed she developed diarrhea with nausea and vomiting which have been overwhelming over the last several days. She denies having any fever or chills. She did not note any blood in the emesis or stool. On exam she was found to be in severe acute kidney failure. BUN was 103 with a creatinine of 11.71. In addition her lipase was 787. Lactic acid was negative x3. White blood cell count was 10.1 with a platelet count of 186. Based on the hypoxemia, hypotension and kidney failure she meets criteria for sepsis. The sepsis is due to an unknown etiology. She is making urine. She received the standard sepsis IV bolus and was given vancomycin, levofloxacin and azithromycin. Her creatinine clearance on admission was estimated at 11. Hospital Course Hospital Course: Patient presented to the hospital with severe hypovolemic shock with blood pressures in the 50s/30s. Notably, she was on Lasix as well as lisinopril/hydrochlorothiazide tablet. She had also been experiencing diarrhea nausea and vomiting for about a week prior to her presentation. She was noted to be in ALVIN with very poor renal function and creatinine of 11. Also noted to be hyperkalemic with hyperphosphatemia and hypermagnesemia secondary to her renal failure. She was treated with aggressive IV fluid hydration. Her urine had brown more the sediments suggestive of ATN likely secondary to hypotension from hypovolemia. Renal function improved significantly with several days of IV fluid hydration and her last measured creatinine has been 1.1. Lasix has been discontinued. She has been encouraged to monitor her urine output daily and to match urine output with fluid intake in order to avoid dehydration as sometimes some people who have post ATN autodiuresis. Her blood pressure has also normalized. As of now I have her blood pressure meds on hold as she has maintained acceptable blood pressures for her age while in the hospital off any BP meds. Regarding her diarrhea, she was planned for C. difficile test but diarrhea resolved. She did have some bouts of diarrhea yesterday but likely because she got some stool softeners. These have been discontinued. Patient did not have sepsis. Blood cultures were negative chest x-ray showed no evidence of pneumonia. Urinalysis was also negative for infection. Patient set up for follow-up with Dr. Dumont-nephrology. Patient was also treated for asthma exacerbation while in the hospital and treated with frequent nebulizer treatments, steroids initially IV and then switched to p.o. as well as azithromycin. She was tested for coronavirus which came back negative. Patient has been in good condition and ambulatory on her baseline oxygen of 2 L nasal cannula. She has been started on maintenance inhaler. She will following up with her primary care provider in the office. Physical Exam Vital Signs: Temp Pulse Resp BP Pulse Ox 98.0 F 73 14 144/68 H 100 02/07/20 14:35 02/07/20 14:35 02/07/20 14:35 02/07/20 14:35 02/07/20 14:35 Intake & Output 02/06/20 02/07/20 02/08/20 06:59 06:59 06:59 Intake Total 2070 120 Output Total 2250 900 Balance -180 -780 Weight 104.9 kg 104.9 kg General appearance: PRESENT: no acute distress, cooperative Neck exam: ABSENT: JVD Respiratory exam: PRESENT: tachypnea, unlabored, wheezes - mild Cardiovascular exam: PRESENT: RRR, +S1, +S2. ABSENT: tachycardia GI/Abdominal exam: PRESENT: soft. ABSENT: rebound, rigid, tenderness Neurological exam: PRESENT: alert, awake, oriented to person, oriented to place, oriented to time Results Laboratory Results: WBC 4.6 10^3/uL (4.0-10.5) 02/05/20 04:46 RBC 3.62 10^6/uL (3.72-5.28) L 02/05/20 04:46 Hgb 11.3 g/dL (12.0-15.5) L 02/05/20 04:46 Hct 32.6 % (36.0-47.0) L 02/05/20 04:46 MCV 90 fl (80-97) 02/05/20 04:46 MCH 31.2 pg (27.0-33.4) 02/05/20 04:46 MCHC 34.7 g/dL (32.0-36.0) 02/05/20 04:46 RDW 14.4 % (11.5-14.0) H 02/05/20 04:46 Plt Count 163 10^3/uL (150-450) 02/05/20 04:46 Lymph % (Auto) 7.6 % (13-45) L 02/03/20 06:25 Sully % (Auto) 0.7 % (3-13) L 02/03/20 06:25 Eos % (Auto) 0.0 % (0-6) 02/03/20 06:25 Baso % (Auto) 0.1 % (0-2) 02/03/20 06:25 Absolute Neuts (auto) 4.6 10^3/uL (1.7-8.2) 02/03/20 06:25 Absolute Lymphs (auto) 0.4 10^3/uL (0.5-4.7) L 02/03/20 06:25 Absolute Monos (auto) 0.0 10^3/uL (0.1-1.4) L 02/03/20 06:25 Absolute Eos (auto) 0.0 10^3/uL (0.0-0.6) 02/03/20 06:25 Absolute Basos (auto) 0.0 10^3/uL (0.0-0.2) 02/03/20 06:25 Seg Neutrophils % 91.6 % (42-78) H 02/03/20 06:25 PT 13.2 SEC (11.4-15.4) 02/02/20 12:25 INR 0.98 02/02/20 12:25 D-Dimer 3.08 ug/mL (0.00-0.50) H 02/02/20 12:25 Carbonic Acid 1.01 mmol/L (1.05-1.35) L 02/02/20 12:30 HCO3/H2CO3 Ratio 11:1 02/02/20 12:30 ABG pH 7.16 (7.35-7.45) L* 02/02/20 12:30 ABG pCO2 33.5 mmHg (35-45) L 02/02/20 12:30 ABG pO2 139.1 mmHg (80-100) H 02/02/20 12:30 ABG HCO3 11.8 mmol/L (20-24) L 02/02/20 12:30 ABG Total CO2 12.8 mmol/L (21-25) L 02/02/20 12:30 ABG O2 Saturation 98.1 % (94-98) H 02/02/20 12:30 ABG Base Excess -15.8 mmol/L 02/02/20 12:30 VBG pH 7.14 (7.30-7.42) L* 02/02/20 16:45 VBG pCO2 46.1 mmHg (35-63) 02/02/20 16:45 VBG HCO3 15.3 mmol/L (20-32) L 02/02/20 16:45 VBG Base Excess -13.3 mmol/L 02/02/20 16:45 FiO2 2L 02/02/20 12:30 Sodium 140.5 mmol/L (137-145) 02/07/20 05:26 Potassium 3.9 mmol/L (3.6-5.0) 02/07/20 05:26 Chloride 109 mmol/L (98-107) H 02/07/20 05:26 Carbon Dioxide 22 mmol/L (22-30) 02/07/20 05:26 Anion Gap 10 (5-19) 02/07/20 05:26 BUN 56 mg/dL (7-20) H 02/07/20 05:26 Creatinine 1.16 mg/dL (0.52-1.25) 02/07/20 05:26 Est GFR ( Amer) 56 (>60) L 02/07/20 05:26 Est GFR (Non-Af Amer) Cancelled 02/02/20 12:25 Est GFR (MDRD) Non-Af 46 (>60) L 02/07/20 05:26 Glucose 160 mg/dL (75-110) H 02/07/20 05:26 Lactic Acid 0.9 mmol/L (0.7-2.1) 02/02/20 17:20 Calcium 9.3 mg/dL (8.4-10.2) 02/07/20 05:26 Phosphorus 4.2 mg/dL (2.5-4.5) D 02/05/20 04:46 Magnesium 1.7 mg/dL (1.6-2.3) 02/05/20 04:46 Ferritin 159.00 ng/mL (11.1-264.0) 02/02/20 12:25 Total Bilirubin 1.1 mg/dL (0.2-1.3) 02/02/20 12:25 Direct Bilirubin 1.1 mg/dL (0.0-0.4) H 02/02/20 12:25 Neonat Total Bilirubin Not Reportable 02/02/20 12:25 Neonat Direct Bilirubin Not Reportable 02/02/20 12:25 Neonat Indirect Bili Not Reportable 02/02/20 12:25 AST 23 U/L (14-36) 02/02/20 12:25 ALT 16 U/L (<35) 02/02/20 12:25 Alkaline Phosphatase 77 U/L (38-126) 02/02/20 12:25 Lactate Dehydrogenase 181 U/L (120-246) 02/02/20 19:00 Creatine Kinase 86 U/L (30-135) 02/02/20 12:25 Troponin I < 0.012 ng/mL 02/02/20 12:25 C-Reactive Protein 30.9 mg/L (<10.0) H 02/02/20 12:25 Total Protein 7.1 g/dL (6.3-8.2) 02/02/20 12:25 Albumin 3.4 g/dL (3.5-5.0) L 02/05/20 04:46 Lipase 523.3 U/L (23-300) H 02/03/20 06:25 EGFR Cancelled 02/02/20 12:25 Urine Color YELLOW 02/02/20 14:47 Urine Appearance SLIGHTLY-CLOUDY 02/02/20 14:47 Urine pH 5.0 (5.0-9.0) 02/02/20 14:47 Ur Specific [place] 1.013 02/02/20 14:47 Urine Protein 30 mg/dL (NEGATIVE) H 02/02/20 14:47 Urine Glucose (UA) NEGATIVE mg/dL (NEGATIVE) 02/02/20 14:47 Urine Ketones NEGATIVE mg/dL (NEGATIVE) 02/02/20 14:47 Urine Blood NEGATIVE (NEGATIVE) 02/02/20 14:47 Urine Nitrite NEGATIVE (NEGATIVE) 02/02/20 14:47 Urine Bilirubin SMALL (NEGATIVE) H 02/02/20 14:47 Urine Urobilinogen NEGATIVE mg/dL (<2.0) 02/02/20 14:47 Ur Leukocyte Esterase NEGATIVE (NEGATIVE) 02/02/20 14:47 Urine WBC (Auto) 3 /HPF 02/02/20 14:47 Urine RBC (Auto) 2 /HPF 02/02/20 14:47 Urine Bacteria (Auto) TRACE /HPF 02/02/20 14:47 Squamous Epi Cells Auto 1 /HPF 02/02/20 14:47 Urine Mucus (Auto) RARE /LPF 02/02/20 14:47 Urine Ascorbic Acid NEGATIVE (NEGATIVE) 02/02/20 14:47 COVID-19 Source NASOPHARYNGEAL 02/02/20 12:45 COVID-19 (CHASITY) NOT DETECTED 02/02/20 12:45 Influenza A (Rapid) NEGATIVE (NEGATIVE) 02/02/20 12:45 Influenza B (Rapid) NEGATIVE (NEGATIVE) 02/02/20 12:45 02/02/20 12:25 Troponin I < 0.012 Impressions: Abdomen/Pelvis CT 02/02/20 13:37 IMPRESSION: No CT evidence of acute pancreatitis. No acute abnormality in the abdomen or pelvis. Bilateral renal cortical cysts. Plan Time Spent: Greater than 30 Minutes Stroke Is this a Stroke Patient?: No Acute Heart Failure Is this a Heart Failure Patient?: No
== END 2020-02-07 15:00 | disposition home or self-care (01) | DRG 682 ==
LOC: ER 11:01 → EH 17:25 → 3N 22:35 → 3S 02-05 15:15 → 3N 02-05 15:16 → 4W 02-05 15:53
PROVIDERS: ADMIT Hospitalist; ATTEND Internal Medicine
DX: N17.0 Acute kidney failure with tubular necrosis (principal); R57.1 Hypovolemic shock; J96.11 Chronic respiratory failure with hypoxia; J45.901 Unspecified asthma with (acute) exacerbation; E87.2 Acidosis; E87.5 Hyperkalemia; E83.39 Other disorders of phosphorus metabolism; E83.41 Hypermagnesemia; Z20.828 Contact with and (suspected) exposure to other viral communicable diseases; E78.00 Pure hypercholesterolemia, unspecified; I10 Essential (primary) hypertension; K21.9 Gastro-esophageal reflux disease without esophagitis; F32.9 Major depressive disorder, single episode, unspecified; Z99.81 Dependence on supplemental oxygen; Z79.891 Long term (current) use of opiate analgesic; Z79.51 Long term (current) use of inhaled steroids; Z79.899 Other long term (current) drug therapy
CPT/HCPCS: 36415; 36600; 51702; 71045; 74176; 80048; 80053; 80069; 81001; 82550; 82728; 82803; 83605; 83615; 83690; 83735; 84484; 85025; 85027; 85379; 85610; 86140; 87040; 87635; 87804; 93005; 93010; 94640; 96361; 96365; 96368; 96375; 99283; 99285; C9803; J0456; J0692; J0780; J1100; J1644; J1650; J1956; J2270; J2920; J3370; J3475; J3490; J7050; J7060; J7120

== ENCOUNTER → 2020-05-05 | Outpatient (CLI) | payer MEDICARE, MEDICAID ==
--- NOTE | 2020-05-05 14:12 | RADIOLOGY REPORT (SQ) ---
EXAM DESCRIPTION: U/S RETROPERITON (RENAL/AORTA) IMAGES COMPLETED DATE/TIME: 05/05/2020 1:15 pm REASON FOR STUDY: (N28.1)CYST OF KIDNEY, ACQUIRED N28.1 CYST OF KIDNEY, ACQUIRED COMPARISON: 10/06/2013 TECHNIQUE: Dynamic and static grayscale images acquired of the kidneys and bladder and recorded on P ACS. Additional selected color Doppler and spectral images recorded. LIMITATIONS: None. FINDINGS: RIGHT KIDNEY: The right kidney measures 12.9 x 5.8 x 5.9 cm, normal size. Diffuse increa sed echogenicity of the kidneys may be related medical renal disease. A 3.2 x 3.6 x 3.4 cm cyst in t he upper pole of the kidney. No hydronephrosis. No calcifications. LEFT KIDNEY: The left kidney measures 11.4 x 6.5 x 7.2 cm, normal size. Diffuse increased echogenic ity of the kidney, may be on the basis of medical renal disease. A 6.6 x 5.4 x 5.0 cm cyst in the mi d pole of the kidney. No hydronephrosis. No calcifications. BLADDER: No masses. Bilateral ureteral jets are not visualized. OTHER FINDINGS: No other significant finding. IMPRESSION: 1. Diffuse increased echogenicity of the kidneys, may be related to medical renal disea se. 2. Bilateral renal cysts. 3. No hydronephrosis. TECHNICAL DOCUMENTATION: JOB ID: [id number] 2010 [employer]- All Rights Reserved Reading location - IP/workstation name: [email or web address]
== END ==
LOC: RAD 12:49
PROVIDERS: ATTEND Internal Medicine Nephrology
DX: N28.1 Cyst of kidney, acquired (principal)
CPT/HCPCS: 76770

== ENCOUNTER → 2020-06-01 | Outpatient (CLI) | payer MEDICARE, MEDICAID ==
--- NOTE | 2020-06-01 08:43 | WOMENS IMAGING REPORT ---
EXAM DESCRIPTION: BILAT SCREENING MAMMO W/CAD IMAGES COMPLETED DATE/TIME: 06/01/2020 7:53 am REASON FOR STUDY: ROUTINE BILATERAL SCREENING;Z12.31 Z12.31 ENCNTR SCREEN MAMMOGRAM FOR MALIGNANT N EOPLASM OF KATJA COMPARISON: 2016 and subsequent. EXAM PARAMETERS: Standard craniocaudal and mediolateral oblique views of each breast recorded using digital acquisition. Read with the assistance of CAD. .[facility] - [employer] Version 9.2 LIMITATIONS: None. FINDINGS: No suspicious masses, suspicious calcifications or architectural distortion. No areas of c oncern. IMPRESSION: NEGATIVE MAMMOGRAM. BIRADS 1 BREAST DENSITY: b. There are scattered areas of fibroglandular density. BIRAD: ASSESSMENT: 1 NEGATIVE RECOMMENDATION: ROUTINE SCREENING COMMENT: The patient has been notified of the results by letter per MQSA requirements. Additional no tification policies are in place for contacting patient with suspicious or incomplete findings. Quality ID #[id number]: The [employer] recommends an annual screening mammogram for women aged 40 years or over. This facility utilizes a reminder system to ensure that all patients receive reminder letters, and/or direct phone calls for appointments. This includes reminders for routine scr eening mammograms, diagnostic mammograms, or other Breast Imaging Interventions when appropriate. Th is patient will be placed in the appropriate reminder system. TECHNICAL DOCUMENTATION: FINDING NUMBER: (1) ASSESSMENT: (1) JOB ID: [id number] 2010 [employer]- All Rights Reserved Reading location - IP/workstation name: [email or web address]
== END ==
LOC: WI 07:34
PROVIDERS: ATTEND Internal Medicine
DX: Z12.31 Encounter for screening mammogram for malignant neoplasm of breast (principal)
CPT/HCPCS: 77067

== ENCOUNTER 2020-06-03 10:49 | Day surgery (SDC) | payer MEDICARE, MEDICAID ==
[~2020-06-03 10:49] MED LIST: KETOROLAC TROMETHAMINE 0.45% 4 DROP/0.4 ML DROPERETTE OD PRN
[2020-06-03] MEDS ORDERED: ONDANSETRON HCL INJ/PF 4 MG/2 ML SDV ONE (10:51)
[2020-06-03] MEDS ORDERED: MIDAZOLAM 2 MG/2 ML INJ ONE (10:51)
[2020-06-03] MEDS ORDERED: FENTANYL CITRATE INJ/PF 100 MCG/2 ML AMPUL ONE (10:52)
[2020-06-03] MEDS: TETRACAINE HCL 0.5% OPH SOLN 4 ML OD PRN ×3 (11:25→11:55)
[2020-06-03] MEDS: CYCLOPENTOLATE 0.2%/PHENYLEPHRINE 1% OPH SOLN 2 ML OD PRN ×3 (11:25→11:41)
[2020-06-03] MEDS: TROPICAMIDE 1% OPH SOLN 15 ML OD PRN ×3 (11:26→11:41)
[2020-06-03] MEDS: BESIFLOXACIN HCL 0.6% OPH SUSP 5 ML BOTTLE OD PRN ×4 (11:26→12:18)
[2020-06-03] MEDS ORDERED: HYALURONATE SODIUM SYRINGE 0.55 ML ONE (11:39)
[2020-06-03] MEDS: EPINEPHRINE INJ/PF 1 MG/1 ML AMPULE ONE ×2 (12:05)
[2020-06-03] MEDS: LIDOCAINE 1%/PHENYLEPHRINE 1.5% 1 ML VIAL ONE ×2 (12:05)
[2020-06-03] MEDS: CHONDR SU A NA/HYALUR INTRAOC KIT (SURGICARE) ONE ×2 (12:05)
[2020-06-03] MEDS: DORZOLAMIDE HCL 2%/TIMOLOL MALEAT 0.5% OPH SOLN 10 ML OD PRN ×2 (12:18)
[2020-06-03] MEDS: PREDNISOLONE ACETATE 1% OPH SUSP 5 ML OD PRN ×2 (12:18)
--- NOTE | 2020-06-03 15:35 | Operative Report ---
Operative Report-[facility] Operative Report: DATE OF SURGERY: [] PREOPERATIVE DIAGNOSIS: NUCLEAR CATARACT, RIGHT EYE. Glaucoma POSTOPERATIVE DIAGNOSIS: NUCLEAR CATARACT, RIGHT EYE. Glaucoma PROCEDURE PERFORMED: PHACOEMULSIFICATION WITH POSTERIOR CHAMBER INTRAOCULAR LENS IMPLANT, RIGHT EYE. Transluminal dilation of the canal with goniotomy SURGEON: Fritz Colon DO MEDICATIONS AND ANESTHESIA: Versed: IV Versed Tetracaine drops: 1 to 2 drops given as needed COMPLICATION: [None] INDICATIONS FOR SURGERY: Medical necessity: Best corrected visual acuity worse than 20/40 secondary to cataracts with impairment of ability to carry out needs or desired activities, blurred vision, visual distortion, reduced contrast sensitivity and/or glare with association functional impairment and supporting documentation/testing, and cataracts causing symptomatic impairment of visual functions not corrected with tolerable changes in glasses or contact lenses interfering with activities of daily life. PROCEDURE: Consent: The risks, benefits and alternatives of this procedures was discussed with the patient. The patient read and signed the consent forms, was identified and was seated in the exam chair. IOL: [MX 60 E 21.0] IOL Diopters: [] Phacoemulsification with posterior chamber intraocular lens implant: The face was prepped with 5% povidone iodine solution, and a few drops of 5% povidone iodine solution was instilled into the inferior fornix. A non-fenestrated drape was placed over the eye and the lids were parted with the speculum. A par acentesis was made with a 15 degree blade, and 1% lidocaine MPF followed by viscoelastic was injected into the anterior chamber. A 2.4 mm metal micro- keratome was used to create a temporal clear corneal incision. A circular anterior capsulorrhexis was created, followed by hydro-dissection and hydro- delineation. The phacoemulsification hand piece was inserted and the nucleus was removed with the Phaco chop technique. The irrigation-aspiration hand piece was used to remove the residual cortex, and vacuum the posterior capsule. The capsular bag was inflated and viscoelastic and the above-mentioned IOL was injected into the eye with care to insert both leaning and trailing haptics in the capsular bag. The irrigation/aspiration hand piece was reinserted to remove residual viscoelastic from the capsular bag and anterior chamber. The corneal incision was hydrated, and anterior chamber was inflated with sterile BSS via the paracentesis site, and found to be watertight. In addition the Omni device was used to perform a transluminal dilation of the canal with goniotomy in the superior 180 degrees. Postop medication: 1 drop of prednisolone into operative by followed by 1 drop of Cosopt into operative eye followed by 1 drop of Besivance intraoperative by other: []
== END 2020-06-03 12:55 | disposition home or self-care (01) ==
LOC: SC 10:49
PROVIDERS: ATTEND Ophthalmology
DX: H25.11 Age-related nuclear cataract, right eye (principal); H40.1132 Primary open-angle glaucoma, bilateral, moderate stage; J45.909 Unspecified asthma, uncomplicated; I10 Essential (primary) hypertension; E78.00 Pure hypercholesterolemia, unspecified; Z79.51 Long term (current) use of inhaled steroids; E66.9 Obesity, unspecified
CPT/HCPCS: 66984; 66175; V2632; J2250; J3490 ×3; A9270; J0171; J3010; J2405

== ENCOUNTER 2020-06-17 10:15 | Day surgery (SDC) | payer MEDICARE, MEDICAID ==
[~2020-06-17 10:15] MED LIST changes: +CHONDR SU A NA/HYALUR INTRAOC KIT (SURGICARE) ONE; +EPINEPHRINE INJ/PF 1 MG/1 ML AMPULE ONE; -KETOROLAC TROMETHAMINE 0.45% 4 DROP/0.4 ML DROPERETTE OD PRN; +KETOROLAC TROMETHAMINE 0.45% 4 DROP/0.4 ML DROPERETTE OS PRN; +LIDOCAINE 1%/PHENYLEPHRINE 1.5% 1 ML VIAL ONE
[2020-06-17] MEDS ORDERED: MIDAZOLAM 2 MG/2 ML INJ ONE (10:38)
[2020-06-17] MEDS: TROPICAMIDE 1% OPH SOLN 15 ML OS PRN ×3 (11:01→11:21)
[2020-06-17] MEDS: BESIFLOXACIN HCL 0.6% OPH SUSP 5 ML BOTTLE OS PRN ×4 (11:01→12:02)
[2020-06-17] MEDS: CYCLOPENTOLATE 0.2%/PHENYLEPHRINE 1% OPH SOLN 2 ML OS PRN ×3 (11:01→11:21)
[2020-06-17] MEDS: TETRACAINE HCL 0.5% OPH SOLN 4 ML OS PRN ×3 (11:02→11:40)
[2020-06-17] MEDS ORDERED: HYALURONATE SODIUM SYRINGE 0.55 ML ONE (11:18)
[2020-06-17] MEDS: MOXIFLOXACIN 1 MG/ML-BSS OPH SOLN 1 ML VIAL ONE ×2 (11:52→12:00)
[2020-06-17] MEDS: DORZOLAMIDE HCL 2%/TIMOLOL MALEAT 0.5% OPH SOLN 10 ML OS PRN ×2 (11:52→12:02)
[2020-06-17] MEDS: PREDNISOLONE ACETATE 1% OPH SUSP 5 ML OS PRN ×2 (11:52→12:02)
--- NOTE | 2020-06-17 14:28 | Operative Report ---
Operative Report-[facility] Operative Report: DATE OF SURGERY: June 17, 2020 PREOPERATIVE DIAGNOSIS: NUCLEAR CATARACT, LEFT EYE. Glaucoma POSTOPERATIVE DIAGNOSIS: NUCLEAR CATARACT, LEFT EYE. Glaucoma PROCEDURE PERFORMED: PHACOEMULSIFICATION WITH POSTERIOR CHAMBER INTRAOCULAR LENS IMPLANT, LEFT EYE. Minimally invasive glaucoma surgery with transluminal dilation of the aqueous outflow and goniotomy SURGEON: Fritz Colon DO MEDICATIONS AND ANESTHESIA: Versed: IV Versed Tetracaine drops: 1 to 2 drops given as needed COMPLICATION: None INDICATIONS FOR SURGERY: Medical necessity: Best corrected visual acuity worse than 20/40 secondary to cataracts with impairment of ability to carry out needs or desired activities, blurred vision, visual distortion, reduced contrast sensitivity and/or glare with association functional impairment and supporting documentation/testing, and cataracts causing symptomatic impairment of visual functions not corrected with tolerable changes in glasses or contact lenses interfering with activities of daily life. PROCEDURE: Consent: The risks, benefits and alternatives of this procedures was discussed with the patient. The patient read and signed the consent forms, was identified and was seated in the exam chair. IOL: MX 60 E 20.5 IOL Diopters: Phacoemulsification with posterior chamber intraocular lens implant: The face was prepped with 5% povidone iodine solution, and a few drops of 5% povidone iodine solution was instilled into the inferior fornix. A non-fenestrated drape was placed over the eye and the lids were parted with the speculum. A paracentesis was made with a 15 degree blade, and 1% lidocaine MPF followed by viscoelastic was injected into the anterior chamber. A 2.4 mm metal micro- keratome was used to create a temporal clear corneal incision. A circular anterior capsulorrhexis was created, followed by hydro-dissection and hydro- delineation. The phacoemulsification hand piece was inserted and the nucleus was removed with the Phaco chop technique. The irrigation-aspiration hand piece was used to remove the residual cortex, and vacuum the posterior capsule. The capsular bag was inflated and viscoelastic and the above-mentioned IOL was injected into the eye with care to insert both leaning and trailing haptics in the capsular bag. The irrigation/aspiration hand piece was reinserted to remove residual viscoelastic from the capsular bag and anterior chamber. The corneal incision was hydrated, and anterior chamber was inflated with sterile BSS via the paracentesis site, and found to be watertight. In addition the Omni device was used to perform transluminal dilation of the aqueous outflow and goniotomy of the inferior 180 degrees. Postop medication:1 drop of prednisolone into operative by followed by 1 drop of Cosopt into operative eye followed by 1 drop of Besivance intraoperative by Other:
== END 2020-06-17 12:34 | disposition home or self-care (01) ==
LOC: SC 10:15
PROVIDERS: ATTEND Ophthalmology
DX: H25.12 Age-related nuclear cataract, left eye (principal); Z98.41 Cataract extraction status, right eye; H40.1132 Primary open-angle glaucoma, bilateral, moderate stage; I10 Essential (primary) hypertension; E78.00 Pure hypercholesterolemia, unspecified
CPT/HCPCS: 66984; 66174; V2632; J2250; J3490 ×4; A9270; J0171